=== PATIENT | female | born 1975 | race Caucasian/White ===

== ENCOUNTER → 2019-10-21 07:47 | Outpatient (BNVA) | payer BC, SELFPAY | PROVIDERS: Family Provider Family Medicine; PCP Nurse Practitioner; Visit Provider Nurse Practitioner Psychiatric/Mental Health | DX: F33.3 Major depressive disorder, recurrent, severe with psychotic symptoms (principal); F41.1 Generalized anxiety disorder | CPT/HCPCS: 99214 ==

== ENCOUNTER → 2019-11-01 07:41 | Outpatient (BNVA) | payer BC, SELFPAY | PROVIDERS: Family Provider Family Medicine; PCP Nurse Practitioner; Visit Provider Social Worker | DX: F33.2 Major depressive disorder, recurrent severe without psychotic features (principal); F43.12 Post-traumatic stress disorder, chronic; F43.8 Other reactions to severe stress | CPT/HCPCS: 90834 ==

== ENCOUNTER → 2019-11-05 15:35 | Outpatient (BNVA) | payer BC, SELFPAY | PROVIDERS: Family Provider Family Medicine; PCP Nurse Practitioner; Referring Provider Nurse Practitioner; Visit Provider Obstetrics & Gynecology | DX: N95.0 Postmenopausal bleeding (principal) | CPT/HCPCS: 83001; 84146; 84443; 84703; 85025 ==

== ENCOUNTER → 2019-11-11 14:04 | Outpatient (BNVA) | payer BC, SELFPAY | PROVIDERS: Family Provider Family Medicine; PCP Nurse Practitioner; Visit Provider Obstetrics & Gynecology | DX: N93.9 Abnormal uterine and vaginal bleeding, unspecified (principal); N83.202 Unspecified ovarian cyst, left side | CPT/HCPCS: 76830 ==

== ENCOUNTER 2019-11-15 06:00 | Outpatient (CLI) | payer BC, SELFPAY | END 2019-11-15 07:00 | disposition home or self-care (01) | LOC: RADSHAW 04-18 11:46 | PROVIDERS: Family Provider Nurse Practitioner Family; PCP Nurse Practitioner Family; Visit Provider Social Worker | DX: F33.2 Major depressive disorder, recurrent severe without psychotic features (principal); F43.12 Post-traumatic stress disorder, chronic; F43.8 Other reactions to severe stress | CPT/HCPCS: 90834 ==

== ENCOUNTER → 2019-11-29 10:21 | Outpatient (BNVA) | payer BC, SELFPAY | PROVIDERS: Family Provider Family Medicine; PCP Nurse Practitioner; Visit Provider Social Worker | DX: F33.2 Major depressive disorder, recurrent severe without psychotic features (principal); F43.12 Post-traumatic stress disorder, chronic | CPT/HCPCS: 90834 ==

== ENCOUNTER → 2019-12-06 09:24 | Outpatient (BNVA) | payer BC, SELFPAY | PROVIDERS: Family Provider Family Medicine; PCP Nurse Practitioner; Visit Provider Social Worker | DX: F41.1 Generalized anxiety disorder (principal); F33.3 Major depressive disorder, recurrent, severe with psychotic symptoms | CPT/HCPCS: 90834 ==

== ENCOUNTER → 2019-12-21 07:51 | Outpatient (BNVA) | payer BC, SELFPAY | PROVIDERS: Family Provider Family Medicine; PCP Nurse Practitioner; Visit Provider Nurse Practitioner Psychiatric/Mental Health | DX: F33.3 Major depressive disorder, recurrent, severe with psychotic symptoms (principal); F41.1 Generalized anxiety disorder; F43.12 Post-traumatic stress disorder, chronic | CPT/HCPCS: 99214 ==

== ENCOUNTER → 2019-12-22 08:57 | Outpatient (BNVA) | payer BC, SELFPAY | PROVIDERS: Family Provider Family Medicine; PCP Nurse Practitioner; Visit Provider Obstetrics & Gynecology | DX: N91.1 Secondary amenorrhea (principal); Z30.9 Encounter for contraceptive management, unspecified; E03.9 Hypothyroidism, unspecified | CPT/HCPCS: 84443 ==

== ENCOUNTER → 2019-12-23 07:58 | Outpatient (BNVA) | payer BC, SELFPAY | PROVIDERS: Family Provider Family Medicine; PCP Nurse Practitioner; Visit Provider Social Worker | DX: F41.1 Generalized anxiety disorder (principal); F31.89 Other bipolar disorder | CPT/HCPCS: 90834 ==

== ENCOUNTER → 2019-12-30 08:17 | Outpatient (BNVA) | payer BC, SELFPAY | PROVIDERS: Family Provider Family Medicine; PCP Nurse Practitioner; Visit Provider Nurse Practitioner Psychiatric/Mental Health | DX: F33.3 Major depressive disorder, recurrent, severe with psychotic symptoms (principal) | CPT/HCPCS: 99214 ==

== ENCOUNTER → 2020-01-05 09:11 | Outpatient (BNVA) | payer BC, SELFPAY | PROVIDERS: Family Provider Family Medicine; Visit Provider Social Worker | DX: F33.2 Major depressive disorder, recurrent severe without psychotic features (principal); F41.1 Generalized anxiety disorder; F31.89 Other bipolar disorder | CPT/HCPCS: 90834 ==

== ENCOUNTER → 2020-01-12 07:57 | Outpatient (BNVA) | payer BC, SELFPAY | PROVIDERS: Family Provider Family Medicine; Visit Provider Social Worker | DX: F33.3 Major depressive disorder, recurrent, severe with psychotic symptoms (principal); F43.12 Post-traumatic stress disorder, chronic; F43.29 Adjustment disorder with other symptoms | CPT/HCPCS: 90834 ==

== ENCOUNTER → 2020-01-17 07:38 | Outpatient (BNVA) | payer BC, SELFPAY | PROVIDERS: Family Provider Family Medicine; Visit Provider Nurse Practitioner Psychiatric/Mental Health | DX: F33.3 Major depressive disorder, recurrent, severe with psychotic symptoms (principal); F41.1 Generalized anxiety disorder | CPT/HCPCS: 99214 ==

== ENCOUNTER 2020-01-19 14:57 | Outpatient (CLI) | payer BC, SELFPAY ==
--- NOTE | 2020-01-19 | MR_ITS ---
WS: [id number] MRI LUMBAR SPINE NONCONTRAST TECHNIQUE: Sagittal T1, T2 and STIR imaging. Axial T1 and T2 imaging. CLINICAL INFORMATION: RADICULOPATHY LUMBAR REGION COMPARISON: None. FINDINGS: Mild lumbar curve. No acute compression. No high-grade central canal stenosis. Hypertrophic changes l ower thoracic spine. Small disc protrusions in the mid thoracic spine at T6-T8 with mild central shai l stenosis. L1-L2: Normal. L2-L3: Mild annular bulging. Narrowing of the right subarticular recess. Mild right and no significan t left foraminal narrowing. Moderate facet arthropathy. L3-L4: Small left foraminal protrusion slightly impinges the exiting left L3 nerve root with mild to moderate left foraminal narrowing. Right foramen is patent. Moderate facet arthropathy. L4-L5: Mild disc bulging with mild central canal stenosis and narrowing of the subarticular recess bi laterally. Moderate facet arthropathy. Small right foraminal protrusion with mild right greater than left foraminal narrowing. L5-S1:Mild annular bulging. Spinal canal and foramen are patent. Mild facet arthropathy. Visualized pelvic bony structures: Normal. Paravertebral soft tissues: Normal. MR/MR lumbar spine wo con* [id number] IMPRESSION: 1. Mild lumbar curve. No acute compression. No high-grade central canal stenos is. 2. Annular bulging L4-5 with narrowing of the subarticular recess bilaterally and slight impingement traversing L5 nerve roots. Mild central canal stenosis a t this level with moderate facet arthropathy. 3. Small right foraminal protrusion L4-5 with mild right foraminal narrowing. 4. Left foraminal protrusion L3-4 impinges the exiting left L3 nerve root with mild to moderate left foraminal narrowing. 5. Right subarticular protrusion L2-3 slightly impinges the traversing right L 3 nerve root with mild right foraminal narrowing. 6. Moderate facet arthropathy L3-L5.
== END 2020-01-19 14:58 | disposition home or self-care (01) ==
LOC: RADSHAW 15:01
PROVIDERS: PCP Nurse Practitioner Family; Visit Provider Anesthesiology Pain Medicine
DX: M54.16 Radiculopathy, lumbar region (principal); M51.26 Other intervertebral disc displacement, lumbar region; M47.816 Spondylosis without myelopathy or radiculopathy, lumbar region
CPT/HCPCS: 72148

== ENCOUNTER → 2020-01-20 07:59 | Outpatient (BNVA) | payer BC, SELFPAY | PROVIDERS: PCP Nurse Practitioner Family; Visit Provider Social Worker | DX: F33.3 Major depressive disorder, recurrent, severe with psychotic symptoms (principal); F43.12 Post-traumatic stress disorder, chronic | CPT/HCPCS: 90834 ==

== ENCOUNTER 2020-01-21 07:30 | Day surgery (SDC) | payer BC, SELFPAY ==
[2020-01-19 10:00] VITALS: BMI 39.3
[2020-01-21] MEDS: sodium chloride 0.9% 1,000 ML 30 ML IV (07:45)
[2020-01-21 07:49] VITALS: BP 129/68; PULSE 73; RESP 18; TEMP 36.3; O2SAT 96
[2020-01-21 07:58] LABS: Glucose Point of Care 106 mg/dL (70-110)
[2020-01-21 08:00] LABS: OR HCG Qualitative Urine Negative (Negative)
--- NOTE | 2020-01-21 08:05 | ANES.PREANE2 ---
Pre-Anesthetic Assessment Pre-Anesthetic Assessment: Height/Weight: Height 1.63 m Weight 103.873 kg Temp Pulse Resp BP Pulse Ox 97.3 F L 73 18 129/68 96 01/21/20 07:49 01/21/20 07:49 01/21/20 07:49 01/21/20 07:49 01/21/20 07:49 Preop Diagnosis: change in bowel habits Proposed Procedure: Operation Date: 01/21/20 09:05 Proposed Procedures p EGD [id number], 18665, R19.4, R19.7(Not Applicable) - Vitaliy Haji MD s Colonoscopy(Not Applicable) - Vitaliy Haji MD Familial anesthetic complications: None Was Beta Sandeep taken within 24 hours: Yes Last intake: Intake Last Liquid Date 01/20/20 Last Liquid Time 23:45 Last Solid Date 01/19/20 Social: Social History: No alcohol and No tobacco Exam: Pre-Anes Outpt Exam: alert, oriented x 3, clear to auscultation bilaterally and regular rate & rhythm Airway: Cervical ROM: WNL MP: 1 Dentition: Chipped Pulmonary: Pulmonary: Sleep apnea (CPAP) CV/HEM: CV/HEM: Murmur : : None reported Hepatic: Hepatic: None reported GI: GI: GERD Metabolic: Metabolic: DM, Morbid obesity and Thyroid Musc/skel: Musc/skel: Lower Back Pain Anesthetic Plan: ASA status: 2 Anesthesia: MAC Risk of > 500 ml blood loss (7ml/kg in children): No PFSH Anesthesia PFSH: Medical History (Updated 12/30/19 @ 13:52 by Kp George MD) Diabetes mellitus Generalized anxiety disorder GI bleed due to NSAIDs History of gallbladder disease Major depressive disorder, recurrent episode with mood-congruent psychotic features Obstructive sleep apnea Surgical History History of carpal tunnel surgery Family History Mother Heart disease Stroke Diabetes Brother Diabetes Grandmother Stroke maternal Social History Smoking and tobacco status: former smoker Quit status (tobacco): has quit using tobacco Year quit tobacco: 2011 Alcohol intake: never Marital status: History of recent travel: No Current gender identity: Female Data Anesthesia Other Labs: Laboratory Results - last 48 hr 01/21/20 01/21/20 07:54 07:58 POC Glucose 106 Urine HCG, Qual Negative Cardiac Studies: No Data to Display
--- NOTE | 2020-01-21 09:10 | P.HP_ITS ---
Same Day Surgery H&P Indication for Procedure/HPI DATE OF PROCEDURE: January 21, 2020 CHIEF COMPLAINT/INDICATIONFOR SURGICAL PROCEDURE: Chronic diarrhea PREOP DIAGNOSIS: change in bowel habits PLANNED PROCEDRUE: Operation Date: 01/21/20 09:05 Proposed Procedures p EGD 56480, 59853, R19.4, R19.7(Not Applicable) - Vitaliy Haji MD s Colonoscopy(Not Applicable) - Vitaliy Haji MD Medications/Allergies* Home Medications Medication Instructions Recorded Confirmed Type amitriptyline 100 mg tablet 100 mg PO .HS tab 09/06/19 01/21/20 History metformin 1,000 mg tablet,extended 1,000 mg PO BID 09/06/19 01/21/20 History release 24hr oxycodone 30 mg tablet 30 mg PO Q4H PRN 09/06/19 01/21/20 History pregabalin 75 mg capsule 75 mg PO BID 09/06/19 01/21/20 History dicyclomine 10 mg capsule 10 mg PO BID 10/21/19 01/21/20 History liraglutide 0.6 mg/0.1 mL (18 mg/3 0.6 mg SUBCUT Q24H ml 10/21/19 01/21/20 History mL) subcutaneous pen injector pantoprazole 40 mg tablet,delayed 40 mg PO BID tab 10/21/19 01/21/20 History release vitamins no.69-iron 27 1 cap PO DAILY 10/21/19 01/21/20 History mg-folate no.6 1 mg-dha 400 mg capsule ropinirole 4 mg tablet 4 mg PO .QHS tab 10/21/19 01/21/20 History vitamin B complex 1 tab PO DAILY 10/21/19 01/21/20 History metoprolol tartrate 25 mg tablet 25 mg PO DAILY 12/30/19 01/21/20 History methocarbamol 500 mg tablet 500 mg PO TID PRN tab 01/14/20 01/21/20 History fenofibrate micronized 200 mg PO DAILY 01/19/20 01/21/20 History Allergies/Adverse Reactions Allergy/AdvReac Type Severity Reaction Status Date / Time No Known Allergies Allergy Verified 12/30/19 11:04 Pertinent History/Comorbid Conditions* Medical History (Updated 12/30/19 @ 13:52 by Kp George MD) Diabetes mellitus Generalized anxiety disorder GI bleed due to NSAIDs History of gallbladder disease Major depressive disorder, recurrent episode with mood-congruent psychotic features Obstructive sleep apnea Surgical History (Updated 10/14/19 @ 11:45 by Vitaliy Haji MD) History of carpal tunnel surgery Family History (Updated 11/05/19 @ 14:56 by Lillie Andrew RN) Diabetes Mother Brother Heart disease Mother Stroke Mother Grandmother maternal Social History Smoking and tobacco status: former smoker Quit status (tobacco): has quit using tobacco Year quit tobacco: 2011 Alcohol intake: never Marital status: History of recent travel: No Current gender identity: Female Pertinent Exam Findings alert, oriented x 3, clear to auscultation bilaterally, regular rate & rhythm, operative site marked and procedure specific exam findings Recommendations Surgery/Procedure today Coding Level of Care Code Acute Mental Health Counselor for Wili Swartz
[2020-01-21 10:02] VITALS: BP 133/86; PULSE 82; RESP 20; TEMP 36.1; O2SAT 100
[2020-01-21 10:24] VITALS: BP 158/80; PULSE 70; RESP 18; O2SAT 98
== END 2020-01-21 11:09 | disposition home or self-care (01) ==
PROVIDERS: PCP Nurse Practitioner Family; Visit Provider Internal Medicine
PROC: 0DJ08ZZ Inspection of Upper Intestinal Tract, Via Natural or Artificial Opening Endoscopic (ICD-10-PCS; CPT 43235; principal; 2020-01-21 09:00)
PROC: 0DJD8ZZ Inspection of Lower Intestinal Tract, Via Natural or Artificial Opening Endoscopic (ICD-10-PCS; CPT 45378; 2020-01-21 09:00)
DX: R19.4 Change in bowel habit (principal); R19.7 Diarrhea, unspecified; E11.9 Type 2 diabetes mellitus without complications; Z79.84 Long term (current) use of oral hypoglycemic drugs; G47.33 Obstructive sleep apnea (adult) (pediatric); F33.3 Major depressive disorder, recurrent, severe with psychotic symptoms; Z87.891 Personal history of nicotine dependence; E66.01 Morbid (severe) obesity due to excess calories; Z68.39 Body mass index [BMI] 39.0-39.9, adult
CPT/HCPCS: 12345; 36416; 43239; 45380; 82274; 82962; 83630; 84703; 87493; 87506; 88305; J2704; J3010; J7030

== ENCOUNTER 2020-01-22 13:40 | Outpatient (CLI) | payer BC, SELFPAY ==
--- NOTE | 2020-01-22 14:10 | XRR_ITS ---
PROCEDURE INFORMATION: Exam: XR Lumbosacral Spine, 2 or 3 Views Exam date and time: 01/22/2020 2:23 PM Age: 44 years old Clinical indication: Low back pain; Patient HX: Please comment on presence or absence of spinal instability; Additional info: Radiculopathy, lumbar TECHNIQUE: Imaging protocol: XR of the lumbosacral spine, 2 or 3 views. COMPARISON: CR Lumbar Spine Flex/Extens [id number] 06/16/2019 10:45 AM FINDINGS: Vertebrae: Large anterior osteophytes in the lower thoracic spine. Mild lumbar spondylosis. No instability with flexion and extension. Soft tissues: Normal. XR/XR lumbar spine f/e only [id number] IMPRESSION: 1. Mild lumbar spondylosis. 2. No instability with flexion and extension.
== END 2020-01-22 13:41 | disposition home or self-care (01) ==
PROVIDERS: PCP Nurse Practitioner Family; Visit Provider Anesthesiology Pain Medicine
DX: M54.16 Radiculopathy, lumbar region (principal); M47.816 Spondylosis without myelopathy or radiculopathy, lumbar region
CPT/HCPCS: 72120

== ENCOUNTER → 2020-01-27 08:20 | Outpatient (BNVA) | payer BC, SELFPAY | PROVIDERS: PCP Nurse Practitioner Family; Visit Provider Nurse Practitioner Psychiatric/Mental Health | DX: F33.3 Major depressive disorder, recurrent, severe with psychotic symptoms (principal); F41.1 Generalized anxiety disorder; F43.12 Post-traumatic stress disorder, chronic; F48.1 Depersonalization-derealization syndrome | CPT/HCPCS: 99214 ==

== ENCOUNTER 2020-02-03 15:10 | Outpatient (CLI) | payer BC, SELFPAY ==
--- NOTE | 2020-02-03 15:17 | MR_ITS ---
WS: [id number] MRI BRAIN WITH HIGH-RESOLUTION IMAGING THROUGH THE INTERNAL AUDITORY CANALS WITHOUT AND WITH CONTRAST HISTORY: HEARING LOSS IN RIGHT EAR COMPARISON: None available. TECHNIQUE: Multiplanar, multisequence imaging is performed through the brain. Additional 3 mm imaging performed in multiple planes through the internal auditory canal. Postcontrast imaging with 17 ml's of Prohance. No acute intracranial hemorrhage, midline shift, edema or mass effect. Ventricles and extra-axial spaces are normal. No inferior displacement of cerebellar tonsils. Clivus and pituitary gland are normal. Internal and external auditory canals: Unremarkable. Cranial nerves VII and VIII complexes: Unremarkable. No enhancement or mass. Cerebellopontine angles: Normal. Paranasal sinuses: Normal. Mastoid air cells: Increased signal in the mastoid air cells bilaterally. Calvarium and scalp: Normal. Visualized t[place] of [place] and dural venous sinuses demonstrate no abnormality. MR/MR iac's wo/w con* [id number] IMPRESSION: 1. Negative MRI internal auditory canals. No mass or abnormal enhancement. 2. Moderate bilateral mastoid air cell disease.
== END 2020-02-03 15:11 | disposition home or self-care (01) ==
LOC: RADWPI 15:14
PROVIDERS: Family Provider Nurse Practitioner Family; PCP Nurse Practitioner Family; Visit Provider Specialist
DX: H91.91 Unspecified hearing loss, right ear (principal); H93.13 Tinnitus, bilateral; F41.1 Generalized anxiety disorder; F43.12 Post-traumatic stress disorder, chronic; F48.1 Depersonalization-derealization syndrome
CPT/HCPCS: 90834; 70553; A9579

== ENCOUNTER 2020-02-15 14:28 | Outpatient (RCR) | payer BC, SELFPAY | END 2020-02-29 23:59 | disposition home or self-care (01) | LOC: SPT 14:28 | PROVIDERS: PCP Nurse Practitioner Family; Visit Provider Licensed Practical Nurse | DX: G89.29 Other chronic pain (principal); M54.9 Dorsalgia, unspecified | CPT/HCPCS: 97110; 97161 ==

== ENCOUNTER → 2020-02-23 07:29 | Outpatient (BNVA) | payer BC, SELFPAY | PROVIDERS: Family Provider Nurse Practitioner Family; PCP Nurse Practitioner Family; Visit Provider Nurse Practitioner Psychiatric/Mental Health | DX: F33.3 Major depressive disorder, recurrent, severe with psychotic symptoms (principal); F41.1 Generalized anxiety disorder; F43.12 Post-traumatic stress disorder, chronic; F48.1 Depersonalization-derealization syndrome | CPT/HCPCS: 99214 ==

== ENCOUNTER 2020-03-01 06:00 | Outpatient (RCR) | payer BC, SELFPAY | END 2020-03-31 23:59 | disposition home or self-care (01) | LOC: SPT 06:00 | PROVIDERS: PCP Nurse Practitioner Family; Visit Provider Licensed Practical Nurse | DX: M51.17 Intervertebral disc disorders with radiculopathy, lumbosacral region (principal) | CPT/HCPCS: 97110 ==

== ENCOUNTER 2020-03-21 09:58 | Outpatient (CLI) | payer BC, SELFPAY ==
--- NOTE | 2020-03-21 10:15 | MR_ITS ---
WS: [id number] MRI THORACIC SPINE WITHOUT CONTRAST TECHNIQUE: Sagittal T1, T2 and STIR imaging. Axial T2 imaging. Noncontrast imaging obtained. CLINICAL INFORMATION: M51.17 Intervertebral disc disorders with radiculopathy, ... COMPARISON: None. FINDINGS: Mild thoracic curve. Mild thoracic kyphosis. Small disc protrusions in the mid thoracic spine at T6-T 8. Slight contact of the thoracic cord. Additional small protrusion at T4-5 with slight contact of th e thoracic cord. T4-5: Tiny left pericentral protrusion. Slight contact of the thoracic cord. Spinal canal and foramen are patent T5-6: Normal T6-7: Small central protrusion. Slight contact of the thoracic cord. Spinal canal and foramen are pat ent. T7-T8: Tiny central protrusion. Spinal canal and foramen are patent. Mild facet arthropathy. T8-9: Small central disc protrusion. Mild to moderate central canal stenosis. Moderate facet arthropa thy. Mild right greater than left foraminal narrowing. T9-T10: Normal Moderate facet arthropathy in the lower thoracic spine. Mild right T11-T12 foraminal narrowing. Normal prevertebral soft tissues. Small disc protrusion C5-C6 and C6-C7 with mild central canal steno sis. MR/MR thoracic spin wo con* [id number] IMPRESSION: 1. Mild thoracic kyphosis. No acute compression fractures. 2. Small disc protrusions at T4-T5, T6-T7, T7-8 and T8-9. 3. Mild to moderate central canal stenosis T8-T9 with slight contact of the th oracic cord. 4. Mild central canal stenosis with slight contact of the thoracic cord at T6 -7 and T7-8 5. Moderate facet arthropathy lower thoracic spine.
--- NOTE | 2020-03-21 11:00 | XRR_ITS ---
PROCEDURE INFORMATION: Exam: XR Thoracic Spine, 3 Views Exam date and time: 03/21/2020 3:00 PM Age: 44 years old Clinical indication: Pain in thoracic spine; Additional info: Thoracic back pain TECHNIQUE: Imaging protocol: XR of the thoracic spine, 3 views. COMPARISON: MR thoracic spin wo con* [id number] 03/21/2020 9:59 AM FINDINGS: Vertebrae: There is moderate osteoarthritis with intervertebral disc space narrowing and bone bridging at multiple levels. No acute fracture. Normal alignment. Soft tissues: Unremarkable. XR/XR thoracic spine 3V* [id number] IMPRESSION: 1. Osteoarthritis 2. Otherwise negative for acute bone abnormality
== END 2020-03-21 09:59 | disposition home or self-care (01) ==
LOC: RADWPI 10:03
PROVIDERS: Family Provider Nurse Practitioner Family; PCP Nurse Practitioner Family; Visit Provider Licensed Practical Nurse
DX: M47.814 Spondylosis without myelopathy or radiculopathy, thoracic region (principal); M51.17 Intervertebral disc disorders with radiculopathy, lumbosacral region; M40.294 Other kyphosis, thoracic region; M51.24 Other intervertebral disc displacement, thoracic region; M48.04 Spinal stenosis, thoracic region
CPT/HCPCS: 72072; 72146

== ENCOUNTER → 2020-03-23 07:18 | Outpatient (BNVA) | payer BC, SELFPAY | PROVIDERS: Family Provider Nurse Practitioner Family; PCP Nurse Practitioner Family; Visit Provider Nurse Practitioner Psychiatric/Mental Health | DX: F33.3 Major depressive disorder, recurrent, severe with psychotic symptoms (principal); F41.1 Generalized anxiety disorder; F43.12 Post-traumatic stress disorder, chronic; F48.1 Depersonalization-derealization syndrome | CPT/HCPCS: 99214 ==

== ENCOUNTER → 2020-03-29 07:37 | Outpatient (BNVA) | payer BC, SELFPAY | PROVIDERS: Family Provider Nurse Practitioner Family; PCP Nurse Practitioner Family; Visit Provider Psychiatry & Neurology Psychiatry | DX: F32.9 Major depressive disorder, single episode, unspecified (principal); F60.9 Personality disorder, unspecified | CPT/HCPCS: 99215 ==

== ENCOUNTER → 2020-04-07 07:29 | Outpatient (BNVA) | payer BC, SELFPAY | PROVIDERS: Family Provider Nurse Practitioner Family; PCP Nurse Practitioner Family; Visit Provider Psychiatry & Neurology Psychiatry | DX: F32.9 Major depressive disorder, single episode, unspecified (principal); M54.5 Low back pain; M51.17 Intervertebral disc disorders with radiculopathy, lumbosacral region | CPT/HCPCS: 99214 ==

== ENCOUNTER → 2020-04-14 09:35 | Outpatient (BNVA) | payer BC, SELFPAY | PROVIDERS: Family Provider Nurse Practitioner Family; PCP Nurse Practitioner Family; Referring Provider Obstetrics & Gynecology; Visit Provider Internal Medicine | DX: E03.9 Hypothyroidism, unspecified (principal); G47.33 Obstructive sleep apnea (adult) (pediatric) | CPT/HCPCS: 99203 ==

== ENCOUNTER 2020-05-17 12:30 | Outpatient (CLI) | payer BC, SELFPAY ==
--- NOTE | 2020-05-17 12:38 | USCV_ITS ---
David Tamara Age: 44 Gender: F : 1975 Exam Date: 05/17/2020 12:50 Ordering Phys: Dennise Ruiz APN Technologist: Penny Aguila [place] [facility] [place]: LT BRUIT Risk Factors: Previous Vascular Surgery: Right Brachial BP: / Left Brachial BP: / Right Left Velocity (cm/s) Spectral Plaque Velocity (cm/s) Spectral Plaque Syst/Diast Broadening Syst/Diast Broadening 94.80/ 17.60 Prox CCA 122.30/ 21.00 118.00/22.10 Mid CCA 117.00/ 31.60 93.70/ 25.40 Distal CCA 114.40/ 34.20 130.10/28.70 Prox ICA 124.90/ 35.50 103.60/24.30 Mid ICA 90.70 / 31.60 120.20/40.80 Distal ICA 107.80/ 30.20 89.30 ECA 109.10 1.10 ICA/CCA 1.07 Antegrade Vertebral Antegrade 48.50/ 9.90 cm/s 38.10/ 13.10 cm/s Tri Subclavian Tri FINDINGS Comparison: none available. No significant elevation of systolic or diastolic velocities. Waveforms are normal. No significant amount of calcified plaque or intimal thickening identified. Spongiform right thryroid nodule. CONCLUSIONS Normal carotid doppler ultrasound. Dr. Odalys Greene DO (Electronically Signed) Final Date: 17 May 2020 14:16 S
== END 2020-05-17 12:31 | disposition home or self-care (01) ==
LOC: RAD 12:35
PROVIDERS: PCP Nurse Practitioner Family; Visit Provider Nurse Practitioner
DX: R09.89 Other specified symptoms and signs involving the circulatory and respiratory systems (principal)
CPT/HCPCS: 93880

== ENCOUNTER → 2020-05-19 10:37 | Outpatient (BNVA) | payer BC, SELFPAY | PROVIDERS: PCP Nurse Practitioner Family; Visit Provider Psychiatry & Neurology Psychiatry | DX: F32.9 Major depressive disorder, single episode, unspecified (principal); F43.12 Post-traumatic stress disorder, chronic | CPT/HCPCS: 80061; 83036; 99214 ==

== ENCOUNTER → 2020-06-22 08:30 | Outpatient (BNVA) | payer BC, SELFPAY | PROVIDERS: PCP Nurse Practitioner Family; Visit Provider Psychiatry & Neurology Psychiatry | DX: F32.9 Major depressive disorder, single episode, unspecified (principal); Z72.820 Sleep deprivation; F43.12 Post-traumatic stress disorder, chronic | CPT/HCPCS: 99214 ==

== ENCOUNTER 2020-07-25 09:09 | Outpatient (CLI) | payer BC, SELFPAY ==
[2020-07-20 13:10] VITALS: BP 122/53; BMI 42.4
--- NOTE | 2020-07-25 09:18 | MM_ITS ---
WS: [id number] BILATERAL DIGITAL SCREENING MAMMOGRAPHY WITH CAD CLINICAL INFORMATION: SCREENING HISTORY: Screening mammogram. No current complaints. COMPARISON: TECHNIQUE: Bilateral CC and MLO views. FINDINGS: Scattered fibroglandular densities bilaterally. No suspicious focal mass, asymmetry, calcifications, or architectural distortion. No evidence of malignancy. MM/[place] [id number] IMPRESSION: BI-RADS: 1-Negative FOLLOW UP: 1 Year Follow-up Recommend return to annual screening mammography.
== END 2020-07-25 09:10 | disposition home or self-care (01) ==
LOC: RADSHAW 09:12
PROVIDERS: PCP Nurse Practitioner Family; Visit Provider Nurse Practitioner Family
DX: Z12.31 Encounter for screening mammogram for malignant neoplasm of breast (principal)
CPT/HCPCS: 77067

== ENCOUNTER → 2020-07-26 14:16 | Outpatient (BNVA) | payer BC, SELFPAY ==
[2020-07-20 13:10] VITALS: BP 122/53; BMI 42.4
== END ==
PROVIDERS: PCP Nurse Practitioner Family; Visit Provider Internal Medicine
DX: E03.9 Hypothyroidism, unspecified (principal); E66.01 Morbid (severe) obesity due to excess calories; Z68.41 Body mass index [BMI] 40.0-44.9, adult; G47.33 Obstructive sleep apnea (adult) (pediatric); R63.5 Abnormal weight gain
CPT/HCPCS: 99214

== ENCOUNTER 2020-08-10 08:41 | Outpatient (CLI) | payer BC, SELFPAY ==
[2020-07-20 13:10] VITALS: BP 122/53; BMI 42.4
[2020-08-10 09:32] LABS: Urine Creatinine 94 mg/dL (28-217)
[2020-08-10 09:46] LABS: Total Volume Urine 1600 ml
[2020-08-15 14:03] LABS: Free Cortisol Urine 19.8 mcg/24 h (4.0-50.0); Total Urine 1600 mL; Urine Creatinine 1.36 g/24 h (0.50-2.15)
== END 2020-08-10 08:42 | disposition home or self-care (01) ==
PROVIDERS: PCP Nurse Practitioner Family; Visit Provider Internal Medicine
DX: R63.5 Abnormal weight gain (principal)
CPT/HCPCS: 82530; 82570

== ENCOUNTER → 2020-08-15 09:09 | Outpatient (BNVA) | payer BC, SELFPAY ==
[2020-07-20 13:10] VITALS: BP 122/53; BMI 42.4
== END ==
PROVIDERS: PCP Nurse Practitioner Family; Visit Provider Psychiatry & Neurology Psychiatry
DX: F32.9 Major depressive disorder, single episode, unspecified (principal); Z72.820 Sleep deprivation; F43.12 Post-traumatic stress disorder, chronic
CPT/HCPCS: 99214

== ENCOUNTER → 2020-09-21 09:50 | Outpatient (BNVA) | payer SELFPAY ==
[2020-07-20 13:10] VITALS: BP 122/53; BMI 42.4
== END ==
PROVIDERS: PCP Nurse Practitioner Family; Visit Provider Internal Medicine
DX: E03.9 Hypothyroidism, unspecified (principal); E66.01 Morbid (severe) obesity due to excess calories; F32.9 Major depressive disorder, single episode, unspecified; G47.33 Obstructive sleep apnea (adult) (pediatric); R63.5 Abnormal weight gain
CPT/HCPCS: 99215

== ENCOUNTER → 2020-09-26 07:59 | Outpatient (BNVA) | payer OTHER, SELFPAY ==
[2020-07-20 13:10] VITALS: BP 122/53; BMI 42.4
== END ==
PROVIDERS: PCP Nurse Practitioner Family; Visit Provider Psychiatry & Neurology Psychiatry
DX: F32.9 Major depressive disorder, single episode, unspecified (principal); Z72.820 Sleep deprivation; F43.12 Post-traumatic stress disorder, chronic
CPT/HCPCS: 99214

== ENCOUNTER → 2020-11-07 10:54 | Outpatient (BNVA) | payer OTHER, SELFPAY ==
[2020-07-20 13:10] VITALS: BP 122/53; BMI 42.4
== END ==
PROVIDERS: PCP Nurse Practitioner Family; Visit Provider Psychiatry & Neurology Psychiatry
DX: F32.9 Major depressive disorder, single episode, unspecified (principal); F43.12 Post-traumatic stress disorder, chronic
CPT/HCPCS: 99214

== ENCOUNTER → 2020-11-27 10:25 | Outpatient (BNVA) | payer BC, SELFPAY ==
[2020-07-20 13:10] VITALS: BP 122/53; BMI 42.4
== END ==
PROVIDERS: PCP Nurse Practitioner Family; Visit Provider Internal Medicine
DX: E03.9 Hypothyroidism, unspecified (principal); E11.9 Type 2 diabetes mellitus without complications; E66.01 Morbid (severe) obesity due to excess calories; G47.33 Obstructive sleep apnea (adult) (pediatric); R63.5 Abnormal weight gain
CPT/HCPCS: 99214

== ENCOUNTER → 2020-12-21 11:19 | Outpatient (BNVA) | payer OTHER, SELFPAY ==
[2020-07-20 13:10] VITALS: BP 122/53; BMI 42.4
== END ==
PROVIDERS: PCP Nurse Practitioner Family; Visit Provider Psychiatry & Neurology Psychiatry
DX: F32.9 Major depressive disorder, single episode, unspecified (principal); F43.12 Post-traumatic stress disorder, chronic
CPT/HCPCS: 99214

== ENCOUNTER 2021-02-20 15:23 | Outpatient (CLI) | payer OTHER, SELFPAY ==
[2020-07-20 13:10] VITALS: BP 122/53; BMI 42.4
--- NOTE | 2021-02-20 | USCV_ITS ---
Tamara Hernandez Age: 45 Gender: F : 1975 Exam Date: 02/20/2021 16:12 Ordering Phys: Antonella ChairezP Technologist: Kathie Clifton [place]am [place] [facility] [place] Indication: EDEMA BP: 140 / 70 HR: 87 Rhythm: Sinus Technical Quality: Poor because of body habitus MEASUREMENTS (Male / Female) Normal Values 2D ECHO LV Diastolic Diameter PLAX 4.8 cm 4.2 - 5.9 / 3.9 - 5.3 cm LV Systolic Diameter PLAX 2.8 cm IVS Diastolic Thickness 1.5 cm 0.6 - 1.0 / 0.6 - 0.9 cm IVS Systolic Thickness 2.2 cm LVPW Diastolic Thickness 1.6 cm 0.6 - 1.0 / 0.6 - 0.9 cm LVPW Systolic Thickness 2.1 cm LVOT Diameter 2.0 cm LV Ejection Fraction 2D Teich 71.8 % LV Ejection Fraction MOD 2C 60.4 % LV Ejection Fraction 2C AL 60.6 % LA Diameter 3.4 cm LA Width 2.9 cm LA Height 3.6 cm RA Width 3.3 cm RA Height 4.5 cm Aorta at Sinotubular Diameter 2.9 cm M-MODE Aortic Annulus Diameter 2.4 cm LA Ao Ratio MM 1.3 MV E Point Septal Separation 0.6 cm DOPPLER MV Peak Velocity 120.0 cm/s MV Area PHT 2.8 cm squared Mitral E to A Ratio 1.1 MV E' Velocity 47.5 cm/s Mitral E to MV E' Ratio 6.3 Mitral E to LV E' Lateral Ratio 8.8 Mitral E to LV E' Septal Ratio 4.9 TV Peak E Velocity 47.0 cm/s Right Atrial Pressure 3.0 mmHg PV Peak Velocity 135.0 cm/s RV Acceleration Time 0.1 s RV Ejection Time 0.3 s RV AcT/ET 0.5 FINDINGS Left Ventricle Normal left ventricular size and systolic function, EF 57 %. No regional wall motion abnormalities. Right Ventricle The right ventricle is normal in size and function. Right Atrium The right atrium is normal in size. Left Atrium The left atrium is normal in size. Mitral Valve No gross abnormalities noted Aortic Valve No gross abnormalities noted Tricuspid Valve No gross abnormalities noted Pulmonic Valve .Pulmonic valve not well visualized. Pericardium Normal pericardium without effusion. Aorta Normal aortic annulus size. CONCLUSIONS Normal left ventricular size and systolic function, EF 57 %. No regional wall motion abnormalities. Normal cardiac chamber sizes. No significant valve abnormalities noted No significant stenotic or related lesions Technically difficult study because of the poor ultrasonic window. Dr Parvez Everett MD FACC (Electronically Signed) Final Date: 20 February 2021 19:07 S
== END 2021-02-20 15:24 | disposition home or self-care (01) ==
PROVIDERS: PCP Nurse Practitioner Family; Visit Provider Nurse Practitioner Family
DX: R60.9 Edema, unspecified (principal)
CPT/HCPCS: 93306

== ENCOUNTER → 2021-10-30 11:16 | Outpatient (BNVA) | payer MEDICAID, OTHER, SELFPAY ==
[2021-09-25 16:05] VITALS: BP 154/81; BMI 45.6
== END ==
PROVIDERS: PCP Nurse Practitioner Family; Visit Provider Social Worker
DX: F41.1 Generalized anxiety disorder (principal); F33.3 Major depressive disorder, recurrent, severe with psychotic symptoms
CPT/HCPCS: 90837; 90834

== ENCOUNTER 2021-12-06 07:25 | Outpatient (CLI) | payer MEDICAID, SELFPAY ==
[2021-09-25 16:05] VITALS: BP 154/81; BMI 45.6
--- NOTE | 2021-12-06 07:45 | US_ITS ---
WS: [id number] ULTRASOUND PELVIS TECHNIQUE: Transvaginal. CLINICAL INFORMATION: Amenorrhea LMP: ? : No. COMPARISON: November 11, 2019 FINDINGS: Uterus Orientation: Anteverted. Size: 7.0 x 3.6 x 5.1 cm Masses: None. Cervix: Complex prominent nabothian cyst in the cervix measuring 1.8 x 1.5 x 0.9 cm with internal sandor ris. No vascularity. Endometrium: Normal. Endometrium thickness: 0.89 cm. Adnexa: RIGHT ovarian cyst measuring 2.5 x 2.0 x 1.5 cm. Right ovary size: 3.0 x 2.2 x 2.5 cm. Left ovary size: 1.9 x 1.7 x 1.5 cm. Free fluid: None. Other findings: None. US/US transvaginal [id number] IMPRESSION: Technically difficult examination due to body habitus 1. Normal uterus and endometrium. Endometrium measures 8.9 mm. 2. Normal adnexa. 3. RIGHT ovarian cyst measuring 2.5 x 2.0 x 1.5 cm. Normal LEFT ovary. 4. Complex prominent nabothian cyst in the cervix measuring 1.8 x 1.5 x 0.9 cm with internal debris. No vascularity.
--- NOTE | 2021-12-06 07:48 | XR_ITS ---
WS: [id number] XR shoulder RT min 2V* [id number] REASON FOR EXAM: PAIN IN R SHOULDER FINDINGS: No acute fracture or focal bone lesion. Subchondral sclerosis and osteophytic spurring at the margins of the acromioclavicular joint. Joint s pace not significantly narrowed. Clinical humeral joint space is intact and well preserved. No soft tissue abnormality. XR/XR shoulder RT min 2V* [id number] IMPRESSION: Mild osteoarthritis in the acromioclavicular joint.
== END 2021-12-06 07:26 | disposition home or self-care (01) ==
PROVIDERS: PCP Nurse Practitioner Family; Visit Provider Internal Medicine
DX: N91.2 Amenorrhea, unspecified (principal); N83.201 Unspecified ovarian cyst, right side; N88.8 Other specified noninflammatory disorders of cervix uteri; M19.011 Primary osteoarthritis, right shoulder
CPT/HCPCS: 73030; 76830

== ENCOUNTER → 2022-02-05 11:05 | Outpatient (BNVA) | payer MEDICARE, MEDICAID, SELFPAY ==
[2021-09-25 16:05] VITALS: BP 154/81; BMI 45.6
== END ==
PROVIDERS: PCP Nurse Practitioner Family; Visit Provider Podiatrist Foot & Ankle Surgery
DX: M79.671 Pain in right foot (principal); M79.672 Pain in left foot; M21.41 Flat foot [pes planus] (acquired), right foot; M21.42 Flat foot [pes planus] (acquired), left foot; L60.3 Nail dystrophy; L84 Corns and callosities; M79.673 Pain in unspecified foot; E11.9 Type 2 diabetes mellitus without complications; M21.40 Flat foot [pes planus] (acquired), unspecified foot
CPT/HCPCS: 11055; 11721

== ENCOUNTER → 2022-02-06 14:43 | Outpatient (BNVA) | payer MEDICARE, MEDICAID, SELFPAY ==
[2021-09-25 16:05] VITALS: BP 154/81; BMI 45.6
== END ==
PROVIDERS: PCP Nurse Practitioner Family; Referring Provider Nurse Practitioner Family; Visit Provider Orthopaedic Surgery
DX: G56.01 Carpal tunnel syndrome, right upper limb (principal)
CPT/HCPCS: 99203

== ENCOUNTER → 2022-03-26 08:24 | Outpatient (BNVA) | payer MEDICARE, MEDICAID, SELFPAY ==
[2021-09-25 16:05] VITALS: BP 154/81; BMI 45.6
== END ==
PROVIDERS: PCP Nurse Practitioner Family; Visit Provider Nurse Practitioner Family
DX: G56.01 Carpal tunnel syndrome, right upper limb (principal)
CPT/HCPCS: 99214

== ENCOUNTER → 2022-03-27 14:10 | Outpatient (BNVA) | payer MEDICARE, MEDICAID, SELFPAY ==
[2021-09-25 16:05] VITALS: BP 154/81; BMI 45.6
== END ==
PROVIDERS: PCP Nurse Practitioner Family; Visit Provider Internal Medicine
DX: N83.201 Unspecified ovarian cyst, right side (principal); F17.200 Nicotine dependence, unspecified, uncomplicated; Z79.4 Long term (current) use of insulin; E11.42 Type 2 diabetes mellitus with diabetic polyneuropathy; E03.9 Hypothyroidism, unspecified; E78.2 Mixed hyperlipidemia; N91.2 Amenorrhea, unspecified
CPT/HCPCS: 99214

== ENCOUNTER 2022-04-11 07:19 | Day surgery (SDC) | payer MEDICARE, MEDICAID, SELFPAY ==
[2021-09-25 16:05] VITALS: BP 154/81; BMI 45.6
[2022-04-10 13:05] VITALS: BMI 45.1
[2022-04-11 07:33] VITALS: BP 138/65; PULSE 75; RESP 16; TEMP 36.2; O2SAT 96
[2022-04-11 07:59] LABS: Glucose Point of Care 114 mg/dL (70-110)
[2022-04-11] MEDS: sodium chloride 0.9% 1,000 ML 30 ML IV (08:07)
--- NOTE | 2022-04-11 08:32 | P.ANESASSM_ITS ---
Pre-Anesthetic Assessment Height/Weight: Height 1.63 m Weight 119.295 kg Temp Pulse Resp BP Pulse Ox O2 Del Method 97.2 F L 75 16 138/65 96 04/11/22 07:33 04/11/22 07:33 04/11/22 07:33 04/11/22 07:33 04/11/22 07:33 04/11/22 07:41 Preop Diagnosis: Carpal tunnel syndrome right Operation Date: 04/11/22 09:05 Proposed Procedures p right carpal tunnel release/ 27450,G56.01(Right) - Fletcher Becker MD Familial anesthetic complications: none Was Beta Sandeep taken within 24 hours: N/A Was Clonidine taken within 24 hours: N/A Last intake: Intake Last Liquid Date 04/10/22 Last Liquid Time 19:30 Last Solid Date 04/10/22 Last Solid Time 19:30 Social No alcohol and No tobacco Uses medical marijuana Exam alert, oriented x 3, clear to auscultation bilaterally and regular rate & rhythm Airway Submandibular: within normal limits Cervical ROM: within normal limits Mallampati: Class II Comments: Comments: Broken molar Pulmonary Sleep Apnea (Uses CPAP ) CV/HEM Hypertension METS = 4 AUB Hepatic None reported GI Gastroesophageal Reflux Disease (Well controlled ) Hx of GI bleeds d/t NSAIDs Metabolic Diabetes Mellitus, Morbid Obesity and Thyroid Disease Musc/skel Lower Back Pain and Osteoarthritis/DJD Neuropsych Anxiety, Depression and Neuropathy Personality disorder Anesthetic Plan ASA status: 3 Anesthesia: Anesthesia Evaluation and General Other: We discussed risk and benefits of general anesthesia including PONV, sore throat (sometimes severe), corneal abrasion, positioning and peripheral nerve injuries, life threatening allergic reaction, post operative ICU admission requiring prolonged intubation, aspiration, stroke, heart attack, , and rare incidences of recall. Patient consents to proceed with general anesthesia. Risk of > 500 ml blood loss (7ml/kg in children): No Medications/Allergies Home Medications Medication Instructions Recorded Confirmed Last Taken Type glimepiride 4 mg tablet (Amaryl) 4 mg PO BID #180 tabs 11/11/19 04/10/22 01/20/20 Rx fenofibrate micronized 200 mg 200 mg PO DAILY 01/19/20 04/10/22 01/20/20 History capsule mecobalamin (vitamin B12) 1,000 1,000 mcg PO DAILY 02/29/20 04/10/22 Unknown History mcg chewable tablet pregabalin 100 mg capsule (Lyrica) 100 mg PO BID 04/07/20 04/10/22 Unknown History prenat.vits,bud,dgc-udek-ahsui 1 tab PO DAILY 04/14/20 04/10/22 Unknown History liraglutide 0.6 mg/0.1 mL (18 mg/3 1.8 mg SUBCUT Q24H 06/22/20 04/10/22 Unknown History mL) subcutaneous pen injector (Victoza 2-Kolby) ropinirole 4 mg tablet 4 mg PO TID 06/22/20 04/11/22 04/11/22 06:00 History furosemide 20 mg tablet (Lasix) 20 mg PO QAM PRN Edema 08/14/20 04/10/22 Unknown History diabetic shoes with molded inserts #1 ea 08/15/20 03/27/22 Unknown Rx methocarbamol 500 mg tablet 2,000 mg PO QID PRN Spasms 09/21/20 04/10/22 Unknown History dapagliflozin 10 mg tablet 10 mg PO DAILY #90 tabs 09/27/20 04/10/22 Unknown Rx (Farxiga) levothyroxine 25 mcg capsule 25 mcg PO .COMPLEX 90 days #210 05/08/21 04/11/22 0 04/11/22 06:00 Rx caps icosapent ethyl 1 gram capsule 2 g PO BID #360 caps 09/13/21 04/10/22 Unknown Rx (Vascepa) lisinopril 2.5 mg tablet 2.5 mg PO DAILY 09/13/21 04/10/22 Unknown History amitriptyline 100 mg tablet 100 mg PO .HS 30 days #30 tabs 10/29/21 04/10/22 Unknown Rx duloxetine 30 mg capsule,delayed 30 mg PO QAM 30 days #30 caps 10/29/21 04/10/22 Unknown Rx release paroxetine HCl 30 mg tablet 60 mg PO DAILY 30 days #60 tabs 10/29/21 04/10/22 Unknown Rx trazodone 100 mg tablet 100 mg PO .qhs 30 days #30 tabs 10/29/21 04/10/22 Unknown Rx insulin glargine 100 unit/mL (3 75 - 80 unit (0.75 - 0.8 mL) 12/14/21 04/10/22 Unknown Rx mL) subcutaneous pen (Lantus SUBCUT DAILY #75 mL Solostar U-100 Insulin) dicyclomine 10 mg capsule 10 mg PO QID 01/04/22 04/10/22 Unknown History oxybutynin chloride 5 mg tablet 5 mg PO BID 01/04/22 04/10/22 Unknown History pantoprazole 40 mg tablet,delayed 40 mg PO BID #180 tabs 01/23/22 04/10/22 Unknown Rx release (Protonix) Diabetic Shoes with 3 pairs of #1 ea 02/20/22 03/27/22 Unknown Rx inserts Allergies Allergy/AdvReac Type Severity Reaction Status Date / Time No Known Allergies Allergy Verified 04/10/22 12:58 Current Medications Generic Name Dose Route Start Last Admin Trade Name Freq PRN Reason Stop Dose Admin Sodium Chloride 1,000 mls @ 30 mls/hr 04/11/22 07:30 04/11/22 08:07 Sodium Chloride 0.9% IV 04/12/22 07:29 30 mls/hr .Q24H MISSY Administration PFSH Anesthesia Medical History Chronic post-traumatic stress disorder (PTSD) 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 Diabetes mellitus Generalized anxiety disorder GI bleed due to NSAIDs History of gallbladder disease Intervertebral disc disorder with radiculopathy of lumbosacral region Major depressive disorder, recurrent episode with mood-congruent psychotic features MDD (major depressive disorder) Obstructive sleep apnea Post-menopausal bleeding secondary amenorrhea not post menopausal bleeding Problems related to lack of adequate sleep Problems related to lack of adequate sleep Psychiatric care Surgical History Carpal tunnel syndrome on right 2009 S/P cholecystectomy 2001 S/P insertion of spinal cord stimulator Family History Mother Heart disease Stroke Diabetes Brother Diabetes Grandmother Stroke maternal Social History Smoking and tobacco status: current some day smoker Alcohol intake: never Female Reproductive History Date of last menstrual period: 01/22/20 Data Anesthesia : 04/11/22 08:04 Cardiac Studies: Echocardiogram Ultrasound 02/20/21
[2022-04-11 09:06] LABS: Blood Urea Nitrogen 14 mg/dL (6-20); Carbon Dioxide 24 mmol/L (22-29); Chloride 102 mmol/L (98-107); Creatinine Clr Calc Pharmacy 178.7496; Glomerular Filtration Rate 132.8 mL/min (90-130); Glucose 117 mg/dL (65-115); Osmolality Calculated 284 mOsm/kg (285-295); Sodium 136 mmol/L (136-145)
[2022-04-11 09:24] LABS: Anion Gap 14.7 (5-19); Potassium 4.7 mmol/L (3.5-5.1)
--- NOTE | 2022-04-11 09:54 | W.PM.OPSUD ---
Surgery/Procedure H&P Update DATE OF PROCEDURE: April 11, 2022 DATE H&P PERFORMED: 03/26/22 H&P UPDATE INFORMATION: I have reviewed H&P completed within last 30 days PREOP DIAGNOSIS: Carpal tunnel syndrome right PLANNED PROCEDURE: Operation Date: 04/11/22 09:05 Proposed Procedures p right carpal tunnel release/ 56112,G56.01(Right) - Fletcher Becker MD
[2022-04-11] MEDS: ceFAZolin 2,000 MG in sodium chloride 0.9% (plus) 50 ML 100 MG IV (10:00)
--- NOTE | 2022-04-11 10:46 | PM.OP ---
Operative Report Date of procedure: April 11, 2022 Pre-op diagnosis: Preop Diagnosis Carpal tunnel syndrome right Post-op diagnosis: same Post-op diagnosis: Same Procedure done: Right carpal tunnel release Pathology: none sent Surgeon: Fletcher Becker Anesthesia: Nerve Block (Jone block) Estimated blood loss (mL): 2 Tourniquet time (min): 28 Findings: No masses or space-occupying lesion seen in the right carpal tunnel Condition: stable Disposition: PACU Procedure: Patient was taken to the operating room and anesthesia provided by the anesthesia service. She was prepped and draped with the arm exposed. A timeout was performed. A 3 cm long incision was made in line with the fourth ray from the distal edge of the carpal tunnel extending proximally. The subcutaneous fat and palmar fascia was divided with a scalpel blade. Under loupe magnification the ulnar neurovascular bundle was identified distally. A hemostat could be passed under the transverse carpal ligament allowing the distal 25% to be divided. A slotted guide was then passed beneath the transverse carpal ligament and the middle 50% divided. Blunt scissors were then passed over the guide freeing the proximal ligament. The tourniquet was deflated. Hemostasis provided with electrocautery. Wound edges were infiltrated with 10 cc of a half percent Marcaine solution. Skin edges were reapproximated with 3-0 Prolene. Sterile dressings were applied. The patient was taken to the recovery room in stable condition
[2022-04-11 10:51] VITALS: BP 156/75; PULSE 81; RESP 22; O2SAT 94
[2022-04-11 10:55] VITALS: BP 156/73; PULSE 77; RESP 22; O2SAT 93
[2022-04-11 11:00] VITALS: BP 154/72; PULSE 74; RESP 18; TEMP 36.5; O2SAT 97
[2022-04-11 11:13] VITALS: BP 109/52; PULSE 71; RESP 16; TEMP 36.1; O2SAT 95
[2022-04-11 11:19] LABS: Glucose Point of Care 92 mg/dL (70-110)
[2022-04-11 11:26] VITALS: BP 132/66; PULSE 72; RESP 16; O2SAT 97
--- NOTE | 2022-04-11 11:29 | SUR.PHASEI ---
1050 PT TO PACU 5 PT AWAKE ALERT TALKATIVE MONITOR SR NO ECTOPY RT HAND WITH SOFT DRESSING , DISTAL FINGERS PINK WARM WITH CAP REFILL LESS THAN 3 SECONDS, ELEVATED HAND ON 3 BLANKETS HOB AT 45 DEGREES, IV PATENT OF NS AT KVO RATE PER GRAVITY, VSS PT VERBALLY DENIES PAIN AND NAUSEA AND COLD. GOOD RESP NOTED PT COUGHS TO COMMAND, REQUESTS ICE CHIPS.
--- NOTE | 2022-04-11 11:31 | SUR.PHASEI ---
1103 PT AWAKE ALERT TO OPS PER CART PT UP AT BEDSIDE , HANDOFF TO ROBERT SUAREZ. DRESSING D/I DISTAL FINGERS UNCHANGED.
--- NOTE | 2022-04-11 11:33 | SUR.PHASEI ---
1107 PT GLUCOSE LEVEL CHECKED AT 92 PT UP AND DRINKING APPLE JUICE, RN ROBERT SAHU.
--- NOTE | 2022-04-11 11:41 | ANE.PACU2 ---
Inpatient post-anesthesia follow up: Airway intact: Yes Vital signs: Temperature 97.0 F Pulse Rate 72 Respiratory Rate 16 Blood Pressure 132/66 Pulse Oximetry 97 Oxygen Delivery Me thod Room Air Oxygen Flow Rate Fraction of Inspir ed Oxygen Hydration adequate: Yes Nausea and vomiting: No Pain level: 1 Mental status: Baseline
== END 2022-04-11 11:41 | disposition home or self-care (01) ==
PROVIDERS: Anesthesiology; PCP Nurse Practitioner Family; Visit Provider Orthopaedic Surgery
PROC: (CPT 64721; principal; 2022-04-11 09:05)
DX: G56.01 Carpal tunnel syndrome, right upper limb (principal); I10 Essential (primary) hypertension; K21.9 Gastro-esophageal reflux disease without esophagitis; E66.01 Morbid (severe) obesity due to excess calories; Z68.42 Body mass index [BMI] 45.0-49.9, adult; E11.40 Type 2 diabetes mellitus with diabetic neuropathy, unspecified; F41.9 Anxiety disorder, unspecified; F32.A Depression, unspecified; Z79.4 Long term (current) use of insulin; G47.33 Obstructive sleep apnea (adult) (pediatric); F17.210 Nicotine dependence, cigarettes, uncomplicated
CPT/HCPCS: 64721; 36416; 80048; 82962; J2250; J2704; J3010; J3490; J7030

== ENCOUNTER → 2022-04-16 10:28 | Outpatient (BNVA) | payer MEDICARE, MEDICAID, SELFPAY ==
[2021-09-25 16:05] VITALS: BP 154/81; BMI 45.6
== END ==
PROVIDERS: PCP Nurse Practitioner Family; Visit Provider Nurse Practitioner Family
DX: Z98.890 Other specified postprocedural states (principal)
CPT/HCPCS: 99024

== ENCOUNTER → 2022-04-17 11:06 | Outpatient (BNVA) | payer MEDICARE, MEDICAID, SELFPAY ==
[2021-09-25 16:05] VITALS: BP 154/81; BMI 45.6
== END ==
PROVIDERS: PCP Nurse Practitioner Family; Visit Provider Surgery
DX: D17.9 Benign lipomatous neoplasm, unspecified (principal); R22.32 Localized swelling, mass and lump, left upper limb
CPT/HCPCS: 99203

== ENCOUNTER → 2022-04-23 10:51 | Outpatient (BNVA) | payer MEDICARE, MEDICAID, SELFPAY ==
[2021-09-25 16:05] VITALS: BP 154/81; BMI 45.6
== END ==
PROVIDERS: PCP Nurse Practitioner Family; Visit Provider Nurse Practitioner Family
DX: Z98.890 Other specified postprocedural states (principal)
CPT/HCPCS: 99024

== ENCOUNTER 2022-04-30 05:44 | Day surgery (SDC) | payer MEDICARE, MEDICAID, SELFPAY ==
[2021-09-25 16:05] VITALS: BP 154/81; BMI 45.6
[2022-04-29 12:15] VITALS: BMI 46.5
[2022-04-30] VITALS (10 sets, daily range): BP systolic 119–162; BP diastolic 54–81; PULSE 79–100; RESP 16–26; TEMP 36.3–37.1; O2SAT 90–98
--- NOTE | 2022-04-30 06:04 | W.PM.OPSUD ---
Surgery/Procedure H&P Update DATE OF PROCEDURE: April 30, 2022 DATE H&P PERFORMED: 04/17/22 H&P UPDATE INFORMATION: I have reviewed H&P completed within last 30 days, I have examined patient prior to procedure and No changes to prior documentation PREOP DIAGNOSIS: Left arm mass PRIMARY INDICATION FOR PROCEDURE: The same PLANNED PROCEDURE: Operation Date: 04/30/22 07:00 Proposed Procedures p excision of left arm mass 74061 D17.9(Left) - Franko Zendejas MD
--- NOTE | 2022-04-30 06:33 | ANES.PREANE2 ---
Pre-Anesthetic Assessment Height/Weight: Height 1.63 m Weight 117.934 kg Preop Diagnosis: Left arm mass Operation Date: 04/30/22 07:00 Proposed Procedures p excision of left arm mass 32335 D17.9(Left) - Franko Zendejas MD Familial anesthetic complications: None Was Beta Sandeep taken within 24 hours: N/A Was Clonidine taken within 24 hours: N/A Last intake: 04/29/22 Social No alcohol and No tobacco Exam alert, oriented x 3, clear to auscultation bilaterally and regular rate & rhythm Airway Submandibular: within normal limits Cervical ROM: within normal limits Mallampati: Class II Dentition: chipped Pulmonary Sleep Apnea CV/HEM Hypertension Unable to go up stairs d/t pain AUB Hepatic None reported GI Gastroesophageal Reflux Disease (Reports bile on laying flat otherwise well controlled ) Metabolic Diabetes Mellitus, Morbid Obesity and Thyroid Disease Musc/skel Lower Back Pain and Osteoarthritis/DJD Neuropsych Anxiety, Depression and Neuropathy Anesthetic Plan ASA status: 3 Anesthesia: Anesthesia Evaluation and General Other: We discussed risk and benefits of general anesthesia including PONV, sore throat (sometimes severe), corneal abrasion, positioning and peripheral nerve injuries, life threatening allergic reaction, post operative ICU admission requiring prolonged intubation, aspiration, stroke, heart attack, , and rare incidences of recall. Patient consents to proceed with general anesthesia. Risk of > 500 ml blood loss (7ml/kg in children): No Medications/Allergies Home Medications Medication Instructions Recorded Confirmed Last Taken Type glimepiride 4 mg tablet (Amaryl) 4 mg PO BID #180 tabs 11/11/19 04/30/22 04/29/22 Rx fenofibrate micronized 200 mg 200 mg PO DAILY 01/19/20 04/30/22 04/29/22 History capsule mecobalamin (vitamin B12) 1,000 1,000 mcg PO DAILY 02/29/20 04/30/22 04/29/22 History mcg chewable tablet prenat.vits,bud,yzv-piez-kmtgk 1 tab PO DAILY 04/14/20 04/30/22 04/29/22 History liraglutide 0.6 mg/0.1 mL (18 mg/3 1.8 mg SUBCUT Q24H 06/22/20 04/30/22 04/28/22 History mL) subcutaneous pen injector (Victoza 2-Kolby) ropinirole 4 mg tablet 4 mg PO TID 06/22/20 04/30/22 04/30/22 History furosemide 20 mg tablet (Lasix) 20 mg PO QAM PRN Edema 08/14/20 04/30/22 04/28/22 History diabetic shoes with molded inserts #1 ea 08/15/20 04/23/22 Unknown Rx methocarbamol 500 mg tablet 2,000 mg PO QID PRN Spasms 09/21/20 04/30/22 04/29/22 History dapagliflozin 10 mg tablet 10 mg PO DAILY #90 tabs 09/27/20 04/30/22 04/29/22 Rx (Farxiga) lisinopril 2.5 mg tablet 2.5 mg PO DAILY 09/13/21 04/30/22 04/29/22 History amitriptyline 100 mg tablet 100 mg PO .HS 30 days #30 tabs 10/29/21 04/30/22 04/29/22 Rx insulin glargine 100 unit/mL (3 75 - 80 unit (0.75 - 0.8 mL) 12/14/21 04/30/22 04/29/22 Rx mL) subcutaneous pen (Lantus SUBCUT DAILY #75 mL Solostar U-100 Insulin) dicyclomine 10 mg capsule 10 mg PO QID 01/04/22 04/30/22 04/29/22 History oxybutynin chloride 5 mg tablet 5 mg PO BID 01/04/22 04/30/22 04/29/22 History pantoprazole 40 mg tablet,delayed 40 mg PO BID #180 tabs 01/23/22 04/30/22 04/30/22 Rx release (Protonix) Diabetic Shoes with 3 pairs of #1 ea 02/20/22 04/23/22 Unknown Rx inserts medical marijuana 1 applicator as directed DAILY 04/17/22 04/30/22 04/29/22 History pregabalin 100 mg capsule (Lyrica) 100 mg PO TID 04/17/22 04/30/22 04/29/22 History duloxetine 30 mg capsule,delayed 30 mg PO QAM 30 days #30 caps 04/23/22 04/30/22 04/29/22 Rx release trazodone 100 mg tablet 100 mg PO .qhs 30 days #30 tabs 04/23/22 04/30/22 04/29/22 Rx levothyroxine 25 mcg tablet 25 mcg PO DIRECTED 04/29/22 04/30/22 04/29/22 History paroxetine HCl 30 mg tablet (Paxil) 60 mg PO DAILY 04/29/22 04/30/22 04/29/22 History Allergies Allergy/AdvReac Type Severity Reaction Status Date / Time No Known Allergies Allergy Verified 04/19/22 13:31 [facility] Anesthesia Medical History Chronic post-traumatic stress disorder (PTSD) 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 Diabetes mellitus Generalized anxiety disorder GI bleed due to NSAIDs History of gallbladder disease Intervertebral disc disorder with radiculopathy of lumbosacral region Major depressive disorder, recurrent episode with mood-congruent psychotic features MDD (major depressive disorder) Obstructive sleep apnea Post-menopausal bleeding secondary amenorrhea not post menopausal bleeding Problems related to lack of adequate sleep Problems related to lack of adequate sleep Psychiatric care Surgical History Carpal tunnel syndrome on right 2009 S/P cholecystectomy 2001 S/P insertion of spinal cord stimulator Family History Mother Heart disease Stroke Diabetes Brother Diabetes Grandmother Stroke maternal Social History Smoking and tobacco status: former smoker Alcohol intake: never Female Reproductive History Date of last menstrual period: 01/22/20 Data Anesthesia Cardiac Studies: Echocardiogram Ultrasound 02/20/21
[2022-04-30] MEDS: sodium chloride 0.9% 1,000 ML 30 ML IV (06:38)
[2022-04-30 06:39] LABS: Glucose Point of Care 86 mg/dL (70-110)
[2022-04-30] MEDS: ceFAZolin 2,000 MG in sodium chloride 0.9% (plus) 50 ML 100 MG IV (06:56)
[2022-04-30] MEDS: lidocaine 2% INJ 20 mL INJECTION (07:15)
--- NOTE | 2022-04-30 08:01 | PM.OP ---
Operative Report Date of procedure: April 30, 2022 Pre-op diagnosis: Preop Diagnosis Left arm mass Post-op diagnosis: other (Left arm subcutaneous and intramuscular lipomas) Procedure done: Excision of left arm lipomas Specimens removed/disposition: Subcutaneous lipoma 3 x 2 cm Intramuscular lipoma 5 x 3 cm Surgeon: Franko Zendejas MD Set Up / Operator: Palmira Vick Circulating nurse Princess Anesthesia: General (service unit operator Jeri) Estimated blood loss (mL): 5 IV fluids (mL): 700 Procedure: After identifying the patient holding area, the left arm was marked before the procedure by myself, patient was then taken to the operative suite, was placed in supine position, endotracheal tube was placed by the anesthesia provider, prophylactic IV antibiotics were given per protocol, left arm was placed in 90? to her body, prep and drape of the left upper extremity region was done under the usual sterile technique. Time-out was done verifying the patient's name/date of /planned procedure and destination after the procedure, all were in agreement. After palpation of the left arm mass and, I did an longitudinal incision on top of the mass corresponding to the skin crease increase with appropriate , dissection was carried after the skin incision all the way to the subcutaneous tissues, subcutaneous lipoma 3 x 2 cm where it was dissected and sent for permanent pathology, following that there was evidence of intramuscular lipoma measures about 5 x 3 cm that was also dissected and the traversing vein was divided and ligated using 2-0 silk sutures. Thorough irrigation of the cavity was done and hemostasis, followed by placement of 10 Tajik Omer-Stephens drain that was secured to the skin via a caudad separate stab using 2-0 nylon. Followed by deep sub dermal closure by 3-0 Vicryl, then 4-0 Monocryl for skin closure Lidocaine 2% was injected at the site of the incision that prior to the injection aspiration was done to make sure no injection is going into any vessel, followed by Dermabond dry dressing and Andres wrap. Patient tolerated the procedure well, count of instruments, needles and sponges were completed at the end of the procedure. And then patient was taken to the recovery area in stable condition. I Was present for the whole entire procedure
--- NOTE | 2022-04-30 08:31 | SUR.PHASEI ---
0812 PT TO PACU SLEEPY BUT AWAKES TO VOICE, GOOD RESP EFFORT, PT SNORING, PILLOW REMOVED , MONITOR SR NO ECTOPY, IV TO RT HAND #20 PATENT WITH 250ML NS AT KVO RATE PER GRAVITY, ID BRACELET TO LT WRIST PT ID'D WITH 2 IDENTIFERS, ,BILAT SCDS ON. LT UPPER ARM DRESSING D/I WITH DRAIN COMPRESSED AND SMALL AMT RED DRAINAGE NOTED TO BULB.
[2022-04-30 08:41] LABS: Glucose Point of Care 118 mg/dL (70-110)
[2022-04-30 08:42] LABS: OR HCG Qualitative Urine Negative (Negative)
--- NOTE | 2022-04-30 14:51 | ANE.PACU2 ---
Inpatient post-anesthesia follow up: Airway intact: Yes Vital signs: Temperature 98.6 F Pulse Rate 83 Respiratory Rate 18 Blood Pressure 134/55 Pulse Oximetry 91 Oxygen Delivery Me thod RA Oxygen Flow Rate Fraction of Inspir ed Oxygen Hydration adequate: Yes Nausea and vomiting: No Pain level: 1 Mental status: Baseline
== END 2022-04-30 09:30 | disposition home or self-care (01) ==
PROVIDERS: Anesthesiology; PCP Nurse Practitioner Family; Visit Provider Surgery
PROC: (CPT 24076; principal; 2022-04-30 07:00)
DX: D17.22 Benign lipomatous neoplasm of skin and subcutaneous tissue of left arm (principal); E11.9 Type 2 diabetes mellitus without complications; G47.33 Obstructive sleep apnea (adult) (pediatric); E66.01 Morbid (severe) obesity due to excess calories; Z68.42 Body mass index [BMI] 45.0-49.9, adult; Z79.84 Long term (current) use of oral hypoglycemic drugs
CPT/HCPCS: 24076; 36416; 81025; 82962; 84703; 88304; J0330; J2250; J2370; J2405; J2704; J3010; J7030

== ENCOUNTER → 2022-05-01 15:01 | Outpatient (BNVA) | payer MEDICARE, MEDICAID, SELFPAY ==
[2021-09-25 16:05] VITALS: BP 154/81; BMI 45.6
== END ==
PROVIDERS: PCP Nurse Practitioner Family; Visit Provider Surgery
DX: Z98.890 Other specified postprocedural states (principal); R22.32 Localized swelling, mass and lump, left upper limb; M79.89 Other specified soft tissue disorders
CPT/HCPCS: 99024

== ENCOUNTER → 2022-05-08 15:27 | Outpatient (BNVA) | payer MEDICARE, MEDICAID, OTHER, SELFPAY ==
[2021-09-25 16:05] VITALS: BP 154/81; BMI 45.6
== END ==
PROVIDERS: PCP Nurse Practitioner Family; Visit Provider Surgery
DX: Z98.890 Other specified postprocedural states (principal)
CPT/HCPCS: 99024

== ENCOUNTER → 2022-05-22 09:37 | Outpatient (BNVA) | payer MEDICARE, MEDICAID, SELFPAY ==
[2021-09-25 16:05] VITALS: BP 154/81; BMI 45.6
== END ==
PROVIDERS: PCP Nurse Practitioner Family; Visit Provider Nurse Practitioner Family
DX: G56.01 Carpal tunnel syndrome, right upper limb (principal)
CPT/HCPCS: 99213

== ENCOUNTER → 2022-05-29 13:26 | Outpatient (BNVA) | payer MEDICARE, MEDICAID, OTHER, SELFPAY ==
[2021-09-25 16:05] VITALS: BP 154/81; BMI 45.6
== END ==
PROVIDERS: PCP Nurse Practitioner Family; Visit Provider Surgery
DX: Z98.890 Other specified postprocedural states (principal)
CPT/HCPCS: 99024

== ENCOUNTER → 2022-06-13 15:16 | Outpatient (BNVA) | payer MEDICAID, MEDICARE, OTHER, SELFPAY ==
[2021-09-25 16:05] VITALS: BP 154/81; BMI 45.6
== END ==
PROVIDERS: PCP Nurse Practitioner Family; Visit Provider Surgery
DX: Z09 Encounter for follow-up examination after completed treatment for conditions other than malignant neoplasm (principal)
CPT/HCPCS: 99024

== ENCOUNTER 2022-07-02 13:33 | Outpatient (CLI) | payer MEDICARE, MEDICAID, SELFPAY ==
[2021-09-25 16:05] VITALS: BP 154/81; BMI 45.6
--- NOTE | 2022-07-02 13:46 | MM_ITS ---
WS: [id number] BILATERAL 3D TOMOSYNTHESIS DIGITAL SCREENING MAMMOGRAPHY WITH CAD CLINICAL INFORMATION: SCREENING HISTORY: Screening mammogram. No current complaints. COMPARISON: July 25, 2020 TECHNIQUE: Bilateral CC and MLO views. FINDINGS: Scattered fibroglandular densities bilaterally. No suspicious focal mass, asymmetry, calcifications, or architectural distortion. No evidence of malignancy. MM/[place] [id number] IMPRESSION: BI-RADS: 1-Negative FOLLOW UP: 1 Year Follow-up Recommend return to annual screening mammography.
== END 2022-07-02 13:34 | disposition home or self-care (01) ==
PROVIDERS: PCP Nurse Practitioner Family; Visit Provider Nurse Practitioner Family
DX: Z12.31 Encounter for screening mammogram for malignant neoplasm of breast (principal)
CPT/HCPCS: 77063; 77067

== ENCOUNTER 2022-07-29 11:16 | Outpatient (CLI) | payer MEDICARE, MEDICAID, SELFPAY ==
[2021-09-25 16:05] VITALS: BP 154/81; BMI 45.6
--- NOTE | 2022-07-29 11:27 | MR_ITS ---
WS: [id number] MRI RIGHT SHOULDER HISTORY: SHOULDER PAIN COMPARISON: None available. TECHNIQUE: Multiplanar sequences of the shoulder joint are submitted. Mild AC joint narrowing. Small hypertrophic osteophytes with a small amount of increased T2 signal al patrick the AC ligament. Small amount of fluid in the subacromial and subdeltoid bursa. There is encroach ment by osteophytes upon the supraspinatus. No significant subacromial impingement. No os acromion. B iceps tendon is not in the bicipital groove. Biceps tendon is torn and retracted along the medial hum eral head. Tendinopathy in the distal supraspinatus tendon. No tear is identified. Significant atrophy of the blank bscapularis muscle. Complete tear of the subscapularis tendon with retraction. Tendon is retracted te ndon to the glenohumeral joint. Middle glenohumeral ligament is also not identified. Mild narrowing of the glenohumeral joint. There is a small joint effusion surrounding the humeral hea d extending into the axillary pouch. Small amount of marrow edema along the posterior superior jesi l head. No definite labral tear. MR/MR shoulder RT wo con* [id number] IMPRESSION: 1. Complete subscapularis tendon tear with retraction. 2. Biceps tendon complete tear with retraction. 3. Moderate AC joint arthritis with mild sprain. 4. AC joint encroachment upon the supraspinatus. 5. Moderate atrophy supraspinatus tendon. 6. Small joint effusion.
== END 2022-07-29 11:17 | disposition home or self-care (01) ==
LOC: RAD 11:17
PROVIDERS: PCP Nurse Practitioner Family; Visit Provider Nurse Practitioner Family
DX: S46.811A Strain of other muscles, fascia and tendons at shoulder and upper arm level, right arm, initial encounter (principal); S46.211A Strain of muscle, fascia and tendon of other parts of biceps, right arm, initial encounter; X58.XXXA Exposure to other specified factors, initial encounter; M25.411 Effusion, right shoulder; M13.811 Other specified arthritis, right shoulder
CPT/HCPCS: 73221

== ENCOUNTER → 2022-07-30 08:23 | Outpatient (BNVA) | payer MEDICARE, MEDICAID, SELFPAY ==
[2021-09-25 16:05] VITALS: BP 154/81; BMI 45.6
== END ==
PROVIDERS: PCP Nurse Practitioner Family; Visit Provider Podiatrist Foot & Ankle Surgery
DX: E11.9 Type 2 diabetes mellitus without complications (principal); L60.3 Nail dystrophy; L84 Corns and callosities; M21.41 Flat foot [pes planus] (acquired), right foot; Z79.4 Long term (current) use of insulin; M21.42 Flat foot [pes planus] (acquired), left foot
CPT/HCPCS: 11055; 11721

== ENCOUNTER 2022-07-31 15:08 | Outpatient (CLI) | payer MEDICARE, MEDICAID, SELFPAY ==
[2021-09-25 16:05] VITALS: BP 154/81; BMI 45.6
--- NOTE | 2022-07-31 15:18 | USCV_ITS ---
Tamara Hernandez Age: 46 Gender: F : 1975 Exam Date: 07/31/2022 15:44 Ordering Phys: Antonella Chairez LADLE WATCHER Technologist: CT Exam Location: [facility] [place] Indication: stenosis Risk Factors: Previous Vascular Surgery: Right Brachial BP: / Left Brachial BP: / Right Left Velocity (cm/s) Spectral Plaque Velocity (cm/s) Spectral Plaque Syst/Diast Broadening Syst/Diast Broadening 136.90/24.75 Prox CCA 135.40/ 21.50 127.35/23.90 Mid CCA 133.80/ 24.80 127.25/27.60 Distal CCA 123.90/ 30.60 97.30/ 22.65 Prox ICA 98.20 / 23.50 95.55/ 23.10 Mid ICA 87.70 / 13.70 97.20/ 25.80 Distal ICA 67.00 / 22.70 157.50 ECA 134.10 0.62 ICA/CCA 0.73 Antegrade Vertebral Antegrade 68.55/ 11.50 cm/s 89.90/ 17.10 cm/s Tri Subclavian Tri 150.5 152.6 5 0 FINDINGS no stenosis identified CONCLUSIONS Right ICA stenosis <50%. Left ICA stenosis <50%. Normal antegrade Doppler flow noted in the right vertebral artery. Normal antegrade Doppler flow noted in the left vertebral artery. Sigifredo Paredes MD (Electronically Signed) Final Date: 31 July 2022 17:17 S
== END 2022-07-31 15:09 | disposition home or self-care (01) ==
LOC: RAD 15:12
PROVIDERS: PCP Nurse Practitioner Family; Visit Provider Nurse Practitioner Family
DX: R09.89 Other specified symptoms and signs involving the circulatory and respiratory systems (principal); I65.23 Occlusion and stenosis of bilateral carotid arteries
CPT/HCPCS: 93880

== ENCOUNTER → 2022-08-06 14:05 | Outpatient (BNVA) | payer MEDICARE, MEDICAID, SELFPAY ==
[2021-09-25 16:05] VITALS: BP 154/81; BMI 45.6
== END ==
PROVIDERS: PCP Nurse Practitioner Family; Visit Provider Orthopaedic Surgery
DX: M75.101 Unspecified rotator cuff tear or rupture of right shoulder, not specified as traumatic
CPT/HCPCS: 99213

== ENCOUNTER 2022-08-29 05:44 | Day surgery (SDC) | payer MEDICARE, MEDICAID, SELFPAY ==
[2021-09-25 16:05] VITALS: BP 154/81; BMI 45.6
[2022-08-29] VITALS (11 sets, daily range): BP systolic 147–176; BP diastolic 42–83; PULSE 72–101; RESP 16–19; TEMP 36.2–37.6; O2SAT 92–98
[2022-08-29] MEDS: acetaminophen 500 mg Tablet 1000 MG PO (06:28)
[2022-08-29] MEDS: sodium chloride 0.9% 1,000 ML 30 ML IV (06:29)
--- NOTE | 2022-08-29 06:34 | P.ANESASSM_ITS ---
Pre-Anesthetic Assessment Height/Weight: Height 1.63 m Weight 117.934 kg Temp Pulse Resp BP Pulse Ox O2 Del Method 97.2 F L 75 18 147/67 96 08/29/22 06:13 08/29/22 06:13 08/29/22 06:13 08/29/22 06:13 08/29/22 06:13 08/29/22 06:18 Preop Diagnosis: Left arm mass Operation Date: 08/29/22 07:00 Proposed Procedures p Shoulder Arthroscopy(Right) - Fletcher Becker MD s Bicep Tenodesis(Right) - Fletcher Becker MD Familial anesthetic complications: None Was Beta Sandeep taken within 24 hours: N/A Was Clonidine taken within 24 hours: N/A Last intake: Intake Last Liquid Date 08/28/22 Last Liquid Time 20:30 Last Solid Date 08/28/22 Last Solid Time 20:30 Social No alcohol and No tobacco Exam alert, oriented x 3, clear to auscultation bilaterally and regular rate & rhythm Airway Mallampati: Class II Dentition: chipped Pulmonary Sleep Apnea CV/HEM Hypertension GI Gastroesophageal Reflux Disease Metabolic Diabetes Mellitus, Hyperlipidemia, Morbid Obesity and Thyroid Disease Anesthetic Plan ASA status: 3 Anesthesia: General Risk of > 500 ml blood loss (7ml/kg in children): No Medications/Allergies Home Medications Medication Instructions Recorded Confirmed Last Taken Type glimepiride 4 mg tablet (Amaryl) 4 mg PO BID #180 tabs 11/11/19 08/28/22 08/28/22 Rx fenofibrate micronized 200 mg 200 mg PO DAILY 01/19/20 08/28/22 08/28/22 History capsule mecobalamin (vitamin B12) 1,000 1,000 mcg PO DAILY 02/29/20 08/28/22 08/28/22 History mcg chewable tablet prenat.vits,bud,doj-rdwl-ayacm 1 tab PO DAILY 04/14/20 08/28/22 08/27/22 History liraglutide 0.6 mg/0.1 mL (18 mg/3 1.8 mg SUBCUT Q24H 06/22/20 08/28/22 08/27/22 History mL) subcutaneous pen injector (Victoza 2-Kolby) ropinirole 4 mg tablet 4 mg PO TID 06/22/20 08/28/22 08/29/22 History furosemide 20 mg tablet (Lasix) 20 mg PO QAM PRN Edema 08/14/20 08/28/22 08/27/22 History methocarbamol 500 mg tablet 2,000 mg PO QID PRN Spasms 09/21/20 08/28/22 08/28/22 History dapagliflozin 10 mg tablet 10 mg PO DAILY #90 tabs 09/27/20 08/28/22 08/28/22 Rx (Farxiga) lisinopril 2.5 mg tablet 2.5 mg PO DAILY 09/13/21 08/28/22 08/28/22 History insulin glargine 100 unit/mL (3 75 - 80 unit (0.75 - 0.8 mL) 12/14/21 08/28/22 08/28/22 Rx mL) subcutaneous pen (Lantus SUBCUT DAILY #75 mL Solostar U-100 Insulin) dicyclomine 10 mg capsule 10 mg PO QID 01/04/22 08/28/22 08/29/22 History oxybutynin chloride 5 mg tablet 5 mg PO BID 01/04/22 08/28/22 08/29/22 History pantoprazole 40 mg tablet,delayed 40 mg PO BID #180 tabs 01/23/22 08/28/22 08/29/22 Rx release (Protonix) Diabetic Shoes with 3 pairs of #1 ea 02/20/22 08/06/22 Unknown Rx inserts medical marijuana 1 applicator as directed DAILY 04/17/22 08/06/22 08/28/22 History pregabalin 100 mg capsule (Lyrica) 100 mg PO TID 04/17/22 08/28/22 08/28/22 His tory levothyroxine 25 mcg tablet 25 mcg PO DIRECTED 04/29/22 08/28/22 08/29/22 History paroxetine HCl 30 mg tablet (Paxil) 60 mg PO DAILY 04/29/22 08/28/22 08/27/22 History amitriptyline 100 mg tablet 100 mg PO .HS 30 days #30 tabs 08/22/22 08/28/22 08/28/22 Rx duloxetine 60 mg capsule,delayed 60 mg PO QAM 30 days #30 caps 08/22/22 08/28/22 08/28/22 Rx release trazodone 100 mg tablet 100 mg PO .qhs 30 days #30 tabs 08/22/22 08/28/22 08/27/22 Rx fenofibrate micronized 200 mg 200 mg PO DAILY 08/29/22 08/29/22 08/27/22 History capsule Allergies Allergy/AdvReac Type Severity Reaction Status Date / Time No Known Allergies Allergy Verified 08/28/22 13:41 [facility] Anesthesia Medical History Chronic post-traumatic stress disorder (PTSD) 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 Diabetes mellitus Generalized anxiety disorder GI bleed due to NSAIDs History of gallbladder disease Intervertebral disc disorder with radiculopathy of lumbosacral region Left upper extremity swelling Major depressive disorder, recurrent episode with mood-congruent psychotic features Mass of left upper extremity MDD (major depressive disorder) Obstructive sleep apnea Post-menopausal bleeding secondary amenorrhea not post menopausal bleeding Problems related to lack of adequate sleep Problems related to lack of adequate sleep Psychiatric care Surgical History Carpal tunnel syndrome on right 2010 S/P cholecystectomy 2001 S/P insertion of spinal cord stimulator Family History Mother Heart disease Stroke Diabetes Brother Diabetes Grandmother Stroke maternal Social History Smoking and tobacco status: former smoker Alcohol intake: never Female Reproductive History Date of last menstrual period: 01/22/20 Data Anesthesia Cardiac Studies: Echocardiogram Ultrasound 02/20/21
[2022-08-29 06:38] LABS: Glucose Point of Care 147 mg/dL (70-110)
[2022-08-29] MEDS: ondansetron 2 mg/ML SDV 2 mL 4 MG IVP (07:00)
--- NOTE | 2022-08-29 07:17 | W.PM.OPSUD ---
Surgery/Procedure H&P Update DATE OF PROCEDURE: August 29, 2022 DATE H&P PERFORMED: 08/06/22 H&P UPDATE INFORMATION: I have reviewed H&P completed within last 30 days PREOP DIAGNOSIS: Right shoulder open subscapularis repair, biceps tenodesis PLANNED PROCEDURE: Operation Date: 08/29/22 07:00 Proposed Procedures Open right subscapularis repair- Fletcher Becker MD s Bicep Tenodesis(Right) - Fletcher Becker MD
[2022-08-29 07:20] LABS: OR HCG Qualitative Urine Negative (Negative)
[2022-08-29] MEDS: ceFAZolin 2,000 MG in sodium chloride 0.9% (plus) 50 ML 100 MG IV (07:20)
--- NOTE | 2022-08-29 09:04 | P.OP_ITS ---
Operative Report Date of procedure: August 29, 2022 Pre-op diagnosis: Preop Diagnosis Right shoulder open subscapularis repair, biceps tenodesis Post-op diagnosis: same Procedure done: Open repair right subscapularis tendon, open right biceps tenodesis Implants: Boyd [employer] Nephew Helicoil 5.5 mm anchor x1, 4.5 mm anchor x3, Boyd [employer]hew Multifix 5.5 mm anchor x2 Pathology: none sent Anesthesia: General Estimated blood loss (mL): 50 Complications: None Findings: The patient had a large retracted tear of the subscapularis tendon involving the superior 80% with retraction to the level of the glenoid. The biceps tendon was dislocated medially. The tendon quality was good and the tendon graft had good mobility Condition: stable Disposition: PACU Brief History: The patient is a 47-year-old female who sustained a tear of her subscapularis w ith dislocation of her biceps in June with a fall. The tear was confirmed with MRI. She was taken to the OR for repair to improve pain and function Procedure: The patient was taken to the operating room and given 2 g of Ancef. She is prepped and draped in a beachchair position with her right shoulder exposed free. A timeout was performed. A 6 cm long incision was made over the deltopectoral interval beginning at the level of the coracoid extending distally. Dissection was carried down bluntly to the deltopectoral interval. The cephalic vein was identified and retracted medially. Conjoined tendon was identified and released laterally. The link shoulder retractor was passed beneath the coracoid and lateral deltoid bringing us exposure down to the shoulder. Bursal tissue was removed over the lesser tuberosity revealing the dislocated biceps. The inferior margins of the intact subscapularis were identified. Working distally to proximal the subscapularis was mobilized laterally and the free ends fixed with a braided suture. Manual dissection was accomplished on both the bursal and the articular aspect of the subscapularis removing any adhesions. At the conclusion of the release the subscapularis could be brought back to the lesser tuberosity. The biceps tendon was released from its insertion on the superior glenoid was found to be relatively scarred beneath the pectoralis major. The free and was controlled with a braided suture. Next a additional Boyd [employer] Nephew Helicoil 5.5 mm anchor was placed just medial to the lesser tuberosity superiorly. A suture was passed from the inferior surface through the superior subscapularis at a point approximately 8 mm from the distal edge and area of healthy tendon. And locked in place with a single Krak?w stitch. The free end of the suture was passed approximately 8 mm distally. A Boyd and Nephew Helicoil 4.4 mm anchor was placed inferiorly and locked in identical fashion. Sutures were secured drawing the subscapularis over to the medial edge of the lesser tuberosity. Next a single 4.5 mill motor helical anchor was placed just superior to the pectoralis major tendon in the bicipital groove. This was locked around the biceps and a luggage tag fashion. The free biceps tendon was then excised with the cautery. 2 multi fix anchors were placed in the medial bicipital groove. 1 suture from each of the medial row anchors was passed into the MultiFix anchor and secured drawing the lateral subscapularis down to bone. Shoulder was brought through gentle motion in the repair found to be stable. The wound was irrigated with saline. The deltopectoral interval was closed with interrupted 0 Vicryl. Subcutaneous tissues were closed with 2-0 Stratafix suture and the skin with a running 4-0 Stratafix. Sterile dressings were applied. The patient was placed in a sling. She was extubated and taken to the recovery room in stable condition.
[2022-08-29] MEDS: labetalol 5 mg/mL SDV 20mL 100 MG (09:39)
[2022-08-29] MEDS: HYDROmorphone 1 mg/mL INJ 1 mL 0.5 MG IVP (09:40)
--- NOTE | 2022-08-29 09:57 | ANES.PROC ---
Anesthesia Procedures Procedure/Date: 08/29/22 Nerve Block ^: Nerve Block 1: Main Anesthesia: general anesthesia Time Out Performed: Yes Consent: requested by attending/covering physician, from patient and patient agrees to proceed Nerve block location: interscalene (L) Anesthesia monitors applied: pulse oximetry, EKG, BP cuff and oxygen Nerve block position: semi sitting Anesthetic Used: ropivicaine 0.5% (20 ml) and with decadron (4 mg) Ultrasound used to: recognize landmarks, in supraclavicular region and visualize and ID interscalene groove Nerve Stimulator Used?: No Interscalene/Femoral BLK: 2 stimuplex 22 g needle used for position and inplane approach, visualize local anesthetic spread and no vascular puncture identified Patient Tolerated Procedure: well Complications: none
[2022-08-29 11:33] LABS: Glucose Point of Care 175 mg/dL (70-110)
[2022-08-29 11:53] LABS: Anion Gap 16.4 (5-19); Blood Urea Nitrogen 16 mg/dL (6-20); Calcium 9.5 mg/dL (8.5-10.5); Carbon Dioxide 28 mmol/L (22-29); Chloride 98 mmol/L (98-107); Glomerular Filtration Rate 107.2 mL/min (90-130); Glucose 117 mg/dL (65-115); Osmolality Calculated 288 mOsm/kg (285-295); Potassium 4.4 mmol/L (3.5-5.1); Sodium 138 mmol/L (136-145)
--- NOTE | 2022-08-29 16:49 | ANE.PACU2 ---
Inpatient post-anesthesia follow up: Airway intact: Yes Vital signs: Temperature 99.6 F Pulse Rate 77 Respiratory Rate 16 Blood Pressure 160/69 Pulse Oximetry 92 Oxygen Delivery Me thod Room Air Oxygen Flow Rate 6 Fraction of Inspir ed Oxygen Hydration adequate: Yes Nausea and vomiting: No Pain level: 1 Mental status: Baseline
== END 2022-08-29 11:40 | disposition home or self-care (01) ==
PROVIDERS: Anesthesiology; PCP Nurse Practitioner Family; Visit Provider Orthopaedic Surgery
PROC: (CPT 23430; 2022-08-29 07:00)
DX: S46.811A Strain of other muscles, fascia and tendons at shoulder and upper arm level, right arm, initial encounter (principal); X58.XXXA Exposure to other specified factors, initial encounter; M75.21 Bicipital tendinitis, right shoulder; G47.30 Sleep apnea, unspecified; I10 Essential (primary) hypertension; K21.9 Gastro-esophageal reflux disease without esophagitis; E11.9 Type 2 diabetes mellitus without complications; E78.5 Hyperlipidemia, unspecified; E66.01 Morbid (severe) obesity due to excess calories; Z68.41 Body mass index [BMI] 40.0-44.9, adult; Z79.4 Long term (current) use of insulin; Z87.891 Personal history of nicotine dependence
CPT/HCPCS: 29827; 29828; 36416; 80048; 81025; 82962; 84703; C1713; J0690; J1100; J1170; J1580; J2405; J2704; J2710; J2795; J3010; J3490; J7030

== ENCOUNTER → 2022-09-03 15:35 | Outpatient (BNVA) | payer MEDICAID, MEDICARE, SELFPAY ==
[2021-09-25 16:05] VITALS: BP 154/81; BMI 45.6
== END ==
PROVIDERS: PCP Nurse Practitioner Family; Visit Provider Orthopaedic Surgery
DX: M75.101 Unspecified rotator cuff tear or rupture of right shoulder, not specified as traumatic (principal)
CPT/HCPCS: 99024

== ENCOUNTER 2022-10-08 12:23 | Outpatient (CLI) | payer MEDICARE, MEDICAID, SELFPAY ==
[2021-09-25 16:05] VITALS: BP 154/81; BMI 45.6
--- NOTE | 2022-10-08 12:54 | XRR_ITS ---
PROCEDURE INFORMATION: Exam: XR Left Knee Exam date and time: 10/08/2022 1:14 PM Age: 47 years old Clinical indication: Pain; Knee; Bilateral; Additional info: Bilateral knee pain TECHNIQUE: Imaging protocol: Radiologic exam of the Left knee. Views: 1 or 2 views. COMPARISON: No relevant prior studies available. FINDINGS: Bones/joints: Mild loss of joint space height at lateral compartment. Small osteophytes at the patella femoral compartment in tibial spines. Moderate osteophytes at the lateral compartment. No acute fracture. No dislocation. Normal bone mineralization. Small left knee joint effusion. There is a fabella in the soft tissues posterior to the knee. Soft tissues: No soft tissue swelling. No radiopaque foreign body. XR/XR knee LT 1-2V [id number] IMPRESSION: 1. No acute fracture of the left knee. Followup imaging recommended in 7-14 days if clinical concern for fracture persists. 2. Small left knee joint effusion. 3. [id number] degenerative changes at the left knee.
--- NOTE | 2022-10-08 12:54 | XR_ITS ---
WS: [id number] XR knee RT 1-2V [id number] REASON FOR EXAM: BILATERAL KNEE PAIN FINDINGS: The joint spaces are intact and relatively well-preserved. Mild subchondral sclerosis in the subarticular lateral and medial tibial plateau. Mild marginal osteophytosis in the medial, lateral and patellofemoral joint spaces. XR/XR knee RT 1-2V 48417 IMPRESSION: Mild osteoarthritis as above.
== END 2022-10-08 12:24 | disposition home or self-care (01) ==
LOC: RAD 12:33
PROVIDERS: PCP Nurse Practitioner Family; Visit Provider Nurse Practitioner Family
DX: M25.462 Effusion, left knee (principal); M17.11 Unilateral primary osteoarthritis, right knee; M75.101 Unspecified rotator cuff tear or rupture of right shoulder, not specified as traumatic
CPT/HCPCS: 73560; 99024

== ENCOUNTER → 2022-10-15 09:42 | Outpatient (BNVA) | payer MEDICARE, MEDICAID, SELFPAY ==
[2021-09-25 16:05] VITALS: BP 154/81; BMI 45.6
== END ==
PROVIDERS: PCP Nurse Practitioner Family; Visit Provider Podiatrist Foot & Ankle Surgery
DX: E11.9 Type 2 diabetes mellitus without complications (principal); L60.3 Nail dystrophy; L84 Corns and callosities; M21.42 Flat foot [pes planus] (acquired), left foot; M21.41 Flat foot [pes planus] (acquired), right foot; Z79.4 Long term (current) use of insulin
CPT/HCPCS: 11056; 11721

== ENCOUNTER → 2022-11-12 08:46 | Outpatient (BNVA) | payer MEDICARE, MEDICAID, OTHER, SELFPAY ==
[2021-09-25 16:05] VITALS: BP 154/81; BMI 45.6
== END ==
PROVIDERS: PCP Nurse Practitioner Family; Visit Provider Orthopaedic Surgery
DX: M67.912 Unspecified disorder of synovium and tendon, left shoulder (principal); M25.531 Pain in right wrist
CPT/HCPCS: 99213

== ENCOUNTER → 2022-12-03 13:16 | Outpatient (BNVA) | payer MEDICARE, MEDICAID, SELFPAY ==
[2021-09-25 16:05] VITALS: BP 154/81; BMI 45.6
== END ==
PROVIDERS: PCP Nurse Practitioner Family; Visit Provider Orthopaedic Surgery
DX: Z98.890 Other specified postprocedural states (principal); M19.031 Primary osteoarthritis, right wrist
CPT/HCPCS: 73110; 99213

== ENCOUNTER → 2022-12-10 13:50 | Outpatient (BNVA) | payer MEDICARE, MEDICAID, SELFPAY ==
[2021-09-25 16:05] VITALS: BP 154/81; BMI 45.6
== END ==
PROVIDERS: PCP Nurse Practitioner Family; Visit Provider Physician Assistant
DX: M43.16 Spondylolisthesis, lumbar region (principal)
CPT/HCPCS: 72110; 99203

== ENCOUNTER 2022-12-21 15:54 | Emergency (ER) | payer MEDICARE, MEDICAID, SELFPAY ==
[2021-09-25 16:05] VITALS: BP 154/81; BMI 45.6
[2022-12-21 16:06] VITALS: BP 134/59; PULSE 95; RESP 18; TEMP 36.8; O2SAT 97
--- NOTE | 2022-12-21 16:11 | ED_ITS ---
HPI - Allergic Reaction General: Chief complaint: Allergic Reaction Stated complaint: lips and toung swelling Time Seen by Provider: 12/21/22 16:11 History of Present Illness: HPI narrative: Ms. Hernandez is a 47-year-old lady with complex past medical history including diabetes, psychiatric issues presenting to the emergency department for evaluation of concern over lip and mouth abnormality. She reports history of frequent dry mouth however over the past couple weeks has noticed increased difficulty swallowing as well as tongue feeling swollen and intermittent painful sensation on the lips. Overall course of symptoms is worsened. She denies specific known new environmental contacts that does have a number of medications including mouthwash for dry mouth, Orajel, and has history of recent dental work. No other specific changes in health, exacerbating, or alleviating factors identified. Known history of allergy to: Unknown Review of Systems General: Reports: 10 or more systems reviewed and unremarkable except in HPI and below PFSH ED PFSH: Medical History Chronic post-traumatic stress disorder (PTSD) 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 Diabetes mellitus Generalized anxiety disorder GI bleed due to NSAIDs History of gallbladder disease Intervertebral disc disorder with radiculopathy of lumbosacral region Left upper extremity swelling Major depressive disorder, recurrent episode with mood-congruent psychotic features Mass of left upper extremity MDD (major depressive disorder) Obstructive sleep apnea Post-menopausal bleeding secondary amenorrhea not post menopausal bleeding Problems related to lack of adequate sleep Problems related to lack of adequate sleep Psychiatric care Surgical History Carpal tunnel syndrome on right 2009 S/P cholecystectomy 2002 S/P insertion of spinal cord stimulator Family History Mother Heart disease Stroke Diabetes Brother Diabetes Grandmother Stroke maternal Social History Smoking and tobacco status: former smoker Alcohol intake: never Substance/Drug Use: never Physical Exam Const: COMMON NORMALS: alert GENERAL APPEARANCE: cooperative and well developed HENMT: COMMON NORMALS: normocephalic and atraumatic HEAD & SCALP: normocephalic and atraumatic THROAT: posterior oropharynx normal OTHER: No clear evidence of angioedema, posterior pharynx and tongue are unremarkable, no evidence of distortion of anatomy or deep tissue infection. There is mild irritation of lips with dryness. Eye: COMMON NORMALS: conjunctivae normal CONJUNCTIVA: Yes conjunctivae normal SCLERA: sclerae normal Neck/C-Spine: COMMON NORMALS: supple GENERAL: Yes trachea midline Resp: COMMON NORMALS: normal respiratory effort EFFORT & INSPECTION: Yes able to speak in complete sentences Cardio: COMMON NORMALS: regular rate and regular rhythm RATE: regular rate RHYTHM: regular rhythm GI: COMMON NORMALS: Soft to palpation PALPATION: Yes Soft to palpation and No Tenderness to palpation present (GI) PERCUSSION: normal to percussion Extremity: GENERAL: Yes normal exam except as noted and No edema Neuro: COMMON NORMALS: moves all extremities SENSORIUM/ORIENTATION: Yes alert and No Orientation impaired Psych: COMMON NORMALS: mental status grossly normal and Normal thought process present THOUGHT PROCESS: Normal thought process present Course Vital Signs: Vital signs: Vital Signs Temperature 98.2 F 12/21/22 16:06 Pulse Rate 82 12/21/22 19:26 Respiratory Rate 16 12/21/22 19:26 Blood Pressure 137/63 12/21/22 19:26 Pulse Oximetry 98 12/21/22 19:26 Oxygen Delivery Me thod Room Air 12/21/22 19:26 MDM - Allergic Reaction Medical Decision Making 47-year-old lady presenting with concern over facial and tongue swelling. Somewhat hard to delineate on exam, certainly no evidence of impending airway compromise. No evidence of anaphylaxis. Labs with no significant hematologic or metabolic abnormality. Minimal elevation in inflammatory markers. Given somewhat unclear etiology of symptoms in the context of some dental work recently CT imaging is warranted. There is no evidence of acute pathology. Thyroid nodule discussed with patient. Patient treated with IV fluids and feels improved. She has had near complete resolution of subjective symptoms. Most likely etiology of patient's symptoms is unclear however may be related to recent procedures. Overall low clinical suspicion for allergic reaction. Certainly no indication for hospitalization for airway observation or other surgical/medical intervention. The results of ED evaluation were discussed with the patient including prescriptions and/or symptomatic cares (if applicable) including appropriate and responsible use, followup plan, and return precautions. The patient verbalized understanding and felt safe for discharge. Medical Records I reviewed the patient's medical records. Lab Data I reviewed the patient's lab results. 12/21/22 17:38 04/22/23 17:[address] 12/21/22 18:11 IMPRESSION: 1. No acute findings. COMMENTS: Consistent with the [employer]'s Incidental Findings Committee white paper ([employer]iol 2015): In patients aged 35 years and older with an incidental thyroid nodule equal to or greater than 1.[address], MRI or extrathyroidal US, further evaluation with dedicated thyroid US is recommended for patients with normal life expectancy and without comorbidities. For smaller nodules without suspicious features, no further evaluation or follow up is recommended. Laboratory Results WBC 9.6 10^3/uL (4.0-10.0) 12/21/22 17:38 RBC 4.98 10^6/uL (4.1-5.3) 12/21/22 17:38 Hgb 12.5 g/dL (11.5-15.3) 12/21/22 17:38 Hct 40.9 % (37.0-47.0) 12/21/22 17:38 MCV 82.1 fl (81-99) 12/21/22 17:38 MCH 25.1 pg (28.0-34.0) L 12/21/22 17:38 MCHC 30.6 g/dL (30.0-36.0) 12/21/22 17:38 RDW 15.4 % (12.1-15.1) H 12/21/22 17:38 Plt Count 286 10^3/cmm (130-400) 12/21/22 17:38 MPV 10.0 fL (7.4-10.4) 12/21/22 17:38 Neut % (Auto) 80.5 % 12/21/22 17:38 Lymph % (Auto) 12.9 % 12/21/22 17:38 [place] % (Auto) 4.4 % 12/21/22 17:38 Eos % (Auto) 1.6 % 12/21/22 17:38 Baso % (Auto) 0.4 % 12/21/22 17:38 Neut # (Auto) 7.74 10^3/uL (1.8-7.7) H 12/21/22 17:38 Lymph # (Auto) 1.2 10^3/uL (0.8-4.8) 12/21/22 17:38 [place] # (Auto) 0.4 10^3/uL (0.2-0.9) 12/21/22 17:38 Eos # (Auto) 0.2 10^3/uL (0.0-0.8) 12/21/22 17:38 Baso # (Auto) 0.0 10^3/uL (0.0-0.1) 12/21/22 17:38 Nucleated RBC % (auto) 0 % 12/21/22 17:38 Nucleated RBCs # 0.0 /100WBC 12/21/22 17:38 ESR 36 mm/hr (0-15) H 12/21/22 17:38 Sodium 137 mmol/L (136-145) 12/21/22 17:38 Potassium 3.9 mmol/L (3.5-5.1) 12/21/22 17:38 Chloride 98 mmol/L (98-107) 12/21/22 17:38 Carbon Dioxide 25 mmol/L (22-29) 12/21/22 17:38 Anion Gap 17.9 (5-19) 12/21/22 17:38 BUN 17 mg/dL (6-20) 12/21/22 17:38 Creatinine 0.6 mg/dL (0.5-0.9) 12/21/22 17:38 GFR Calculation 107.2 mL/min (90-130) 12/21/22 17:38 Glucose 105 mg/dL (65-115) 12/21/22 17:38 Calculated Osmolality 286 mOsm/kg (285-295) 12/21/22 17:38 Calcium 9.3 mg/dL (8.5-10.5) 12/21/22 17:38 C-Reactive Protein 21.4 mg/L (0.0-4.9) H 12/21/22 17:38 TSH 3.73 uIU/mL (0.27-4.20) 12/21/22 17:38 Discharge Plan Discharge Patient Disposition: Home Clinical Impression: Acute pain of mouth Condition: Stable Prescriptions: New Diflucan 150 mg tablet 150 mg PO Q3D Qty: 2 0RF No Action dicyclomine 10 mg capsule 10 mg PO QID methocarbamol 500 mg tablet 2,000 mg PO QID PRN (Reason: Spasms) pregabalin [Lyrica] 100 mg capsule 100 mg PO TID furosemide [Lasix] 20 mg tablet 20 mg PO QAM PRN (Reason: Edema) lisinopril 2.5 mg tablet 2.5 mg PO DAILY oxybutynin chloride 5 mg tablet 5 mg PO BID mecobalamin (vitamin B12) 1,000 mcg tablet,chewable 1,000 mcg PO DAILY ropinirole 4 mg tablet 4 mg PO TID Victoza 2-[place] 0.6 mg/0.1 mL (18 mg/3 mL) pen injector 1.8 mg SUBCUT Q24H medical marijuana 1 applicator as directed DAILY glimepiride [Amaryl] 4 mg tablet 4 mg PO DAILY DEKAs Plus (folic acid) 200 mcg-1,000 mcg-10 mg capsule PO (DME) Diabetic Shoes with 3 pairs of inserts See Rx Instructions .Route .MEDSUPPLY Qty: 1 0RF Rx Instructions: As directed By HOME Farxiga 10 mg tablet 10 mg PO DAILY Qty: 90 3RF Rx Instructions: take 1 tablet daily pantoprazole [Protonix] 40 mg tablet,delayed release (DR/EC) 40 mg PO BID Qty: 180 3RF Rx Instructions: 340B Lantus Solostar U-100 Insulin 100 unit/mL (3 mL) insulin pen See Rx Instructions .ROUTE .COMPLEX Qty: 75 2RF Dose Instruction: INJECT 75 TO 80 UNITS UNDER THE SKIN (SUBCUTANOUSLY) DAILY, IF BLOOD SUGAR IS ABOVE 130 FOR 3 DAYS INCREASE BY 2 UNITS. MAXIMUM DOSE 80 UNITS. Rx Instructions: INJECT 75 TO 80 UNITS UNDER THE SKIN (SUBCUTANOUSLY) DAILY, IF BLOOD SUGAR IS ABOVE 130 FOR 3 DAYS INCREASE BY 2 UNITS. MAXIMUM DOSE 80 UNITS. levothyroxine 25 mcg tablet See Rx Instructions .ROUTE .COMPLEX Qty: 143 1RF Dose Instruction: TAKE 1 TABLET BY MOUTH ON FRIDAY THROUGH FRIDAY AND TWO TABLETS BY MOUTH ON FRIDAY THROUGH FRIDAY Rx Instructions: TAKE 1 TABLET BY MOUTH ON FRIDAY THROUGH FRIDAY AND TWO TABLETS BY MOUTH ON FRIDAY THROUGH FRIDAY amitriptyline 100 mg tablet 100 mg PO .HS 30 Days Qty: 30 3RF duloxetine 60 mg capsule,delayed release(DR/EC) 60 mg PO QAM 30 Days Qty: 30 3RF trazodone 100 mg tablet 100 mg PO .qhs 30 Days Qty: 30 3RF paroxetine HCl [Paxil] 30 mg tablet 45 mg PO DAILY Qty: 45 3RF fenofibrate micronized 200 mg capsule 200 mg PO DAILY Discharge Orders: Discharge ED (Routine); Ordered 12/21/22 Ordered By: Colton Pal Referrals: Antonella Chairez FNP [Primary Care Provider] - Discharge Diet: Usual diet Discharge Activity: Increase activity as tolerated Patient Instructions: Oral Candidiasis (ED), Opioid Safety (ED), General A llergic Reaction (ED) Activity Restrictions/Additional Instructions: Thank you for visiting the emergency department. You were seen and evaluated for mouth pain and swelling. The exact cause of your symptoms is unclear. There may be early oral yeast infection or mild allergic reaction. Please follow-up with your primary care provider and ENT as scheduled. Return to the emergency department for worsening symptoms or anything else that you are concerned about and feel needs emergency department evaluation. Coding Level of Care Code ED Salary Manager for Wili Swartz
[2022-12-21] MEDS: sodium chloride 0.9% 500 ML IV (17:42)
[2022-12-21 17:48] LABS: Basophils % 0.4 %; Eosinophils # 0.2 10^3/uL (0.0-0.8); Eosinophils % 1.6 %; Hematocrit 40.9 % (37.0-47.0); Hemoglobin 12.5 g/dL (11.5-15.3); Lymphocytes # 1.2 10^3/uL (0.8-4.8); Lymphocytes % 12.9 %; Mean Corpuscular HGB Conc 30.6 g/dL (30.0-36.0); Mean Corpuscular Hemoglobin 25.1 pg (28.0-34.0); Mean Corpuscular Volume 82.1 fl (81-99); Monocytes # 0.4 10^3/uL (0.2-0.9); Monocytes % 4.4 %; Neutrophils # 7.74 10^3/uL (1.8-7.7); Neutrophils % 80.5 %; Nucleated Red Blood Cells % 0 %; Platelet Count 286 10^3/cmm (130-400); Red Blood Count 4.98 10^6/uL (4.1-5.3); Red Cell Distribution Width 15.4 % (12.1-15.1); White Blood Count 9.6 10^3/uL (4.0-10.0)
[2022-12-21 17:56] LABS: Erythrocyte Sedimentation Rate 36 mm/hr (0-15)
--- NOTE | 2022-12-21 18:11 | CTR_ITS ---
PROCEDURE INFORMATION: Exam: CT Neck With Contrast Exam date and time: 12/21/2022 6:20 PM Age: 47 years old Clinical indication: Neck pain and painful swallowing; Additional info: Throat tightness, mouth pain, dysphagia TECHNIQUE: Imaging protocol: Computed tomography of the neck with contrast. Radiation optimization: All CT scans at this facility use at least one of these dose optimization techniques: automated exposure control; mA and/or kV adjustment per patient size (includes targeted exams where dose is matched to clinical indication); or iterative reconstruction. Contrast material: OMNI 350; Contrast volume: 100 ml; Contrast route: INTRAVENOUS (IV); REPORTING DATA: Count of CT and Cardiac NM exams in prior 12 months: This patient has received 0 known CTs and 0 known cardiac nuclear medicine studies in the 12 months prior to the current study. COMPARISON: MR shoulder RT wo con* [id number] 07/29/2022 11:48 AM RADIATION DOSE METRICS: Total DLP (mGy-cm): 330.9 FINDINGS: Pharynx: Unremarkable. No significant tonsillar enlargement. Larynx: Unremarkable. Epiglottis is normal. Prevertebral and retropharyngeal spaces: Unremarkable. Salivary glands: Normal. Glands are normal in size. Thyroid: 1.3 cm right thyroid nodule. No ultrasound follow-up is recommended. Lymph nodes: Unremarkable. No lymphadenopathy. Trachea: Visualized trachea is unremarkable. Lungs: Mosaic attenuation in both lungs, consistent with air trapping. Bones/joints: Unremarkable. No acute fracture. Soft tissues: Unremarkable. No significant soft tissue swelling. CT/CT neck w con* [id number] IMPRESSION: 1. No acute findings. COMMENTS: Consistent with the [employer]'s Incidental Findings Committee white paper (J [employer]iol 2015): In patients aged 35 years and older with an incidental thyroid nodule equal to or greater than 1.[address], MRI or extrathyroidal US, further evaluation with dedicated thyroid US is recommended for patients with normal life expectancy and without comorbidities. For smaller nodules without suspicious features, no further evaluation or follow up is recommended.
[2022-12-21 18:17] LABS: Anion Gap 17.9 (5-19); Blood Urea Nitrogen 17 mg/dL (6-20); C Reactive Protein 21.4 mg/L (0.0-4.9); Calcium 9.3 mg/dL (8.5-10.5); Carbon Dioxide 25 mmol/L (22-29); Chloride 98 mmol/L (98-107); Glomerular Filtration Rate 107.2 mL/min (90-130); Glucose 105 mg/dL (65-115); Osmolality Calculated 286 mOsm/kg (285-295); Potassium 3.9 mmol/L (3.5-5.1); Sodium 137 mmol/L (136-145); Thyroid Stimulating Hormone 3.73 uIU/mL (0.27-4.20)
[2022-12-21] MEDS: iohexol 350 mg/mL 500 mL Btl (per mL) IV (18:20)
--- NOTE | 2022-12-21 19:25 | PC.NURSE ---
IV REMOVED FROM RIGHT ARM DRESSING APPLIED.
[2022-12-21 19:26] VITALS: BP 137/63; PULSE 82; RESP 16; O2SAT 98
== END 2022-12-21 19:28 | disposition home or self-care (01) ==
PROVIDERS: Emergency Provider Emergency Medicine; PCP Nurse Practitioner Family
DX: K13.79 Other lesions of oral mucosa (principal); Z79.4 Long term (current) use of insulin; Z79.84 Long term (current) use of oral hypoglycemic drugs; Z87.891 Personal history of nicotine dependence; E11.9 Type 2 diabetes mellitus without complications
CPT/HCPCS: 70491; 80048; 84443; 85025; 85651; 86140; 99285; J7040; Q9967

== ENCOUNTER → 2022-12-24 10:06 | Outpatient (BNVA) | payer MEDICARE, MEDICAID, SELFPAY ==
[2021-09-25 16:05] VITALS: BP 154/81; BMI 45.6
== END ==
PROVIDERS: PCP Nurse Practitioner Family; Visit Provider Internal Medicine
DX: E11.649 Type 2 diabetes mellitus with hypoglycemia without coma (principal); E03.9 Hypothyroidism, unspecified; E78.2 Mixed hyperlipidemia; N91.2 Amenorrhea, unspecified; Z79.4 Long term (current) use of insulin; Z79.890 Hormone replacement therapy
CPT/HCPCS: 99214

== ENCOUNTER 2022-12-31 12:38 | Outpatient (CLI) | payer MEDICARE, MEDICAID, OTHER, SELFPAY ==
[2021-09-25 16:05] VITALS: BP 154/81; BMI 45.6
--- NOTE | 2022-12-31 12:58 | XRR_ITS ---
PROCEDURE INFORMATION: Exam: XR Left Shoulder Exam date and time: 12/31/2022 1:03 PM Age: 47 years old Clinical indication: Pain; Shoulder; Left; Additional info: Pain in left shoulder TECHNIQUE: Imaging protocol: Radiologic exam of the left shoulder. Views: 2 or more views. COMPARISON: CT neck w con* [id number] 12/21/2022 6:20 PM FINDINGS: Bones/joints: No fracture or dislocation is seen about the left shoulder. AC joint appears maintained. Moderate degenerative change about the AC joint. Adjacent osseous structures show no significant abnormality. Soft tissues: No abnormal soft tissue calcification is seen in the shoulder joint. XR/XR shoulder LT min 2V* [id number] IMPRESSION: Moderate degenerative change left AC joint. No acute findings.
== END 2022-12-31 12:39 | disposition home or self-care (01) ==
PROVIDERS: PCP Nurse Practitioner Family; Visit Provider Nurse Practitioner Family
DX: M25.512 Pain in left shoulder (principal)
CPT/HCPCS: 73030

== ENCOUNTER 2023-01-02 20:00 | Outpatient (CLI) | payer MEDICARE, MEDICAID, SELFPAY ==
[2021-09-25 16:05] VITALS: BP 154/81; BMI 45.6
== END 2023-01-02 20:01 | disposition home or self-care (01) ==
PROVIDERS: PCP Nurse Practitioner Family; Visit Provider Anesthesiology Pain Medicine
DX: G47.33 Obstructive sleep apnea (adult) (pediatric) (principal)
CPT/HCPCS: 95811

== ENCOUNTER → 2023-01-07 10:18 | Outpatient (BNVA) | payer MEDICARE, MEDICAID, SELFPAY ==
[2021-09-25 16:05] VITALS: BP 154/81; BMI 45.6
== END ==
PROVIDERS: PCP Nurse Practitioner Family; Visit Provider Nurse Practitioner Family
DX: M67.912 Unspecified disorder of synovium and tendon, left shoulder (principal); Z47.89 Encounter for other orthopedic aftercare
CPT/HCPCS: 99214

== ENCOUNTER → 2023-01-16 08:35 | Outpatient (BNVA) | payer MEDICARE, MEDICAID, SELFPAY ==
[2021-09-25 16:05] VITALS: BP 154/81; BMI 45.6
== END ==
PROVIDERS: PCP Nurse Practitioner Family; Visit Provider Podiatrist Foot & Ankle Surgery
DX: E11.8 Type 2 diabetes mellitus with unspecified complications (principal); L60.3 Nail dystrophy; L84 Corns and callosities; M21.40 Flat foot [pes planus] (acquired), unspecified foot; M19.079 Primary osteoarthritis, unspecified ankle and foot
CPT/HCPCS: 11056; 11721; 73630; 99214

== ENCOUNTER → 2023-01-21 08:13 | Outpatient (BNVA) | payer MEDICARE, MEDICAID, SELFPAY ==
[2021-09-25 16:05] VITALS: BP 154/81; BMI 45.6
== END ==
PROVIDERS: PCP Nurse Practitioner Family; Visit Provider Physician Assistant
DX: M47.816 Spondylosis without myelopathy or radiculopathy, lumbar region (principal); M43.16 Spondylolisthesis, lumbar region
CPT/HCPCS: 99213

== ENCOUNTER → 2023-01-22 09:54 | Outpatient (BNVA) | payer MEDICARE, MEDICAID, SELFPAY ==
[2021-09-25 16:05] VITALS: BP 154/81; BMI 45.6
== END ==
PROVIDERS: PCP Nurse Practitioner Family; Visit Provider Nurse Practitioner Family
DX: M67.912 Unspecified disorder of synovium and tendon, left shoulder (principal)
CPT/HCPCS: 20610; 99213; J1100; J2795; J3301

== ENCOUNTER 2023-01-29 08:07 | Outpatient (CLI) | payer MEDICARE, MEDICAID, SELFPAY ==
[2021-09-25 16:05] VITALS: BP 154/81; BMI 45.6
--- NOTE | 2023-01-29 08:25 | FL_ITS ---
WS: [id number] Exam: FL barium swallow [id number] Date/Time of Exam: 01/29/2023 8:29 AM Reason For Exam: GLOSSODYNIA/DYSPHAGIA,OROPHARYNGEAL PHASE Fluoroscopy time: 2min [id number] minutes # of spot films: Swallowing function at the level of oropharynx was normal. No indication of aspiration or penetration . The esophagus is smooth in contour with normal motility. No sign of esophageal stricture or mass. T he esophagus is not displaced. No hiatal hernia or GE reflux. FL/FL barium swallow [id number] IMPRESSION: 1. Unremarkable esophagram.
== END 2023-01-29 08:08 | disposition home or self-care (01) ==
LOC: RAD 08:15
PROVIDERS: PCP Nurse Practitioner Family; Visit Provider Otolaryngology
DX: K14.6 Glossodynia (principal); R13.12 Dysphagia, oropharyngeal phase
CPT/HCPCS: 74220

== ENCOUNTER → 2023-02-11 14:41 | Outpatient (BNVA) | payer MEDICARE, MEDICAID, SELFPAY ==
[2021-09-25 16:05] VITALS: BP 154/81; BMI 45.6
== END ==
PROVIDERS: PCP Nurse Practitioner Family; Visit Provider Orthopaedic Surgery
DX: M75.82 Other shoulder lesions, left shoulder (principal)
CPT/HCPCS: 99213

== ENCOUNTER 2023-02-13 08:34 | Outpatient (CLI) | payer MEDICARE, MEDICAID, SELFPAY ==
[2021-09-25 16:05] VITALS: BP 154/81; BMI 45.6
--- NOTE | 2023-02-13 08:45 | MR_ITS ---
WS: [id number] MRI LUMBAR SPINE NONCONTRAST TECHNIQUE: Sagittal T1, T2 and STIR imaging. Axial T1 and T2 imaging. CLINICAL INFORMATION: lumbar/leg pain COMPARISON: MRI 2020 FINDINGS: Susceptibility artifact from spinal stimulator. Mild lumbar curve. No acute compression. Slight anterolisthesis L4 on L5. L1-L2: Spinal canal and foramen are patent. Mild facet arthropathy. L2-L3: Slight anterolisthesis. Mild disc bulging with impingement subarticular recess. Mild facet art hropathy. Mild central canal stenosis. Mild RIGHT foraminal narrowing L3-L4: Mild annular bulging with slight impingement LEFT subarticular recess. Mild central canal sten osis. Mild LEFT foraminal narrowing. RIGHT foramen is patent. Mild facet arthropathy. L4-L5: Slight anterolisthesis. Disc bulging with moderate central canal stenosis. Impingement on the traversing L5 nerve roots. Moderate to advanced facet arthropathy with ligamentum flavum hypertrophy. Mild RIGHT foraminal narrowing. L5-S1: Mild annular bulging. Mild facet arthropathy. Spinal canal and foramen are patent. Tiny disc protrusions in the lower thoracic spine at T6-T8 on the security door installer imaging Partially visualized LEFT ovarian cyst measuring 3.1 CM. MR/MR lumbar spine wo con* [id number] IMPRESSION: 1. Mild lumbar curve. No acute compression. 2. Moderate central canal stenosis L4-L5 progressed compared to previous with impingement on traversing L5 nerve roots bilaterally. Moderate to advanced face t arthropathy. 3. Mild central canal stenosis L2-L3 and L3-L4 with mild disc bulging. Slight impingement on the LEFT L3-L4 subarticular recess. 4. Mild RIGHT L2-L3 foraminal narrowing. Mild LEFT L3-L4 and RIGHT L4-L5 manasa inal narrowing.
--- NOTE | 2023-02-13 08:49 | FL_ITS ---
WS: [id number] FL barium swallow modifd [id number] REASON FOR EXAM: Oropharyngeal dysphagia FLUOROSCOPY TIME: 2min [id number] # OF SPOT FILMS: None FINDINGS: Patient was examined in the upright sitting lateral position. The examination was supervised by the speech therapy department. The swallowing of varying consistencies of barium was monitored fluoroscopically and video recorded. Detailed analysis and report will be rendered by the speech therapy department. FL/FL barium swallow modifd [id number] IMPRESSION: Modified barium swallow as above.
== END 2023-02-13 08:35 | disposition home or self-care (01) ==
LOC: RAD 08:35
PROVIDERS: PCP Nurse Practitioner Family; Visit Provider Physician Assistant
DX: R13.12 Dysphagia, oropharyngeal phase (principal); K21.9 Gastro-esophageal reflux disease without esophagitis; M47.816 Spondylosis without myelopathy or radiculopathy, lumbar region; M43.16 Spondylolisthesis, lumbar region; M48.061 Spinal stenosis, lumbar region without neurogenic claudication
CPT/HCPCS: 72148; 74230; 92611; 99213

== ENCOUNTER 2023-02-18 14:18 | Outpatient (CLI) | payer MEDICARE, MEDICAID, SELFPAY ==
[2021-09-25 16:05] VITALS: BP 154/81; BMI 45.6
== END 2023-02-18 14:19 | disposition home or self-care (01) ==
PROVIDERS: PCP Nurse Practitioner Family; Visit Provider Orthopaedic Surgery
DX: E11.9 Type 2 diabetes mellitus without complications (principal); E03.9 Hypothyroidism, unspecified; E78.2 Mixed hyperlipidemia; N83.209 Unspecified ovarian cyst, unspecified side; N91.2 Amenorrhea, unspecified; N95.0 Postmenopausal bleeding; Z79.4 Long term (current) use of insulin; Z79.890 Hormone replacement therapy; Z79.84 Long term (current) use of oral hypoglycemic drugs
CPT/HCPCS: 99214

== ENCOUNTER 2023-02-19 11:42 | Outpatient (CLI) | payer MEDICARE, MEDICAID, SELFPAY ==
[2021-09-25 16:05] VITALS: BP 154/81; BMI 45.6
--- NOTE | 2023-02-19 11:57 | MR_ITS ---
WS: [id number] MRI LEFT SHOULDER HISTORY: Limited range of motion and shoulder pain. COMPARISON: LEFT shoulder radiograph 2022 TECHNIQUE: Multiplanar sequences of the shoulder joint are submitted. Motion artifact on numerous sequences. Marked AC joint arthritis. Variable signal intensity through the AC joint and involving the distal cl avicle and acromion. Osteophyte from the AC joint encroaches upon the supraspinatus muscle and tendon with deformity. There is fluid in subacromial and subdeltoid bursa. No subacromial impingement. Hue ps tendon remains in the bicipital groove. Otherwise detail is limited by breathing motion artifact. No os acromion. No muscle atrophy. There is edema in the subscapularis muscle. Fluid distention of the subscapular r ecess. No muscle atrophy. There is loss of continuity of the subscapularis tendon. Due to the amount of motion findings are suspicious for complete tear of the distal subscapularis tendon. Supraspinatus and infraspinatus tendon are normal. Labrum is difficult to evaluate secondary to the motion artifac t. MR/MR shoulder LT wo con* [id number] IMPRESSION: 1. Marked AC joint arthritis with osteophyte encroachment upon the supraspinat us muscle causing deformity. 2. Small amount of fluid in the subacromial and subdeltoid bursa. 3. Loss of continuity involving the subscapularis tendon. There is motion rodrigo fact but favor complete tendon tear. Additional edema within the subscapularis muscle.
== END 2023-02-19 11:43 | disposition home or self-care (01) ==
LOC: RAD 11:44
PROVIDERS: PCP Nurse Practitioner Family; Visit Provider Orthopaedic Surgery
DX: M75.82 Other shoulder lesions, left shoulder (principal); M25.712 Osteophyte, left shoulder; M21.922 Unspecified acquired deformity of left upper arm; M19.012 Primary osteoarthritis, left shoulder; M25.512 Pain in left shoulder
CPT/HCPCS: 73221

== ENCOUNTER → 2023-02-21 08:41 | Outpatient (BNVA) | payer MEDICARE, MEDICAID, SELFPAY ==
[2021-09-25 16:05] VITALS: BP 154/81; BMI 45.6
== END ==
PROVIDERS: PCP Nurse Practitioner Family; Visit Provider Orthopaedic Surgery
DX: M75.102 Unspecified rotator cuff tear or rupture of left shoulder, not specified as traumatic (principal)
CPT/HCPCS: 99213

== ENCOUNTER → 2023-02-25 08:05 | Outpatient (BNVA) | payer MEDICARE, MEDICAID, SELFPAY ==
[2021-09-25 16:05] VITALS: BP 154/81; BMI 45.6
== END ==
PROVIDERS: PCP Nurse Practitioner Family; Visit Provider Physician Assistant
DX: M47.816 Spondylosis without myelopathy or radiculopathy, lumbar region (principal); E11.9 Type 2 diabetes mellitus without complications; M43.16 Spondylolisthesis, lumbar region; M48.062 Spinal stenosis, lumbar region with neurogenic claudication
CPT/HCPCS: 36415; 80053; 83036; 85025; 99213

== ENCOUNTER → 2023-03-06 11:00 | Outpatient (BNVA) | payer MEDICARE, MEDICAID, SELFPAY ==
[2021-09-25 16:05] VITALS: BP 154/81; BMI 45.6
== END ==
PROVIDERS: PCP Nurse Practitioner Family; Visit Provider Internal Medicine
DX: Z01.818 Encounter for other preprocedural examination (principal); R07.9 Chest pain, unspecified; I49.8 Other specified cardiac arrhythmias
CPT/HCPCS: 93005

== ENCOUNTER → 2023-03-07 05:45 | Day surgery (SDC) | payer MEDICARE, MEDICAID, SELFPAY ==
[2021-09-25 16:05] VITALS: BP 154/81; BMI 45.6
[2023-03-06 13:03] VITALS: BMI 46.5
[2023-03-07] VITALS (9 sets, daily range): BP systolic 113–157; BP diastolic 63–78; PULSE 78–95; RESP 16–18; TEMP 35.9–36.7; O2SAT 90–95
--- NOTE | 2023-03-07 | XR_ITS ---
WS: [id number] Lumbar spine, C-arm fluoroscopy views, 03/07/2023 Clinical Data: RIGHT SIDED L4-5 decompression Comparison: Lumbar spine, 12/10/2022 Findings: Dr. Nowak performed a lumbar decompression. XR/XR lumbar spine 1V [id number] Impression: Lumbar decompression.
[2023-03-07] MEDS: sodium chloride 0.9% 1,000 ML 30 ML IV (06:02)
[2023-03-07 06:11] LABS: OR HCG Qualitative Urine Negative (Negative)
[2023-03-07 06:26] LABS: Glucose Point of Care 187 mg/dL (70-110)
--- NOTE | 2023-03-07 06:33 | W.PM.OPSUD ---
Surgery/Procedure H&P Update DATE OF PROCEDURE: March 07, 2023 DATE H&P PERFORMED: 02/25/23 H&P UPDATE INFORMATION: I have reviewed H&P completed within last 30 days, I have examined patient prior to procedure and No changes to prior documentation PREOP DIAGNOSIS: Lumbar stenosis PLANNED PROCEDURE: Operation Date: 03/07/23 07:00 Proposed Procedures p right sided Lumbar Spine Decompression:[id number],m48.062(Right) - Leo Nowak DO
[2023-03-07] MEDS: ceFAZolin 2,000 MG in sodium chloride 0.9% (plus) 50 ML 100 MG IV (07:00)
[2023-03-07] MEDS: vancomycin 1,000 MG SDV 1000 MG (07:45)
[2023-03-07] MEDS: lidocaine-epi 1% 20 mL INJ INJECTION (07:45)
--- NOTE | 2023-03-07 08:06 | P.OP_ITS ---
Operative Report Date of procedure: March 07, 2023 Pre-op diagnosis: Preop Diagnosis Lumbar stenosis with neurogenic claudication Post-op diagnosis: same Procedure done: 1. L4/5 laminectomy with partial facetectomy Surgeon: Leo Nowak Director Of Pupil Personnel Program: Yasmani Williamson Director Of Pupil Personnel Program: The surgical corsetier, EMELI Quiroz was needed for his expertise under the microscope. He was important and necessary throughout the procedure to complete in a safe and timely manner. He assisted with patient positioning prepping and draping tissue retraction suctioning of the operative field protection of the dural sac and tissue closure Estimated blood loss (mL): 5 Complications: bleb Procedure: 1. L4/5 laminectomy with partial facetectomy patient is brought to the operative suite. After undergoing anesthesia they are placed in the prone position. All areas of impingement are well padded. Patient is then prepped and draped in the normal sterile fashion. A skin incision is made over the L4/5 level. This is confirmed under c-arm guidance. A series of dilators are passed and the tubular retractor is docked on the L4 lamina. A bovie is used to clear the soft tissue off the lamina and the L 4/5 facet joint. A high speed dimas is then used to perform the laminectomy and take down the medial aspect of the L 4/5 facet joint. A kerrison rongeure was then used to take down the remaining lamina and smooth the edge of the laminectomy up to the point where the ligamentum flavum attaches. Attention was then brought to the medial aspect of the facet joint. The remaining medial aspect of the superior and inferior aspect of the facet joint were taken down with the kerrison from the pedicle of L4 to L 5. The facet joint had significant hypertrophy. Attention was then brought to the Ligamentum Flavum. The ligament was taken down from the lamina of L4 to L5 and out medially to the remaining facet joint. The ligament was thick and calcified. The dura was then exposed. The dura was in good repair. The L4 nerve was then traced with a curette out the L4/5 foramen and found to be adequately decompressed. The L5 nerve was traced with a curette around the L5 pedicle. The lateral recess was opened with a kerrison helping to further decompress the L5 nerve. There was a small bleb that occurred when cleaning out the foramen. I put a piece of ligament over as well as DuraGen. There was no evidence of any dural leak. Wound is then irrigated copiously with saline and surgiflo is used to stop any bleeding. The tubular retractor is removed and the wound is closed with vicryl and monocryl suture. Glue is then used to protect the wound. A sterile dressing is then placed. Patient was then placed in the supine position and transferred to the PACU in stable condition.
--- NOTE | 2023-03-07 08:22 | ANES.PREANE2 ---
Pre-Anesthetic Assessment Height/Weight: Height 1.6 m Weight 119.295 kg Temp Pulse Resp BP Pulse Ox O2 Del Method 96.6 F L 90 18 157/73 94 Room Air 03/07/23 06:09 03/07/23 06:09 03/07/23 06:09 03/07/23 06:09 03/07/23 06:09 03/07/23 06:16 Preop Diagnosis: Lumbar stenosis Operation Date: 03/07/23 07:00 Proposed Procedures p right sided Lumbar Spine Decompression:[id number],[id number](Right) - Loe Nowak DO Familial anesthetic complications: none Was Beta Sandeep taken within 24 hours: N/A Was Clonidine taken within 24 hours: N/A Last intake: Intake Last Liquid Date 03/06/23 Last Liquid Time 20:00 Last Solid Date 03/06/23 Last Solid Time 20:00 Social No alcohol and No tobacco Exam alert, oriented x 3, clear to auscultation bilaterally and regular rate & rhythm Airway Submandibular: within normal limits Cervical ROM: within normal limits Mallampati: Class II Dentition: full Pulmonary Sleep Apnea CV/HEM Hypertension GI Gastroesophageal Reflux Disease Metabolic Diabetes Mellitus, Hyperlipidemia, Morbid Obesity and Thyroid Disease Musc/skel Lower Back Pain and Osteoarthritis/DJD Neuropsych Anxiety and Depression Anesthetic Plan ASA status: 3 Anesthesia: General Medications/Allergies Home Medications Medication Instructions Recorded Confirmed Last Taken Type mecobalamin (vitamin B12) 1,000 1,000 mcg PO DAILY 02/29/20 03/06/23 03/06/23 History mcg chewable tablet ropinirole 4 mg tablet 4 mg PO TID 06/22/20 03/06/23 03/07/23 History furosemide 20 mg tablet (Lasix) 20 mg PO QAM PRN Edema 08/14/20 03/06/23 03/06/23 History methocarbamol 500 mg tablet 2,000 mg PO QID PRN Spasms 09/21/20 03/06/23 03/06/23 History dapagliflozin 10 mg tablet 10 mg PO DAILY #90 tabs 09/27/20 03/06/23 03/06/23 Rx (Farxiga) lisinopril 2.5 mg tablet 2.5 mg PO DAILY 09/13/21 03/06/23 03/06/23 History dicyclomine 10 mg capsule 10 mg PO QID 01/04/22 03/06/23 03/06/23 History oxybutynin chloride 5 mg tablet 5 mg PO BID 01/04/22 03/06/23 03/06/23 History pantoprazole 40 mg tablet,delayed 40 mg PO BID #180 tabs 01/23/22 03/06/23 03/06/23 Rx release (Protonix) medical marijuana 1 applicator as directed DAILY 04/17/22 03/06/23 03/06/23 History pregabalin 100 mg capsule (Lyrica) 100 mg PO TID 04/17/22 03/06/23 03/06/23 History fenofibrate micronized 200 mg 200 mg PO DAILY 08/29/22 03/06/23 03/06/23 History capsule Diabetic Shoes with 3 pairs of #1 ea 10/15/22 02/25/23 Unknown Rx inserts levothyroxine 25 mcg tablet See Rx Instructions .Route 12/18/22 03/07/23 03/06/23 Rx .COMPLEX #143 tabs multivit with min #53-FA 200 cap PO 12/31/22 03/05/23 03/06/23 History mcg-vit K 1,000 mcg-coQ10 10 mg capsule (DEKAs Plus (folic acid)) amitriptyline 100 mg tablet 100 mg PO .HS 30 days #30 tabs 01/06/23 03/06/23 03/06/23 Rx duloxetine 60 mg capsule,delayed 60 mg PO QAM 30 days #30 caps 01/06/23 03/06/23 03/06/23 Rx release paroxetine HCl 30 mg tablet (Paxil) 45 mg PO DAILY #45 tabs 01/06/23 03/06/23 03/06/23 Rx trazodone 100 mg tablet 100 mg PO .qhs 30 days #30 tabs 01/06/23 03/06/23 03/06/23 Rx diclofenac sodium 1 % topical gel 4 g topical QID #100 grams 01/23/23 03/07/23 03/06/23 Rx (Arthritis Pain (diclofenac)) glucagon 1 mg solution for 1 mg SUBCUT Q20M PRN hypoglycemia 02/18/23 03/07/23 Unknown Rx injection (Glucagon Emergency Kit) #1 ea insulin glargine 100 unit/mL (3 80 unit (0.8 mL) SUBCUT DAILY #75 02/20/23 03/06/23 03/06/23 Rx mL) subcutaneous pen (Lantus mL Solostar U-100 Insulin) FreeStyle Zain 2 Sensor (flash #6 ea 02/24/23 02/25/23 Unknown Rx glucose sensor) hydrocodone 5 mg-acetaminophen 325 1 - 2 tab PO .Q4-6H #40 tabs 03/07/23 Unknown Rx mg tablet Allergies Allergy/AdvReac Type Severity Reaction Status Date / Time No Known Allergies Allergy Verified 03/07/23 06:45 Current Medications Generic Name Dose Route Start Last Admin Trade Name Freq PRN Reason Stop Dose Admin Sodium Chloride 1,000 mls @ 30 mls/hr 03/07/23 06:00 03/07/23 06:02 Sodium Chloride 0.9% IV 03/08/23 05:59 30 mls/hr .Q24H MISSY Administration PFSH Anesthesia Medical History Chronic post-traumatic stress disorder (PTSD) 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 Diabetes mellitus Encounter for pre-operative examination Essential hypertension Generalized anxiety disorder GI bleed due to NSAIDs History of gallbladder disease Intervertebral disc disorder with radiculopathy of lumbosacral region Left upper extremity swelling Major depressive disorder, recurrent episode with mood-congruent psychotic features Mass of left upper extremity MDD (major depressive disorder) Obstructive sleep apnea Post-menopausal bleeding secondary amenorrhea not post menopausal bleeding Problems related to lack of adequate sleep Problems related to lack of adequate sleep Psychiatric care Surgical History Carpal tunnel syndrome on right 2009 S/P cholecystectomy 2001 S/P insertion of spinal cord stimulator Family History Mother Heart disease Stroke Diabetes Brother Diabetes Grandmother Stroke maternal Social History Smoking and tobacco status: former smoker Alcohol intake: never Substance/Drug Use: never Data Anesthesia Cardiac Studies: Echocardiogram Ultrasound 02/20/21
[2023-03-07 08:45] LABS: Glucose Point of Care 172 mg/dL (70-110)
[2023-03-07] MEDS: HYDROcodone-acetaminophen 5-325 mg Tablet 1 TAB PO (09:07)
[2023-03-07 09:31] LABS: Glucose Point of Care 192 mg/dL (70-110)
--- NOTE | 2023-03-07 14:53 | ANE.PACU2 ---
Inpatient post-anesthesia follow up: Airway intact: Yes Vital signs: Temperature 98.0 F Pulse Rate 78 Respiratory Rate 18 Blood Pressure 127/64 Pulse Oximetry 94 Oxygen Delivery Me thod Room Air Oxygen Flow Rate 6 Fraction of Inspir ed Oxygen Hydration adequate: Yes Nausea and vomiting: No Pain level: 3 Mental status: Baseline
== END | disposition home or self-care (01) ==
PROVIDERS: Physician Assistant; PCP Nurse Practitioner Family; Visit Provider Orthopaedic Surgery
PROC: (CPT 63005; principal; 2023-03-07 07:00)
DX: M48.062 Spinal stenosis, lumbar region with neurogenic claudication (principal); G47.30 Sleep apnea, unspecified; K21.9 Gastro-esophageal reflux disease without esophagitis; E11.9 Type 2 diabetes mellitus without complications; E78.5 Hyperlipidemia, unspecified; E66.01 Morbid (severe) obesity due to excess calories; Z68.42 Body mass index [BMI] 45.0-49.9, adult; E03.9 Hypothyroidism, unspecified; F32.A Depression, unspecified; F41.9 Anxiety disorder, unspecified; Z79.4 Long term (current) use of insulin; Z79.891 Long term (current) use of opiate analgesic; Z87.891 Personal history of nicotine dependence
CPT/HCPCS: 63047; 36416; 72020; 76000; 82962; 84703; J0131; J0690; J1100; J2250; J2405; J2704; J2710; J3010; J3370; J3490; J7030

== ENCOUNTER → 2023-03-25 07:57 | Outpatient (BNVA) | payer MEDICARE, MEDICAID, OTHER, SELFPAY ==
[2021-09-25 16:05] VITALS: BP 154/81; BMI 45.6
== END ==
PROVIDERS: PCP Nurse Practitioner Family; Visit Provider Physician Assistant
DX: Z98.890 Other specified postprocedural states (principal)
CPT/HCPCS: 99024

== ENCOUNTER → 2023-03-27 14:49 | Outpatient (BNVA) | payer MEDICARE, MEDICAID, SELFPAY ==
[2021-09-25 16:05] VITALS: BP 154/81; BMI 45.6
== END ==
PROVIDERS: PCP Nurse Practitioner Family; Visit Provider Student in an Organized Health Care Education/Training Program
DX: M75.42 Impingement syndrome of left shoulder (principal); M19.012 Primary osteoarthritis, left shoulder
CPT/HCPCS: 99204

== ENCOUNTER → 2023-04-10 12:57 | Outpatient (BNVA) | payer MEDICARE, MEDICAID, SELFPAY ==
[2021-09-25 16:05] VITALS: BP 154/81; BMI 45.6
== END ==
PROVIDERS: PCP Nurse Practitioner Family; Visit Provider Podiatrist Foot & Ankle Surgery
DX: E11.9 Type 2 diabetes mellitus without complications (principal); L60.3 Nail dystrophy; M21.40 Flat foot [pes planus] (acquired), unspecified foot; L84 Corns and callosities; M19.079 Primary osteoarthritis, unspecified ankle and foot; M19.072 Primary osteoarthritis, left ankle and foot; Z79.84 Long term (current) use of oral hypoglycemic drugs; Z79.4 Long term (current) use of insulin
CPT/HCPCS: 11055; 11721

== ENCOUNTER 2023-04-22 09:44 | Outpatient (CLI) | payer MEDICARE, MEDICAID, SELFPAY ==
[2021-09-25 16:05] VITALS: BP 154/81; BMI 45.6
--- NOTE | 2023-04-22 09:53 | CT_ITS ---
WS: [id number] CT NECK TECHNIQUE: Contrast-enhanced CT of the neck with coronal and sagittal reformatted images. CLINICAL INFORMATION: GLOSSODYNIA/PAIN IN THROAT/DYSPHAGIA,OROPHARYNGEAL PHASE COMPARISON: CT 12/21/2022 DLP: 234.[address] scans at [facility] use at least one of these dose optimization techniques: automated e xposure control; mA and/or kV adjustment per patient size (includes targeted exams where dose is matc hed to clinical indication); or iterative reconstruction. FINDINGS: Mucosal thickening and partial opacification of the mastoid air cells. Opacification of the RIGHT epitympanum. Normal posterior nasopharynx. Normal parapharyngeal fat. Paranasal sinuses are we ll aerated. Tongue base is normal in appearance. Normal [place] tonsils. Normal parapharyngeal fat. Normal posterior nasopharynx. No evidence of supraglottic or glottic mass. Normal subglottic airway. Normal parotid glands. Normal submandibular glands. No cervical lymphadeno gio. Lung apices are well aerated. Stable 1.3 cm RIGHT thyroid nodule. IMPRESSION: 1. No suspicious or acute neck findings. 2. Stable 1.3 cm RIGHT thyroid nodule. 3. Normal salivary glands. 4. No evidence of supraglottic or glottic mass. 5. Partial opacification of the mastoid air cells bilaterally. Partial opacification RIGHT epitympan um.
[2023-04-22] MEDS: iohexol 350 mg/mL 500 mL Btl (per mL) IV (10:19)
== END 2023-04-22 09:45 | disposition home or self-care (01) ==
LOC: RAD 09:45
PROVIDERS: PCP Nurse Practitioner Family; Visit Provider Otolaryngology
DX: K14.6 Glossodynia (principal); R13.12 Dysphagia, oropharyngeal phase; R07.0 Pain in throat; E04.1 Nontoxic single thyroid nodule; Z47.89 Encounter for other orthopedic aftercare; Z87.891 Personal history of nicotine dependence
CPT/HCPCS: 70491; 99024; Q9967

== ENCOUNTER → 2023-04-29 14:39 | Outpatient (BNVA) | payer MEDICARE, MEDICAID, OTHER, SELFPAY ==
[2021-09-25 16:05] VITALS: BP 154/81; BMI 45.6
== END ==
PROVIDERS: PCP Nurse Practitioner Family; Visit Provider Physician Assistant
DX: Z47.89 Encounter for other orthopedic aftercare (principal)
CPT/HCPCS: 72100; 99024

== ENCOUNTER 2023-05-08 11:21 | Outpatient (RCR) | payer MEDICARE, SELFPAY ==
[2021-09-25 16:05] VITALS: BP 154/81; BMI 45.6
== END 2023-05-31 23:59 | disposition home or self-care (01) ==
LOC: SPT 11:21
PROVIDERS: PCP Nurse Practitioner Family; Visit Provider Student in an Organized Health Care Education/Training Program
DX: M75.42 Impingement syndrome of left shoulder (principal)
CPT/HCPCS: 97110; 97161

== ENCOUNTER → 2023-05-20 07:43 | Outpatient (BNVA) | payer MEDICARE, MEDICAID, SELFPAY ==
[2021-09-25 16:05] VITALS: BP 154/81; BMI 45.6
== END ==
PROVIDERS: PCP Nurse Practitioner Family; Visit Provider Student in an Organized Health Care Education/Training Program
DX: M25.511 Pain in right shoulder (principal); Z98.890 Other specified postprocedural states; M75.42 Impingement syndrome of left shoulder; M77.8 Other enthesopathies, not elsewhere classified; M19.011 Primary osteoarthritis, right shoulder; M19.012 Primary osteoarthritis, left shoulder
CPT/HCPCS: 99213

== ENCOUNTER → 2023-05-29 11:15 | Outpatient (BNVA) | payer MEDICARE, MEDICAID, SELFPAY ==
[2021-09-25 16:05] VITALS: BP 154/81; BMI 45.6
== END ==
PROVIDERS: PCP Nurse Practitioner Family; Visit Provider Physician Assistant
DX: E66.01 Morbid (severe) obesity due to excess calories (principal); Z47.89 Encounter for other orthopedic aftercare; Z68.42 Body mass index [BMI] 45.0-49.9, adult
CPT/HCPCS: 99024

== ENCOUNTER 2023-06-01 06:00 | Outpatient (RCR) | payer MEDICARE, SELFPAY ==
[2021-09-25 16:05] VITALS: BP 154/81; BMI 45.6
== END 2023-07-01 23:59 | disposition home or self-care (01) ==
LOC: SPT 06:00
PROVIDERS: PCP Nurse Practitioner Family; Visit Provider Student in an Organized Health Care Education/Training Program
DX: M54.50 Low back pain, unspecified (principal); G89.29 Other chronic pain
CPT/HCPCS: 97110

== ENCOUNTER 2023-06-13 07:56 | Outpatient (CLI) | payer MEDICARE, MEDICAID, SELFPAY ==
[2021-09-25 16:05] VITALS: BP 154/81; BMI 45.6
--- NOTE | 2023-06-13 08:00 | MR_ITS ---
WS: [id number] MRI RIGHT SHOULDER NONCONTRAST TECHNIQUE: Sagittal T2, coronal T1, T2 and proton density imaging. Axial gradient PDE imaging. CLINICAL INFORMATION: right shoulder pain, previous right shoulder surgery COMPARISON: MRI 07/29/2022 FINDINGS: Interval biceps tendon rotator cuff repair with anchors in the humeral head. Moderate degenerative ri ghtist at the AC joint with mild fluid and edema. Subacromial space is preserved. Normal distal supra spinatus and infraspinatus. Normal teres minor. Surgical repair of the subscapularis tendon. Suscepti bility artifact from anchors degrade images in this area. Evidence of prior postoperative changes biceps tendon repair. No evidence of recurrent rotator cuff tear. No significant joint effusion. Somewhat diminutive joint capsule can be seen with adhesive caps ulitis in the appropriate clinical setting. Normal bone marrow signal in the glenoid. Glenoid labrum appears grossly normal. No other suspicious findings. IMPRESSION: 1. No evidence of recurrent rotator cuff tear. 2. Moderate joint arthritis of the AC joint with mild edema. Subacromial space is preserved. 3. Distal supraspinatus and infraspinatus appear intact. 4. Postoperative changes subscapularis and biceps tendon repair. Susceptibility artifact from hardwa re degrades images in these areas. 5. Somewhat diminutive joint capsule visually can be seen with adhesive capsulitis in the appropriat e clinical setting 6. No other suspicious findings.
== END 2023-06-13 07:57 | disposition home or self-care (01) ==
LOC: RAD 07:59
PROVIDERS: PCP Nurse Practitioner Family; Visit Provider Student in an Organized Health Care Education/Training Program
DX: M19.011 Primary osteoarthritis, right shoulder (principal); Z98.890 Other specified postprocedural states; M75.01 Adhesive capsulitis of right shoulder
CPT/HCPCS: 73221

== ENCOUNTER → 2023-06-17 11:00 | Outpatient (BNVA) | payer MEDICARE, MEDICAID, SELFPAY ==
[2021-09-25 16:05] VITALS: BP 154/81; BMI 45.6
== END ==
PROVIDERS: PCP Nurse Practitioner Family; Visit Provider Orthopaedic Surgery
DX: M47.816 Spondylosis without myelopathy or radiculopathy, lumbar region (principal); Z98.890 Other specified postprocedural states; M48.062 Spinal stenosis, lumbar region with neurogenic claudication
CPT/HCPCS: 72100; 99214

== ENCOUNTER 2023-06-26 10:02 | Outpatient (CLI) | payer MEDICARE, MEDICAID, SELFPAY ==
[2021-09-25 16:05] VITALS: BP 154/81; BMI 45.6
[2023-06-26 10:58] LABS: Estmated Average Glucose 166; Hemoglobin A1C 7.4 % (4.0-6.0)
[2023-06-26 11:02] LABS: Creatinine Urine, Random 54 mg/dL (28-217); Microalbum Creatinine Ratio Ur 19 mg/dL (0-20); Microalbumin Random Urine 1 ug/dL (0-20)
[2023-06-26 11:11] LABS: Alanine Aminotransferase 14 U/L (0-33); Albumin Level 4.1 g/dL (3.5-5.2); Alkaline Phosphatase 70 U/L (35-105); Aspartate Amino Transferase 13 U/L (0-32); Blood Urea Nitrogen 17 mg/dL (6-20); Calcium 9.3 mg/dL (8.5-10.5); Carbon Dioxide 25 mmol/L (22-29); Chloride 103 mmol/L (98-107); Chol HDL Ratio 3.07 mg/dL (0.0-4.40); Cholesterol 132 mg/dL (0-200); Free T4 Free Thyroxine 1.22 ng/dL (0.82-1.77); Globulin 3.1 g/dL (1.3-4.6); Glomerular Filtration Rate 107.2 mL/min (90-130); Glucose 139 mg/dL (65-115); HDL Cholesterol 43 mg/dL (60-100); LDL Cholesterol Calculated 46 mg/dL (50-129); LDL HDL Ratio 1.07 RATIO (0.00-3.22); Osmolality Calculated 290 mOsm/kg (285-295); Sodium 138 mmol/L (136-145); Thyroid Stimulating Hormone 1.89 uIU/mL (0.27-4.20); Total Bilirubin 0.2 mg/dL (0.15-1.2); Total Protein 7.2 g/dL (6.6-8.7); Triglycerides 216 mg/dL (0-150)
== END 2023-06-26 10:03 | disposition home or self-care (01) ==
PROVIDERS: PCP Nurse Practitioner Family; Visit Provider Internal Medicine
DX: E11.9 Type 2 diabetes mellitus without complications (principal); E03.9 Hypothyroidism, unspecified; E78.2 Mixed hyperlipidemia; N91.2 Amenorrhea, unspecified
CPT/HCPCS: 36415; 80053; 80061; 82044; 83036; 84439; 84443

== ENCOUNTER → 2023-07-01 09:44 | Outpatient (BNVA) | payer MEDICARE, MEDICAID, SELFPAY ==
[2021-09-25 16:05] VITALS: BP 154/81; BMI 45.6
== END ==
PROVIDERS: PCP Nurse Practitioner Family; Visit Provider Internal Medicine
DX: E11.9 Type 2 diabetes mellitus without complications (principal); E03.9 Hypothyroidism, unspecified; E78.2 Mixed hyperlipidemia; Z79.890 Hormone replacement therapy; Z79.4 Long term (current) use of insulin
CPT/HCPCS: 99214

== ENCOUNTER → 2023-07-08 10:19 | Outpatient (BNVA) | payer MEDICARE, MEDICAID, SELFPAY ==
[2021-09-25 16:05] VITALS: BP 154/81; BMI 45.6
== END ==
PROVIDERS: PCP Nurse Practitioner Family; Visit Provider Orthopaedic Surgery
DX: M48.062 Spinal stenosis, lumbar region with neurogenic claudication; M25.511 Pain in right shoulder; M75.42 Impingement syndrome of left shoulder; M77.8 Other enthesopathies, not elsewhere classified
CPT/HCPCS: 99213; 99214

== ENCOUNTER 2023-07-17 08:28 | Outpatient (CLI) | payer MEDICARE, MEDICAID, SELFPAY ==
[2021-09-25 16:05] VITALS: BP 154/81; BMI 45.6
--- NOTE | 2023-07-17 09:30 | MR_ITS ---
WS: [id number] MRI LUMBAR SPINE NONCONTRAST HISTORY: lumbar pain COMPARISON: 02/13/2023 TECHNIQUE: Sagittal and axial multisequence imaging is submitted. Artifact from patient's known spinal stimulator. Normal posterior lumbar alignment. Disc spaces are mildly narrowed. Conus terminates normally at L1-2 disc level. L1-L2: Mild facet arthritis, RIGHT greater than LEFT. L2-L3: Mild annular disc bulging asymmetric to the RIGHT. There does appear to be a shallow RIGHT for aminal disc protrusion. Mild central, bilateral subarticular recess and foraminal stenosis. There is slightly greater contact on the RIGHT L2 and L3 nerve roots. Similar to the prior study. L3-L4: Mild diffuse annular disc bulging with small annular fissures. Mild impingement upon the LEFT subarticular recess. Mild central stenosis. Mild LEFT foraminal stenosis. There is slightly greater d isc contact on the LEFT L4 exiting nerve root. L4-L5: Mild disc bulging with moderate central canal stenosis. Disc impinges upon the traversing L5 n erve roots. Moderate to severe facet joint arthritis with ligamentum flavum hypertrophy. Mild RIGHT f oraminal stenosis. Disc contacts the exiting RIGHT L4 nerve root. Although small there does appear to be a laminectomy defect posteriorly with debridement of the ligamentum flavum. The stenosis describe d on the recent MRI has improved. L5-S1: Bilateral facet arthritis. No stenosis. IMPRESSION: 1. L3-4: Mild central stenosis with mild LEFT foraminal stenosis. Slightly greater disc contact on th e LEFT L4 nerve root as compared to the prior study. 2. L4-5: Moderate central stenosis with disc impinging upon the traversing L5 nerve roots. Moderate t o severe facet arthritis with mild RIGHT foraminal narrowing. 3. L2-3: Mild central, bilateral subarticular recess and foraminal stenosis. Slightly greater disc co ntact on the RIGHT L2 and L3 nerve roots. 4. Recently described stenosis at L4-5 has improved with the laminectomy defect. Ligamentum flavum al so appears to been debrided.
== END 2023-07-17 08:29 | disposition home or self-care (01) ==
LOC: RAD 08:29
PROVIDERS: PCP Nurse Practitioner Family; Visit Provider Orthopaedic Surgery
DX: E11.42 Type 2 diabetes mellitus with diabetic polyneuropathy (principal); L60.3 Nail dystrophy; L84 Corns and callosities; M19.072 Primary osteoarthritis, left ankle and foot; M77.42 Metatarsalgia, left foot; Z79.4 Long term (current) use of insulin; M43.16 Spondylolisthesis, lumbar region; Z01.818 Encounter for other preprocedural examination; Z98.890 Other specified postprocedural states; M48.062 Spinal stenosis, lumbar region with neurogenic claudication
CPT/HCPCS: 11055; 11721; 36415; 72148; 80053; 81003; 83036; 85025; 99213; 99214

== ENCOUNTER 2023-07-29 13:23 | Outpatient (CLI) | payer MEDICARE, MEDICAID, SELFPAY ==
[2021-09-25 16:05] VITALS: BP 154/81; BMI 45.6
--- NOTE | 2023-07-29 13:45 | US_ITS ---
WS: [id number] ULTRASOUND SOFT TISSUES LEFT foot. HISTORY: evaluate for mortons neuroma COMPARISON: None available. TECHNIQUE: 2-D and color Doppler imaging is submitted. Ultrasound is directed at the third and fourth intermetatarsal spaces. No masses or neuroma identifie d. There is no fluid or evidence for bursitis. IMPRESSION: Negative ultrasound third and fourth intertarsal spaces LEFT foot.
== END 2023-07-29 13:24 | disposition home or self-care (01) ==
LOC: RAD 13:23
PROVIDERS: PCP Nurse Practitioner Family; Visit Provider Podiatrist Foot & Ankle Surgery
DX: M79.672 Pain in left foot (principal)
CPT/HCPCS: 76882

== ENCOUNTER 2023-08-22 15:05 | Inpatient (IN) | payer MEDICARE, MEDICAID, SELFPAY ==
[2021-09-25 16:05] VITALS: BP 154/81; BMI 45.6
[2023-08-22] VITALS (36 sets, daily range): BP systolic 121–166; BP diastolic 52–86; PULSE 81–105; RESP 12–20; TEMP 36.2–37.1; O2SAT 90–97; BMI 43.0
--- NOTE | 2023-08-22 | XR_ITS ---
WS: [id number] INTRAOPERATIVE TECHNIQUE: 3 Spot fluoroscopic images for intraoperative purposes. FLUOROSCOPY TIME: 14 seconds CLINICAL INFORMATION: L4-L5 fusion, or pic COMPARISON: None. FINDINGS: Intraoperative changes L4-5 pedicle screw fixation with interbody fusion graft. Hardware appears in g ood position. IMPRESSION: Images obtained for intraoperative purposes.
--- NOTE | 2023-08-22 08:32 | W.PM.OPSUD ---
Surgery/Procedure H&P Update DATE OF PROCEDURE: August 22, 2023 DATE H&P PERFORMED: 08/07/23 H&P UPDATE INFORMATION: I have reviewed H&P completed within last 30 days, I have examined patient prior to procedure and No changes to prior documentation PLANNED PROCEDURE: Operation Date: 08/22/23 10:05 Proposed Procedures p Posterior Lumbar Interbody Fusion PLIF L4-5(Not Applicable) - Leo Nowak, DO
[2023-08-22] MEDS: sodium chloride 0.9% 1,000 ML 30 ML IV (09:00)
[2023-08-22 09:05] LABS: Glucose Point of Care 158 mg/dL (70-110)
[2023-08-22] MEDS: HYDROmorphone 1 mg/mL INJ 1 mL 0.5 MG IVP ×2 (09:05→14:39)
--- NOTE | 2023-08-22 09:07 | ANES.PREANE2 ---
Pre-Anesthetic Assessment Height/Weight: Height 1.6 m Weight 110.223 kg Temp Pulse Resp BP Pulse Ox O2 Del Method 97.2 F L 88 18 133/59 95 Room Air 08/22/23 08:48 08/22/23 08:48 08/22/23 09:05 08/22/23 08:48 08/22/23 08:48 08/22/23 08:48 Preop Diagnosis: Spondylolisthesis L4-5 Operation Date: 08/22/23 10:05 Proposed Procedures p Posterior Lumbar Interbody Fusion PLIF L4-5(Not Applicable) - Leo Nowak DO Familial anesthetic complications: none Was Beta Sandeep taken within 24 hours: N/A Was Clonidine taken within 24 hours: N/A Last intake: Intake Last Liquid Date 08/21/23 Last Liquid Time 23:00 Last Solid Date 08/21/23 Last Solid Time 23:00 Social No alcohol and No tobacco Exam alert, oriented x 3, clear to auscultation bilaterally and regular rate & rhythm Airway Submandibular: within normal limits Cervical ROM: within normal limits Mallampati: Class II Dentition: full Pulmonary Sleep Apnea CV/HEM Hypertension GI Gastroesophageal Reflux Disease Metabolic Diabetes Mellitus, Hyperlipidemia, Morbid Obesity and Thyroid Disease Musc/skel Lower Back Pain and Osteoarthritis/DJD Neuropsych Anxiety, Depression and Neuropathy Anesthetic Plan ASA status: 3 Anesthesia: General Medications/Allergies Home Medications Medication Instructions Recorded Confirmed Last Taken Type mecobalamin (vitamin B12) 1,000 1,000 mcg PO DAILY 02/29/20 08/22/23 08/21/23 History mcg chewable tablet furosemide 20 mg tablet (Lasix) 20 mg PO QAM PRN Edema 08/14/20 08/22/23 03/06/23 History methocarbamol 500 mg tablet 2,000 mg PO QID PRN Spasms 09/21/20 08/22/23 08/20/23 History dapagliflozin propanediol 10 mg 10 mg PO DAILY #90 tabs 09/27/20 08/22/23 08/21/23 Rx tablet (Farxiga) lisinopril 2.5 mg tablet 2.5 mg PO DAILY 09/13/21 08/22/23 08/21/23 History dicyclomine 10 mg capsule 10 mg PO QID 01/04/22 08/22/23 08/21/23 History oxybutynin chloride 5 mg tablet 5 mg PO BID 01/04/22 08/22/23 08/21/23 History pantoprazole 40 mg tablet,delayed 40 mg PO BID #180 tabs 01/23/22 08/22/23 08/20/23 Rx release (Protonix) medical marijuana 1 applicator as directed DAILY 04/17/22 08/22/23 08/21/23 History pregabalin 100 mg capsule (Lyrica) 100 mg PO TID 04/17/22 08/22/23 08/21/23 History fenofibrate micronized 200 mg 200 mg PO DAILY 08/29/22 08/22/23 08/21/23 History capsule Diabetic Shoes with 3 pairs of #1 ea 10/15/22 07/17/23 Unknown Rx inserts multivit with min #53-FA 200 1 cap PO DAILY 12/31/22 08/22/23 08/20/23 History mcg-vit K 1,000 mcg-coQ10 10 mg capsule (DEKAs Plus (folic acid)) diclofenac sodium 1 % topical gel 4 g topical QID #100 grams 01/23/23 08/22/23 03/06/23 Rx (Arthritis Pain (diclofenac)) insulin glargine 100 unit/mL (3 80 unit (0.8 mL) SUBCUT DAILY #75 02/20/23 08/22/23 08/20/23 Rx mL) subcutaneous pen (Lantus mL Solostar U-100 Insulin) FreeStyle Zain 2 Sensor (flash #6 ea 02/24/23 07/17/23 Unknown Rx glucose sensor) glucagon 1 mg solution for See Rx Instructions .Route 03/20/23 08/22/23 Unknown Rx injection (Glucagon Emergency Kit) .COMPLEX #1 ea Novolog FlexPen U-100 Insulin 100 10 unit (0.1 mL) SUBCUT TID 30 07/01/23 08/22/23 Unknown Rx unit/mL (3 mL) subcutaneous days #9 mL (insulin aspart U-100) amitriptyline 100 mg tablet 100 mg PO .HS 30 days #30 tabs 07/01/23 08/22/23 08/20/23 Rx duloxetine 60 mg capsule,delayed 60 mg PO QAM 30 days #30 caps 07/01/23 08/22/23 08/21/23 Rx release liraglutide 0.6 mg/0.1 mL (18 mg/3 1.8 mg SUBCUT DAILY 07/01/23 08/22/23 08/20/23 History mL) subcutaneous pen injector (Victoza 3-Kolby) paroxetine HCl 30 mg tablet (Paxil) 45 mg (1.5 x 30 mg) PO DAILY #45 07/01/23 08/22/23 08/20/23 Rx tabs topiramate 50 mg tablet 50 mg PO DAILY 30 days #30 tabs 07/01/23 08/22/23 08/21/23 Rx trazodone 100 mg tablet 100 mg PO .qhs 30 days #30 tabs 07/01/23 08/22/23 08/20/23 Rx levothyroxine 25 mcg tablet See Rx Instructions .Route 07/04/23 08/22/23 08/21/23 Rx .COMPLEX #270 tabs front wheeled walker #1 ea 07/23/23 Unknown Rx ropinirole 4 mg tablet 4 mg PO BID 08/07/23 08/22/23 08/22/23 History oxycodone 5 mg capsule 5 mg PO Q4H PRN pain 7 days #20 08/08/23 08/22/23 Unknown Rx caps Allergies Allergy/AdvReac Type Severity Reaction Status Date / Time No Known Allergies Allergy Verified 08/22/23 08:42 Current Medications Generic Name Dose Route Start Last Admin Trade Name Freq PRN Reason Stop Dose Admin Hydromorphone HCl 0.5 mg 08/22/23 08:33 08/22/23 09:05 Hydromorphone 1 Mg/Ml Inj 1 Ml IVP 0.5 mg ONCE PRN Administration For preop pain/anxiety Sodium Chloride 1,000 mls @ 30 mls/hr 08/22/23 08:45 08/22/23 09:00 Sodium Chloride 0.9% IV 08/23/23 08:44 30 mls/hr .Q24H MISSY Administration PFSH Anesthesia Medical History Metatarsalgia, left foot Essential hypertension Encounter for pre-operative examination Left upper extremity swelling Mass of left upper extremity Post-menopausal bleeding secondary amenorrhea not post menopausal bleeding Psychiatric care Problems related to lack of adequate sleep Problems related to lack of adequate sleep Cluster B personality disorder in adult MDD (major depressive disorder) 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 Chronic post-traumatic stress disorder (PTSD) Obstructive sleep apnea Generalized anxiety disorder Major depressive disorder, recurrent episode with mood-congruent psychotic features GI bleed due to NSAIDs History of gallbladder disease Diabetes mellitus Surgical History S/P insertion of spinal cord stimulator Carpal tunnel syndrome on right 2009 S/P cholecystectomy 2002 Family History Mother Heart disease Stroke Diabetes Brother Diabetes Grandmother Stroke maternal Social History Smoking and tobacco/nicotine status: former use of tobacco/nicotine Alcohol intake: never Substance/Drug Use: never Data Anesthesia Cardiac Studies: Echocardiogram Ultrasound 02/20/21
[2023-08-22] MEDS: ceFAZolin 2,000 MG in sodium chloride 0.9% (plus) 50 ML 100 MG IV ×2 (10:01→17:19)
[2023-08-22] MEDS: lidocaine-epi 2% 20 mL INJ INJECTION (10:38)
[2023-08-22] MEDS: heparin, porcine 1,000 unit/mL INJ 10 mL 10000 UNIT XX (10:49)
[2023-08-22] MEDS: vancomycin 1,000 MG SDV 1000 MG XX (10:52)
--- NOTE | 2023-08-22 12:58 | SUR.PHASEI ---
12:40 RECEIVED PT FROM OR STAFF. LETHARGIC BUT RESPONDS TO VERBAL.AIRWAY PATENT. PT VENTILATING WELL. ST ON MONITOR . VAZQUEZ AND HEMOVAC PATENT. 12:45 ORAL AIRWAY DC'ED. AIRWAY PATENT. ROM AND SENSATION ALL 4 EXTREMITIES.
[2023-08-22] MEDS: fentaNYL 50 mcg/mL INJ 2mL IVP ×2 (13:04→13:22)
--- NOTE | 2023-08-22 13:07 | SUR.PHASEI ---
13:04 MEDICATED FOR BACK PAIN.
--- NOTE | 2023-08-22 13:11 | P.OP_ITS ---
Operative Report Date of procedure: August 22, 2023 Pre-op diagnosis: Lumbar stenosis with neurogenic claudication L4-5 spondylolisthesis Post-op diagnosis: same Procedure done: 1. L4/5 Interbody fusion with posterolateral fusion 2. Instrumentation L4/5 3. Cage at L4/5 4. L4-5 laminectomy with partial facetectomies 5. use of autograft from same incision 6. allograft 7. Bone marrow aspirate from right iliac crest 8. Use of computer navigation stereotactic for the spine Surgeon: Leo Nowak DO Credit Advisor: Yasmani Williamson Credit Advisor: The surgical rn, Yasmani Williamson, EMELI was needed for his expertise under the microscope. He was important and necessary throughout the procedure to complete in a safe and timely manner. He assisted with patient positioning prepping and draping tissue retraction suctioning of the operative field protection of the dural sac and tissue closure Estimated blood loss (mL): 400 Procedure: 1. L4/5 Interbody fusion with posterolateral fusion 2. Instrumentation L4/5 3. Cage at L4/5 4. L4-5 laminectomy with partial facetectomies 5. use of autograft from same incision 6. allograft 7. Bone marrow aspirate from right iliac crest 8. Use of computer navigation stereotactic for the spine Patient is brought to the operative suite. After undergoing anesthesia, the patient had neuro monitoring attached. Patient was then placed in the prone position on the [place]mer table. All areas of impingement were well-padded. Patient was then prepped and draped in the normal sterile fashion. Skin incision was then made over the L 4/5 disc space. Subperiosteal dissection was made out to the transverse processes of L4 and L5. The [employer] bone marrow aspirate kit was used to aspirate bone marrow aspirate. This was done by using the sharp probe to open up the bone. As piration was performed and then the blunt probe was then used to dissect down to through the bone tunnel. An aspirating well drawn back a millimeter approximately 20 cc of bone marrow aspirate was used. Admixed with the allograft and autograft bone that will be used. Next tension was brought to placing the fiducial for the computer navigation. This was done by putting 2 pins into the right iliac crest which were later removed. Then the fiducial was attached and then the C-arm was brought in and spun around the patient. Information from the C-arm was then loaded the computer and later used for the computer navigation and placement of pedicle screws. The technique for placing the pedicle screws was to use a drill followed by the gearshift probe linked to computer navigation. Followed by the ball probe to feel the superior inferior medial lateral bowers of the pedicles. Then placement of the screws with computer navigation. Was done at each pedicle. Screws were placed at L4 bilaterally and L5. Next attention was brought to performing the laminectomy ofL4. This was done using the high-speed bur Kerrisons and curettes. Once the lamina was removed and then attention was brought to performing a partial facetectomy on the contralateral side. This was done again using the high-speed bur curettes and Kerrisons. The ligamentum flavum was taken down bilaterally from L4 to L5. Attention was then brought to the facet on the ipsilateral side. The facet was taken down. The L5 nerve was decompressed as it passed around the L5 pedicle. The laminectomy was done for purposes of decompressing the nerve as well as placement of the cage. The L4 nerve was identified as it traversed through the L4 foramen. The thecal sac was identified and retracted. The L4/5 disc base w as identified. Using a knife the disc base was opened. And then sequential otilio were placed. The first shaver was a 6 and the last shaver was a 8. Using a pituitary and down going curette the endplates were scraped and disc material was removed from the space. Once adequate decompression of the disc base was felt to be had. Osteoamp sponge was packed into the anterior aspect of the disc base. Then a size 9 cage from [employer] was placed after packing osteoamp into the cage. While placing the cage the thecal sac and L5 nerve was protected. C arm was used to ensure that the cages placed in the appropriate position. Attention was then brought to attaching the rods to the screws placed in the L4 bilaterally and L5 bilaterally. Caps were torqued into position. Locking the construct in place. Wound was copiously irrigated and then attention was brought to decorticating the facets and transverse processes laterally. Bone that was taken down from the lamina was used along with osteoamp fibers and sponges were packed into the lateral gutters along the facet joints. This was done bilaterally. Wound was then closed in a layered fashion starting with the thoracolumbar fascia. 0-vicryl was used the sub cutaneous tissue was closed with 2-0 vicryl and skin with 4-0 monocryl. Glue was then used to seal the skin and a steril dressing was applied. Patient was then placed in the supine position. The endotracheal tube was removed and patient was transferred to the PACU in stable condition.
[2023-08-22 13:21] LABS: Glucose Point of Care 212 mg/dL (70-110)
--- NOTE | 2023-08-22 13:43 | SUR.PHASEI ---
13:20 RE MEDICATED FRO PAIN. A+O X3. CHANGED FROM MASK TO NASAL CANULAR.
--- NOTE | 2023-08-22 14:03 | ANE.PACU2 ---
Inpatient post-anesthesia follow up: Airway intact: Yes Vital signs: Temperature 98.8 F Pulse Rate 86 Respiratory Rate 18 Blood Pressure 143/75 Pulse Oximetry 91 Oxygen Delivery Me thod Nasal Cannula Oxygen Flow Rate 4 Fraction of Inspir ed Oxygen Hydration adequate: Yes Nausea and vomiting: No Pain level: 3 Mental status: Baseline
[2023-08-22] MEDS: pregabalin 100 mg Capsule PO ×2 (17:17→20:07)
[2023-08-22] MEDS: pantoprazole DR 40 mg Tablet PO (17:17)
[2023-08-22] MEDS: docusate sodium 100 mg Capsule PO (17:17)
[2023-08-22] MEDS: oxyCODONE-APAP 10-325 mg Tablet PO ×2 (17:17→23:36)
[2023-08-22] MEDS: oxybutynin 5 mg Tablet PO (17:18)
[2023-08-22] MEDS: lactated ringers 1,000 ML 90 ML IV (17:19)
[2023-08-22] MEDS: ropinirole 2 mg Tablet 4 MG PO (17:34)
[2023-08-22] MEDS: dicyclomine 10 mg Capsule PO ×2 (17:34→20:10)
[2023-08-22] MEDS: insulin lispro 100 unit/1 mL 10 UNIT SUBCUT (17:40)
[2023-08-22] MEDS: trazodone 100 mg Tablet PO (20:07)
[2023-08-22] MEDS: amitriptyline 25 mg Tablet 100 MG PO (20:07)
[2023-08-22] MEDS: ketorolac 30 mg/mL INJ IVP (20:56)
[2023-08-22] MEDS: methocarbamol 500 mg Tablet 2000 MG PO (23:37)
[2023-08-23] VITALS: BP 139/67; PULSE 83; RESP 18; TEMP 36.6; O2SAT 93
[2023-08-23] MEDS: ceFAZolin 2,000 MG in sodium chloride 0.9% (plus) 50 ML 100 MG IV ×2 (02:57→09:21)
[2023-08-23 04:00] VITALS: BP 128/68; PULSE 75; RESP 18; TEMP 36.6; O2SAT 92
[2023-08-23] MEDS: ketorolac 30 mg/mL INJ IVP (05:13)
--- NOTE | 2023-08-23 05:38 | PC.NURSE ---
Attempted to call Dr. Nowak and Dr. Williamson to get orders adujsted for pts requip due to her being in pain. Called both twice with no answer.
[2023-08-23 06:06] VITALS: RESP 16; O2SAT 94
[2023-08-23] MEDS: oxyCODONE-APAP 10-325 mg Tablet PO (06:06)
[2023-08-23] MEDS: duloxetine 60 mg Capsule PO (06:07)
[2023-08-23] MEDS: levothyroxine 50 mcg Tablet 25 MCG PO (06:07)
[2023-08-23] MEDS: lactated ringers 1,000 ML 90 ML IV (06:08)
[2023-08-23] MEDS: ropinirole 2 mg Tablet 4 MG PO (07:02)
[2023-08-23 07:31] VITALS: BP 118/54; PULSE 79; RESP 16; TEMP 36.8; O2SAT 93
--- NOTE | 2023-08-23 08:02 | P.DS_ITS ---
Discharge Providers Date of Admission: 08/22/23 15:05 Date of Discharge: August 23, 2023 Attending Provider at Admission: Leo Nowak DO Attending Provider at Discharge: Leo Nowak DO Primary Care Provider: BIJAN Beckett Reason for Visit Reason for Visit: 33322 Physical Exam Narrative: Pain control doing well 5 5 strength leg pain is gone Urinary Catheter Management: Ramsay Latex: Cath Placed During This Visit: yes Reason for Continuing Indwelling Catheter: Perioperative Use in Selected Surgeries Urinary Catheter Date of Insertion: 08/22/23 Urinary Catheter Time of Insertion: 10:15 Discharge Data Studies Completed and Pending Completed Studies During Hospitalization Category Date Time Status XR lumbar spine 1V 59703 Routine Exams 08/22/23 Completed Pending at discharge Category Date Time Status C-arm Fluoroscopy 77145 Routine Exams 08/22/23 08:34 Taken Laboratory Results POC Glucose 212 mg/dL (70-110) H 08/22/23 13:17 Vitals Last Vital Signs Temp 98.2 F 08/23/23 07:31 Pulse 79 08/23/23 07:31 Resp 16 08/23/23 07:31 BP 118/54 08/23/23 07:31 Pulse Ox 93 08/23/23 07:31 O2 Del Method Nasal Cannula 08/22/23 16:45 O2 Flow Rate 2 08/22/23 16:45 Discharge Plan Discharge Patient Disposition: Home Condition: Stable Prescriptions: Continued dicyclomine 10 mg capsule 10 mg PO QID methocarbamol 500 mg tablet 2,000 mg PO QID PRN (Reason: Spasms) pregabalin [Lyrica] 100 mg capsule 100 mg PO TID furosemide [Lasix] 20 mg tablet 20 mg PO QAM PRN (Reason: Edema) lisinopril 2.5 mg tablet 2.5 mg PO DAILY oxybutynin chloride 5 mg tablet 5 mg PO BID mecobalamin (vitamin B12) 1,000 mcg tablet,chewable 1,000 mcg PO DAILY ropinirole 4 mg tablet 4 mg PO BID medical marijuana 1 applicator as directed DAILY DEKAs Plus (folic acid) 200 mcg-1,000 mcg-10 mg capsule 1 cap PO DAILY Victoza 3-Kolby 0.6 mg/0.1 mL (18 mg/3 mL) pen injector 1.8 mg SUBCUT DAILY insulin aspart U-100 [Novolog FlexPen U-100 Insulin] 100 unit/mL (3 mL) insulin pen 10 unit SUBCUT TID 30 Days Qty: 9 0RF (DME) Diabetic Shoes with 3 pairs of inserts See Rx Instructions .Route .MEDSUPPLY Qty: 1 0RF Rx Instructions: As directed By HOME trazodone 100 mg tablet 100 mg PO .qhs 30 Days Qty: 30 3RF topiramate 50 mg tablet 50 mg PO DAILY 30 Days Qty: 30 3RF paroxetine HCl [Paxil] 30 mg tablet 45 mg PO DAILY Qty: 45 3RF duloxetine 60 mg capsule,delayed release(DR/EC) 60 mg PO QAM 30 Days Qty: 30 3RF amitriptyline 100 mg tablet 100 mg PO .HS 30 Days Qty: 30 3RF Farxiga 10 mg tablet 10 mg PO DAILY Qty: 90 3RF Rx Instructions: take 1 tablet daily pantoprazole [Protonix] 40 mg tablet,delayed release (DR/EC) 40 mg PO BID Qty: 180 3RF Rx Instructions: 340B diclofenac sodium [Arthritis Pain (diclofenac)] 1 % gel 4 g topical QID Qty: 100 2RF Rx Instructions: apply to single knee, ankle, foot; for foot includes sole/toes/top of foot Lantus Solostar U-100 Insulin 100 unit/mL (3 mL) insulin pen 80 unit SUBCUT DAILY Qty: 75 2RF Rx Instructions: INJECT 75 TO 80 UNITS DAILY, IF BLOOD SUGAR IS ABOVE 130 FOR 3 DAYS INCREASE BY 2 UNITS. MAXIMUM DOSE 80 UNITS. (DME) FreeStyle Zain 2 Sensor Kit See Rx Instructions .ROUTE .MEDSUPPLY Qty: 6 0RF Rx Instructions: change every 14 days Glucagon Emergency Kit (human) 1 mg recon soln See Rx Instructions .ROUTE .COMPLEX Qty: 1 1RF Dose Instruction: INJECT 1 MG UNDER THE SKIN (SUBCUTANEOUSLY) EVERY 20 MINUTES NEEDED FOR HYPOGLYCEMIA; UNTIL TARGET BLOOD SUGAR ATTAINED Rx Instructions: INJECT 1 MG UNDER THE SKIN (SUBCUTANEOUSLY) EVERY 20 MINUTES NEEDED FOR HYPOGLYCEMIA; UNTIL TARGET BLOOD SUGAR ATTAINED levothyroxine 25 mcg tablet See Rx Instructions .ROUTE .COMPLEX Qty: 270 0RF Dose Instruction: TAKE 1 TABLET BY MOUTH ON FRIDAY THROUGH FRIDAY AND TWO TABLETS BY MOUTH ON FRIDAY THROUGH FRIDAY Rx Instructions: TAKE 1 TABLET BY MOUTH ON FRIDAY THROUGH FRIDAY AND TWO TABLETS BY MOUTH ON FRIDAY THROUGH FRIDAY (DME) front wheeled walker See Rx Instructions .Route .MEDSUPPLY Qty: 1 0RF Rx Instructions: As directed oxycodone 5 mg tablet 5 mg PO Q4H PRN (Reason: pain) 5 Days Qty: 20 0RF fenofibrate micronized 200 mg capsule 200 mg PO DAILY Discharge Orders: Discharge Order (Routine); Ordered 08/23/23 Ordered By: Leo Nowak Discharge Diet: Advance as tolerated Discharge Activity: Limit activity as instructed Patient Instructions: Opioid Safety Activity Restrictions/Additional Instructions: Thank you for [facility] for your care! The following is a list of instructions, from your provider, to follow upon your discharge to ensure you have the optimal recovery from your recent injury orsurgery. Follow-up care is a ellis part of your treatment and safety. Be sure to make and go to all appointments, and call your doctor if you are having problems. If you do not already have a follow-up appointment made, call Dr. Nowak office in the next 1-3 days to make follow up appointment for 1 weeks at [phone]. It is also a good idea to know your test results and keep a list of the medicines you take. Medications will be prescribed for you at your provider's discretion. These medications are to be used as instructed; if they are taken more often that prescribed they will not be refilled early and in most cases will not be refilled at all. > When a refill is needed,you should contact miguel stuart 2-3 business days before your prescription runs out. Medications will NOT be refilled by geographic information systems director providers after hours! > Many pain medications contain Tylenol (Acetaminophen). Do not consume more than 4,000 mg of Tylenol per day in total with any combination ofmedications. > Pain medications can cause constipation. Please use an over the counter stool softener as directed, while taking pain medications. Consulty our local pharmacist with questions or recommendations on stool softeners. If constipation persists, contact our office or your primary care provider. > While under our care,you are not to receive pain medications or other controlled substances from any other provider unless our office is notified and approves. Any attempts to do so will result in refusal to prescribe any further pain medications and possible dismissal from our practice. ? Your wound and/or dressing should remain clean and dry for 7 days after surgery. ? Showering is permitted, however we ask that you do not take a bath, sit in a whirlpool / Jacuzzi, or go swimming for 1 month. lt wilt be necessary for you to cover your wound/dressing with plastic and tape to keep it dry. ? Walking is essential for the healing process after surgery. We would like you to slowly advance your walking. This should be done on relatively flat clear ground (inside or out) or can be done on a treadmill. Remember this goal does not have to happen all at once, slowly increase your distance and duration. This can be broken into more more than one walk per day as tolerated. Patients who walk as directed after surgery rarely require Physical Therapy. In the unlikely event this issue arises your provider will direct hospital staff to make the appropriate arrangements. ? No lifting over 5 pounds {a gallon of milk) or bending/twisting until further notice. Each of these activities places an unnecessary amount of stress onto the body and can impede the delicate healing process. > Instead of bending at the waist, keep your back straight and bend at the knees. > Instead of twisting your torso, keep your back straight and turn your entire body with your feet. ? You may sleep in any position which makes you comfortable. Many patients find comfort sleeping in a reclining chair. It is not abnormal to have difficulty sleeping for the first several weeks following your surgery. We recommend trying Benadry! or Tylenol PM as directed to help with your sleeping difficulties. Both medications are over the counter and available withoutprescription. ? NO SMOKING!!! Smoking dramatically increases the probability of developing postoperative wound infections. ? Common complaints after lumbar and/or thoracic spine surgery include, but are not limited to: numbness and/or tingling in the legs, pain around the incision and surrounding tissues, muscle spasms, or stiffness of the middle to low back. Contact our office if these symptoms persist or if an acute change occurs. ? No driving for the first 3-5days, and not while taking narcotics [] until seen at your follow-up appointment and cleared. There are no restrictions for riding on short trips, however if you take a longer trip, arrangements should be made to make regular stops to get out of the vehicle and stretch . ? Swelling is an unfortunate event that will take place with any surgery and is the primary source of your postoperative discomfort. While walking and regular approved activities helps control inflammation, there are additional steps you can take to minimizeswelling. > Place ice over the surgical site and surrounding tissue for twenty minutes, followed by applying a low/medium heat (heating pad) for an additional twenty minutes every 1-2 hours as needed for painrelief. > You may use of over the counter anti-inflammatory medications (Ibuprofen, Motrin, Aleve, Advil, etc) as directed on the package label. These types of medicines wm significantly reduce the amount of discomfort you experience after surgery from swelling. It should be noted that if you have and allergy to any of these medications, or a history of ulcers or kidney disease you should consult you primary care provider prior to starting these medic ations. Discharge Attestations Time Spent in Discharge Care*: less than 30 min Quality Metrics Clinical Quality Measures [ No reported AMI, CVA or VTE this stay] Coding Level of Care Code Acute Code for Chg Sheridan
[2023-08-23] MEDS: cyanocobalamin 1,000 mcg Tablet 1000 MCG PO (08:08)
[2023-08-23] MEDS: oxybutynin 5 mg Tablet PO (08:08)
[2023-08-23] MEDS: lisinopril 2.5 mg Tablet PO (08:08)
[2023-08-23] MEDS: dicyclomine 10 mg Capsule PO (08:08)
[2023-08-23] MEDS: pregabalin 100 mg Capsule PO (08:08)
[2023-08-23] MEDS: topiramate 25 mg Tablet 50 MG PO (08:08)
[2023-08-23] MEDS: pantoprazole DR 40 mg Tablet PO (08:08)
[2023-08-23] MEDS: docusate sodium 100 mg Capsule PO (08:09)
[2023-08-23 08:13] LABS: Glucose Point of Care 231 mg/dL (70-110)
[2023-08-23] MEDS: insulin glargine 100 units/1 mL 80 UNIT SUBCUT (09:21)
[2023-08-23] MEDS: acetaminophen 325 mg Tablet 650 MG PO (09:25)
[2023-08-23 11:35] LABS: Glucose Point of Care 244 mg/dL (70-110)
[2023-08-23 12:01] VITALS: BP 118/54; PULSE 79; RESP 16; TEMP 36.8; O2SAT 93
== END 2023-08-23 11:59 | disposition home or self-care (01) | DRG 454 ==
LOC: MEDSURG 15:15
PROVIDERS: Admitting Provider Orthopaedic Surgery; PCP Nurse Practitioner Family; Visit Provider Orthopaedic Surgery
PROC: 0SG00AJ Fusion of Lumbar Vertebral Joint with Interbody Fusion Device, Posterior Approach, Anterior Column, Open Approach (ICD-10-PCS; CPT 22612; principal; 2023-08-22 10:05)
DX: M43.16 Spondylolisthesis, lumbar region (principal); F33.9 Major depressive disorder, recurrent, unspecified; M48.062 Spinal stenosis, lumbar region with neurogenic claudication; F43.12 Post-traumatic stress disorder, chronic; M51.17 Intervertebral disc disorders with radiculopathy, lumbosacral region; F60.9 Personality disorder, unspecified; E11.9 Type 2 diabetes mellitus without complications; I10 Essential (primary) hypertension; F41.1 Generalized anxiety disorder; G47.33 Obstructive sleep apnea (adult) (pediatric); Z79.4 Long term (current) use of insulin
CPT/HCPCS: 36416; 51702; 72020; 76000; 82962; 96372; 97110; 97161; 97530; C1713; J0690; J1100; J1170; J1644; J1815; J1885; J2405; J2704; J3010; J3370; J3490; J7030; J7120

== ENCOUNTER → 2023-08-28 09:29 | Outpatient (BNVA) | payer MEDICARE, MEDICAID, SELFPAY ==
[2021-09-25 16:05] VITALS: BP 154/81; BMI 45.6
== END ==
PROVIDERS: PCP Nurse Practitioner Family; Visit Provider Physician Assistant
DX: Z98.1 Arthrodesis status (principal); Z47.89 Encounter for other orthopedic aftercare
CPT/HCPCS: 99024

== ENCOUNTER → 2023-09-25 08:30 | Outpatient (BNVA) | payer MEDICARE, MEDICAID, SELFPAY ==
[2021-09-25 16:05] VITALS: BP 154/81; BMI 45.6
== END ==
PROVIDERS: PCP Nurse Practitioner Family; Visit Provider Internal Medicine
DX: E11.9 Type 2 diabetes mellitus without complications (principal); E03.9 Hypothyroidism, unspecified; E78.2 Mixed hyperlipidemia; N91.2 Amenorrhea, unspecified; Z79.890 Hormone replacement therapy; Z79.85 Long-term (current) use of injectable non-insulin antidiabetic drugs; Z79.4 Long term (current) use of insulin; R13.10 Dysphagia, unspecified
CPT/HCPCS: 99214

== ENCOUNTER 2023-09-30 09:56 | Outpatient (CLI) | payer MEDICARE, MEDICAID, SELFPAY ==
[2021-09-25 16:05] VITALS: BP 154/81; BMI 45.6
--- NOTE | 2023-09-30 10:15 | P.DIET_ITS ---
Reason for Visit: 62631, E66.01 Person Interviewed: Patient Medical History, Labs and Background: Tamara listed: dry mouth, trouble swallowing-MBS showed she needs moisture to help swallow, GERD, DM2, SANDRITA, MDD, DEE Height: 5 ft 3 in Weight: 246 lb BMI: 43.7 kg/m2 IBW: 115 lbs Weight History: Tamara doesn't remember how much she weighed as a child. In high school she weighed around 285lbs.Around 1999 she got down to 180lbs, found out she was in 2000 and eventually gained back to around 280. Concerns and Goals: She wants to eat better - we did discuss 10% weight loss. Sleep Hygiene: Sleep is an issue. Tamara said she sleeps for 3-4 hours, then is back up. Physical Activity: Exercise is hare d/t her back issues. After 5 minutes of walking she is in pain. GI Symptoms: Constipation and Diarrhea Feeding Issues: Difficulty Swallowing and Other - Define Below Other Feeding Issues: She struggles with constipation and diarrhea. Dry mouth contributes to her swallowing issues. Food Allergies and Sensitivities: She said NKA to food, but later commented that milk makes her gassy but also drinks 1-2 glasses milk/day? 24 Hour Recall: Breakfast Time: 3:30am Nibbled on cheese Snack Time: 4:00am glass of milk/ glass OJ/ water/ Pepsi Lunch Time: 6:45am sausage patties + eggs + tortilla Snack Time: am and pm nibbled on Smarties and Whoppers Dinner Time: 4:45 fried potatoes, smoked sausage + cheese + onions Snack Time: evening more Whoppers and Smarties Eating Out: Tamara said they ate out a lot and when I asked her to quantify, she said 2x/week. Soda vs Milk vs Water: She likes ice cold drinks and says she can drink 6-8 bottles water/day, as well as 2-3 glasses milk, OJ, and Pepsi. Additional Comments: Tamara has recently started doing shopping and cooking again, but doesn't really plan and tends to eat sandwiches, TV dinners, frozen pizza, Mac n Cheese. She said her daughter is an awesome cook but she lives in [place] and weighs about 100 lbs more than Tamara. Her is a source of help and encouragement to her - he was in the hospital today for a visit. As we were walking out she talked about how she truly wants things to change and asked if she could see me again. I gave my work number and email in the handouts I gave to her so she could reach out to me again. Recommendations: Assessment: Tamara wants better eating habits, but also has many co-morbidities that make it difficult to be active and to plan and prepare meals. We discussed meal plans for 1500 and 1800 kcals that were balanced for (CHO's, protein and fats), and we talked about the Diabetic Plate Method. She is thirsty all the time and struggles w/dry mouth, but it sounds like she drinks more Pepsi and OJ than water. Her back issues limit her movement and ability to be active. It sounds like she is at her desk a lot and tends to have candy and other sweets there. She admitted that her snacking was mindless rather then from hunger. Meals happen maybe 1-2 times a day. Sleep is an issue - she falls asleep late, but inevitable wakes up 3-4 hours later. Diagnosis: Excessive energy intake r/t habits and patterns AEB lifelong struggle with weight. Intervention: We discussed having a water bottle with her at all times and trying that as the first option when she had dry mouth, and also discussed limiting soda and OJ d/t empty calories and potential for spiking blood sugar. Handouts that included 5 days or meal plans for 1500 kcals/day and 1800 kcals/day were printed out and gone over as a template for what and how much and how often to eat. Lastly we discussed exercise from the standpoint that she needs to be protective of her back, but also find something to do like seated chair exercises that do not in any way exacerbate her issues or cause pain/discomfort. After talking about healthy snacks like cheese, eggs, peanut butter and crackers or apples, I suggested keeping snacks in the kitchen so that she would need to get up and walk to have access to them. When she wanted to snack, I recommended first drinking water, then trying 3-5 minutes of chair exercises, and then if she was hungry, she could go to the kitchen where she would hopefully have bought nutrient dense options. Monitoring and Intervention: My name, office number and extension, and email were on the take home sheet I gave her with 3 simple goals: drink more water, chair exercises, and use the handouts as a guide as she plans meals. I told her she could contact me with any questions. Coding Level of Care Code Nutrition/Individ/Init 60 min Time Spent (min) 60
== END 2023-09-30 09:57 | disposition home or self-care (01) ==
LOC: DIET 09:56
PROVIDERS: PCP Nurse Practitioner Family; Visit Provider Physician Assistant
DX: E66.01 Morbid (severe) obesity due to excess calories (principal); Z68.41 Body mass index [BMI] 40.0-44.9, adult; Z47.89 Encounter for other orthopedic aftercare; Z98.1 Arthrodesis status
CPT/HCPCS: 72100; 97802; 99024

== ENCOUNTER → 2023-10-08 08:49 | Outpatient (BNVA) | payer MEDICARE, MEDICAID, SELFPAY ==
[2021-09-25 16:05] VITALS: BP 154/81; BMI 45.6
== END ==
PROVIDERS: PCP Nurse Practitioner Family; Referring Provider Nurse Practitioner Family; Visit Provider Surgery
DX: K21.9 Gastro-esophageal reflux disease without esophagitis (principal)
CPT/HCPCS: 99203; 99213

== ENCOUNTER → 2023-11-05 10:17 | Outpatient (BNVA) | payer MEDICARE, MEDICAID, SELFPAY ==
[2021-09-25 16:05] VITALS: BP 154/81; BMI 45.6
== END ==
PROVIDERS: PCP Nurse Practitioner Family; Visit Provider Podiatrist Foot & Ankle Surgery
DX: M19.071 Primary osteoarthritis, right ankle and foot; M19.072 Primary osteoarthritis, left ankle and foot; L60.3 Nail dystrophy; L84 Corns and callosities; M77.42 Metatarsalgia, left foot; E11.42 Type 2 diabetes mellitus with diabetic polyneuropathy; Z79.4 Long term (current) use of insulin
CPT/HCPCS: 11055; 11721

== ENCOUNTER → 2023-11-06 15:21 | Outpatient (BNVA) | payer MEDICARE, MEDICAID, SELFPAY ==
[2021-09-25 16:05] VITALS: BP 154/81; BMI 45.6
== END ==
PROVIDERS: PCP Nurse Practitioner Family; Visit Provider Orthopaedic Surgery
DX: Z98.1 Arthrodesis status (principal)
CPT/HCPCS: 72100; 99024

== ENCOUNTER → 2023-11-20 13:08 | Outpatient (BNVA) | payer MEDICARE, MEDICAID, SELFPAY ==
[2021-09-25 16:05] VITALS: BP 154/81; BMI 45.6
== END ==
PROVIDERS: Visit Provider Physician Assistant
DX: M19.011 Primary osteoarthritis, right shoulder (principal); M75.41 Impingement syndrome of right shoulder
CPT/HCPCS: 20610; 73030; 99213; J3301

== ENCOUNTER 2023-11-26 12:31 | Outpatient (RCR) | payer MEDICARE, MEDICAID, SELFPAY ==
[2021-09-25 16:05] VITALS: BP 154/81; BMI 45.6
== END 2023-11-30 23:59 | disposition home or self-care (01) ==
LOC: SPT 12:31
PROVIDERS: PCP Nurse Practitioner Family; Visit Provider Orthopaedic Surgery
DX: Z98.1 Arthrodesis status (principal)
CPT/HCPCS: 97161

== ENCOUNTER 2023-12-01 06:00 | Outpatient (RCR) | payer MEDICARE, MEDICAID, SELFPAY ==
[2021-09-25 16:05] VITALS: BP 154/81; BMI 45.6
== END 2023-12-30 23:59 | disposition home or self-care (01) ==
LOC: SPT 06:00
PROVIDERS: PCP Nurse Practitioner Family; Visit Provider Orthopaedic Surgery
DX: Z47.89 Encounter for other orthopedic aftercare (principal)
CPT/HCPCS: 97110

== ENCOUNTER 2023-12-23 05:58 | Day surgery (SDC) | payer MEDICARE, MEDICAID, SELFPAY ==
[2021-09-25 16:05] VITALS: BP 154/81; BMI 45.6
--- NOTE | 2023-12-23 05:52 | W.PM.OPSFHP ---
Same Day Surgery H&P Indication for Procedure/HPI DATE OF PROCEDURE: December 23, 2023 CHIEF COMPLAINT/INDICATIONFOR SURGICAL PROCEDURE: GERD PREOP DIAGNOSIS: GERD PLANNED PROCEDURE: Operation Date: 12/23/23 07:00 Proposed Procedures p EGD(Not Applicable) - Melecio Rodas MD Medications/Allergies* Home Medications Medication Instructions Recorded Confirmed Type mecobalamin (vitamin B12) 1,000 1,000 mcg PO DAILY 02/29/20 12/12/23 History mcg chewable tablet furosemide 20 mg tablet (Lasix) 20 mg PO QAM PRN Edema 08/14/20 12/12/23 History methocarbamol 500 mg tablet 2,000 mg PO QID PRN Spasms 09/21/20 12/12/23 History lisinopril 2.5 mg tablet 2.5 mg PO DAILY 09/13/21 12/12/23 History dicyclomine 10 mg capsule 10 mg PO QID 01/04/22 12/12/23 History oxybutynin chloride 5 mg tablet 5 mg PO BID 01/04/22 12/12/23 History medical marijuana 1 applicator as directed DAILY 04/17/22 12/19/23 History pregabalin 100 mg capsule (Lyrica) 100 mg PO TID 04/17/22 12/12/23 History fenofibrate micronized 200 mg 200 mg PO DAILY 08/29/22 12/19/23 History capsule liraglutide 0.6 mg/0.1 mL (18 mg/3 1.8 mg SUBCUT DAILY 07/01/23 12/12/23 History mL) subcutaneous pen injector (Victoza 3-Kolby) ropinirole 4 mg tablet 4 mg PO TID 08/07/23 12/12/23 History vitamin-ferrous fumarate 1 tab PO BID 09/02/23 12/12/23 History 28 mg iron-folic acid 800 mcg tablet nystatin 100,000 unit/mL oral 5 ml mucous membrane QID PRN Mouth 11/20/23 12/19/23 History suspension Irritation Allergies/Adverse Reactions Allergy/AdvReac Type Severity Reaction Status Date / Time antihistamines AdvReac ADR-Shakine Uncoded 12/12/23 08:50 ss Pertinent History/Comorbid Conditions* Medical History (Updated 11/20/23 @ 14:07 by JULIAN Ibrahim) Metatarsalgia, left foot Essential hypertension Encounter for pre-operative examination Left upper extremity swelling Mass of left upper extremity Post-menopausal bleeding secondary amenorrhea not post menopausal bleeding Psychiatric care Problems related to lack of adequate sleep Problems related to lack of adequate sleep Cluster B personality disorder in adult MDD (major depressive disorder) 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 Chronic post-traumatic stress disorder (PTSD) Obstructive sleep apnea Generalized anxiety disorder Major depressive disorder, recurrent episode with mood-congruent psychotic features GI bleed due to NSAIDs History of gallbladder disease Diabetes mellitus Surgical History (Updated 08/28/23 @ 09:57 by Yasmani Williamson PA-C) S/P insertion of spinal cord stimulator S/P cholecystectomy 2002 Carpal tunnel syndrome on right 2009 Family History (Updated 11/05/19 @ 14:56 by Lillie Andrew RN) Diabetes Mother Brother Heart disease Mother Stroke Mother Grandmother maternal Social History Smoking and tobacco/nicotine status: former use of tobacco/nicotine Alcohol intake: never Substance/Drug Use: never Pertinent Exam Findings alert, oriented x 3 and clear to auscultation bilaterally Recommendations Surgery/Procedure today Coding Level of Care Code Acute Code for Chg Sheridan
[2023-12-23 06:20] VITALS: BP 113/58; PULSE 78; RESP 18; TEMP 36.2; O2SAT 97; BMI 44.4
[2023-12-23] MEDS: sodium chloride 0.9% 1,000 ML 30 ML IV (06:29)
[2023-12-23 06:32] LABS: Glucose Point of Care 141 mg/dL (70-110)
--- NOTE | 2023-12-23 07:01 | ANES.PREANE2 ---
Pre-Anesthetic Assessment Height/Weight: Height 1.6 m Weight 113.852 kg Temp Pulse Resp BP Pulse Ox O2 Del Method 97.1 F L 78 18 113/58 97 Room Air 12/23/23 06:20 12/23/23 06:20 12/23/23 06:20 12/23/23 06:20 12/23/23 06:20 12/23/23 06:20 Preop Diagnosis: GERD Operation Date: 12/23/23 07:00 Proposed Procedures p EGD(Not Applicable) - Melecio Rodas MD Familial anesthetic complications: none Was Beta Sandeep taken within 24 hours: N/A Was Clonidine taken within 24 hours: N/A Last intake: Intake Last Liquid Date 12/22/23 Last Liquid Time 20:30 Last Solid Date 12/22/23 Last Solid Time 20:30 Social No alcohol and No tobacco marijuana last night 2029 Exam alert, oriented x 3, clear to auscultation bilaterally and regular rate & rhythm Airway Submandibular: within normal limits Cervical ROM: within normal limits Mallampati: Class II Dentition: chipped, loose and full Comments: Comments: top left and right have some chipped Pulmonary Sleep Apnea CV/HEM Hypertension and Murmur None reported Hepatic None reported GI Gastroesophageal Reflux Disease Metabolic Diabetes Mellitus, Morbid Obesity and Thyroid Disease Musc/skel Lower Back Pain Neuropsych Anxiety and Depression Anesthetic Plan ASA status: 3 Anesthesia: MAC Risk of > 500 ml blood loss (7ml/kg in children): No Medications/Allergies Home Medications Medication Instructions Recorded Confirmed Last Taken Type mecobalamin (vitamin B12) 1,000 1,000 mcg PO DAILY 02/29/20 12/23/23 12/22/23 History mcg chewable tablet furosemide 20 mg tablet (Lasix) 20 mg PO QAM PRN Edema 08/14/20 12/23/23 12/22/23 History dapagliflozin propanediol 10 mg 10 mg PO DAILY #90 tabs 09/27/20 12/23/23 12/22/23 Rx tablet (Farxiga) lisinopril 2.5 mg tablet 2.5 mg PO DAILY 09/13/21 12/23/23 12/22/23 History dicyclomine 10 mg capsule 10 mg PO QID 01/04/22 12/23/23 12/22/23 History oxybutynin chloride 5 mg tablet 5 mg PO BID 01/04/22 12/23/23 12/22/23 History pantoprazole 40 mg tablet,delayed 40 mg PO BID #180 tabs 01/23/22 12/23/23 12/22/23 Rx release (Protonix) medical marijuana 1 applicator as directed DAILY 04/17/22 12/23/23 12/22/23 History pregabalin 100 mg capsule (Lyrica) 100 mg PO TID 04/17/22 12/23/23 12/22/23 History fenofibrate micronized 200 mg 200 mg PO DAILY 08/29/22 12/23/23 12/22/23 History capsule Diabetic Shoes with 3 pairs of #1 ea 10/15/22 12/12/23 Unknown Rx inserts diclofenac sodium 1 % topical gel 4 g topical QID #100 grams 01/23/23 12/23/23 03/06/23 Rx (Arthritis Pain (diclofenac)) FreeStyle Zain 2 Sensor (flash #6 ea 02/24/23 12/12/23 Unknown Rx glucose sensor) glucagon 1 mg solution for See Rx Instructions .Route 03/20/23 12/23/23 Unknown Rx injection (Glucagon Emergency Kit) .COMPLEX #1 ea liraglutide 0.6 mg/0.1 mL (18 mg/3 1.8 mg SUBCUT DAILY 07/01/23 12/23/23 12/21/23 History mL) subcutaneous pen injector (Victoza 3-Kolby) levothyroxine 25 mcg tablet See Rx Instructions .Route 07/04/23 12/23/23 12/23/23 Rx .COMPLEX #270 tabs front wheeled walker #1 ea 07/23/23 12/12/23 Unknown Rx ropinirole 4 mg tablet 4 mg PO TID 08/07/23 12/23/23 12/23/23 History vitamin-ferrous fumarate 1 tab PO BID 09/02/23 12/23/23 12/22/23 History 28 mg iron-folic acid 800 mcg tablet insulin glargine-yfgn 100 unit/mL See Rx Instructions .Route 10/16/23 12/23/23 12/21/23 Rx (3 mL) subcutaneous pen .COMPLEX #75 mL nystatin 100,000 unit/mL oral 5 ml mucous membrane QID PRN Mouth 11/20/23 12/23/23 12/22/23 History suspension Irritation amitriptyline 100 mg tablet 100 mg PO .HS 30 days #30 tabs 12/01/23 12/23/23 12/22/23 Rx duloxetine 60 mg capsule,delayed 60 mg PO QAM 30 days #30 caps 12/01/23 12/23/23 12/22/23 Rx release paroxetine HCl 30 mg tablet (Paxil) 45 mg (1.5 x 30 mg) PO DAILY #45 12/01/23 12/23/23 12/22/23 Rx tabs topiramate 50 mg tablet 50 mg PO DAILY 30 days #30 tabs 12/01/23 12/23/23 12/22/23 Rx trazodone 100 mg tablet 100 mg PO .qhs 30 days #30 tabs 12/01/23 12/23/23 12/22/23 Rx tizanidine 4 mg tablet 4 mg PO BID PRN Muscle Spasm 12/23/23 12/23/23 12/22/23 History Allergies Allergy/AdvReac Type Severity Reaction Status Date / Time antihistamines AdvReac ADR-Shakine Uncoded 12/23/23 06:14 ss Current Medications Generic Name Dose Route Start Last Admin Trade Name Freq PRN Reason Stop Dose Admin Sodium Chloride 1,000 mls @ 30 mls/hr 12/23/23 06:30 12/23/23 06:29 Sodium Chloride 0.9% IV 30 mls/hr .Q24H MISSY Administration PFSH Anesthesia Medical History Metatarsalgia, left foot Essential hypertension Encounter for pre-operative examination Left upper extremity swelling Mass of left upper extremity Post-menopausal bleeding secondary amenorrhea not post menopausal bleeding Psychiatric care Problems related to lack of adequate sleep Problems related to lack of adequate sleep Cluster B personality disorder in adult MDD (major depressive disorder) 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 Chronic post-traumatic stress disorder (PTSD) Obstructive sleep apnea Generalized anxiety disorder Major depressive disorder, recurrent episode with mood-congruent psychotic features GI bleed due to NSAIDs History of gallbladder disease Diabetes mellitus Surgical History S/P insertion of spinal cord stimulator S/P cholecystectomy 2002 Carpal tunnel syndrome on right 2010 Family History Mother Heart disease Stroke Diabetes Brother Diabetes Grandmother Stroke maternal Social History Smoking and tobacco/nicotine status: former use of tobacco/nicotine Alcohol intake: never Substance/Drug Use: never Data Anesthesia Cardiac Studies: Echocardiogram Ultrasound 02/20/21
[2023-12-23 07:27] VITALS: BP 118/57; PULSE 77; RESP 18; TEMP 36.3; O2SAT 95
[2023-12-23 07:37] VITALS: BP 119/61; PULSE 79; RESP 18; O2SAT 96
[2023-12-23 07:47] VITALS: BP 100/51; PULSE 77; RESP 18; O2SAT 94
--- NOTE | 2023-12-23 08:00 | ANE.PACU2 ---
Inpatient post-anesthesia follow up: Airway intact: Yes Vital signs: Temperature 97.4 F Pulse Rate 77 Respiratory Rate 18 Blood Pressure 100/51 Pulse Oximetry 94 Oxygen Delivery Me thod Room Air Oxygen Flow Rate Fraction of Inspir ed Oxygen Hydration adequate: Yes Nausea and vomiting: No Pain level: 1 Mental status: Baseline
== END 2023-12-23 08:00 | disposition home or self-care (01) ==
PROVIDERS: PCP Nurse Practitioner Family; Visit Provider Surgery
PROC: 0DJ08ZZ Inspection of Upper Intestinal Tract, Via Natural or Artificial Opening Endoscopic (ICD-10-PCS; CPT 43235; principal; 2023-12-23 07:00)
DX: K21.9 Gastro-esophageal reflux disease without esophagitis (principal); K29.50 Unspecified chronic gastritis without bleeding; I10 Essential (primary) hypertension; G47.33 Obstructive sleep apnea (adult) (pediatric); E11.9 Type 2 diabetes mellitus without complications; Z87.891 Personal history of nicotine dependence; E66.01 Morbid (severe) obesity due to excess calories; Z68.41 Body mass index [BMI] 40.0-44.9, adult; K44.9 Diaphragmatic hernia without obstruction or gangrene
CPT/HCPCS: 36416; 43239; 82962; 88305; 88342; J2704; J7030

== ENCOUNTER 2023-12-31 06:00 | Outpatient (RCR) | payer MEDICARE, MEDICAID, SELFPAY ==
[2021-09-25 16:05] VITALS: BP 154/81; BMI 45.6
== END 2024-01-30 23:59 | disposition home or self-care (01) ==
LOC: SPT 06:00
PROVIDERS: PCP Nurse Practitioner Family; Visit Provider Orthopaedic Surgery
DX: Z47.89 Encounter for other orthopedic aftercare (principal)
CPT/HCPCS: 97110

== ENCOUNTER → 2024-01-01 09:09 | Outpatient (BNVA) | payer MEDICARE, OTHER, SELFPAY ==
[2021-09-25 16:05] VITALS: BP 154/81; BMI 45.6
== END ==
PROVIDERS: PCP Nurse Practitioner Family; Visit Provider Internal Medicine
DX: E11.9 Type 2 diabetes mellitus without complications (principal); E03.9 Hypothyroidism, unspecified; E78.2 Mixed hyperlipidemia; N91.1 Secondary amenorrhea; N91.2 Amenorrhea, unspecified; K14.6 Glossodynia; Z79.4 Long term (current) use of insulin; Z79.890 Hormone replacement therapy
CPT/HCPCS: 99214

== ENCOUNTER → 2024-01-06 10:44 | Outpatient (BNVA) | payer MEDICARE, MEDICAID, SELFPAY ==
[2021-09-25 16:05] VITALS: BP 154/81; BMI 45.6
== END ==
PROVIDERS: PCP Nurse Practitioner Family; Visit Provider Surgery
DX: Z09 Encounter for follow-up examination after completed treatment for conditions other than malignant neoplasm
CPT/HCPCS: 99213

== ENCOUNTER → 2024-01-15 10:37 | Outpatient (BNVA) | payer MEDICARE, MEDICAID, SELFPAY ==
[2021-09-25 16:05] VITALS: BP 154/81; BMI 45.6
== END ==
PROVIDERS: PCP Nurse Practitioner Family; Visit Provider Physician Assistant
DX: Z98.1 Arthrodesis status (principal); M75.41 Impingement syndrome of right shoulder
CPT/HCPCS: 72100; 99213

== ENCOUNTER 2024-01-31 06:00 | Outpatient (RCR) | payer MEDICARE, SELFPAY ==
[2021-09-25 16:05] VITALS: BP 154/81; BMI 45.6
== END 2024-02-29 23:59 | disposition home or self-care (01) ==
LOC: SPT 06:00
PROVIDERS: Visit Provider Orthopaedic Surgery
DX: Z47.89 Encounter for other orthopedic aftercare (principal)
CPT/HCPCS: 97110

== ENCOUNTER → 2024-02-17 08:06 | Outpatient (BNVA) | payer MEDICARE, MEDICAID, SELFPAY ==
[2021-09-25 16:05] VITALS: BP 154/81; BMI 45.6
== END ==
PROVIDERS: Visit Provider Orthopaedic Surgery
DX: Z98.1 Arthrodesis status (principal); M54.9 Dorsalgia, unspecified
CPT/HCPCS: 72072; 72100; 99214

== ENCOUNTER → 2024-02-18 11:32 | Outpatient (CLI) | payer MEDICARE, MEDICAID, SELFPAY ==
[2021-09-25 16:05] VITALS: BP 154/81; BMI 45.6
--- NOTE | 2024-02-18 11:45 | MR_ITS ---
WS: [id number] MRI RIGHT SHOULDER NONCONTRAST TECHNIQUE: Sagittal T2, coronal T1, T2 and proton density imaging. Axial gradient PDE imaging. CLINICAL INFORMATION: right shoulder pain COMPARISON: MRI 2022 FINDINGS: Previously described postoperative changes biceps tendon and rotator cuff repair with anchors in the humeral head. Surgical repair of the subscapularis tendon. Susceptibly artifact degrades some images. No evidence of high-grade recurrent rotator cuff tear. Somewhat diminutive joint capsule visually can be seen with adhesive capsulitis as previously described. Moderate arthritis of the AC joint with mild fluid and edema. Subacromial space is preserved. Suprasp inatus is intact. Tendinopathy with a tiny undersurface and insertional tear distal supraspinatus. No rmal infraspinatus. Normal teres minor. Previous repair of the subscapularis tendon which appears unc hanged from previous and appears intact distally. Images in this area degraded due to hardware artifa ct. Glenoid labrum appears grossly intact. No other significant changes compared to previous. MR/MR shoulder RT wo con* [id number] IMPRESSION: 1. Prior postoperative changes repair of the subscapularis and biceps tendon. 2. Tendinopathy with small undersurface and insertional tear distal supraspina tus appears new from previous. 3. Rotator cuff is otherwise intact 4. Repaired subscapularis tendon appears intact distally although images degra ded in this area due to hardware artifact. 5. Suspicion for adhesive capsulitis as previously described. 6. No other new findings.
== END | disposition home or self-care (01) ==
PROVIDERS: PCP Nurse Practitioner Family; Visit Provider Physician Assistant
DX: M75.41 Impingement syndrome of right shoulder (principal); M75.91 Shoulder lesion, unspecified, right shoulder; Z98.890 Other specified postprocedural states; M19.011 Primary osteoarthritis, right shoulder; S46.011A Strain of muscle(s) and tendon(s) of the rotator cuff of right shoulder, initial encounter
CPT/HCPCS: 73221

== ENCOUNTER → 2024-02-27 07:59 | Outpatient (BNVA) | payer MEDICARE, MEDICAID, SELFPAY ==
[2021-09-25 16:05] VITALS: BP 154/81; BMI 45.6
== END ==
PROVIDERS: PCP Nurse Practitioner Family; Visit Provider Physician Assistant
DX: M75.101 Unspecified rotator cuff tear or rupture of right shoulder, not specified as traumatic (principal); M19.011 Primary osteoarthritis, right shoulder
CPT/HCPCS: 20610; 99213; J3301

== ENCOUNTER 2024-03-01 06:00 | Outpatient (RCR) | payer MEDICARE, MEDICAID, SELFPAY ==
[2021-09-25 16:05] VITALS: BP 154/81; BMI 45.6
== END 2024-03-31 23:59 | disposition home or self-care (01) ==
LOC: SPT 06:00
PROVIDERS: PCP Nurse Practitioner Family; Visit Provider Orthopaedic Surgery
DX: E11.8 Type 2 diabetes mellitus with unspecified complications (principal); L60.3 Nail dystrophy; L84 Corns and callosities; M19.071 Primary osteoarthritis, right ankle and foot; M19.072 Primary osteoarthritis, left ankle and foot; M77.42 Metatarsalgia, left foot; E11.42 Type 2 diabetes mellitus with diabetic polyneuropathy; M79.672 Pain in left foot; Z79.4 Long term (current) use of insulin; Z98.1 Arthrodesis status
CPT/HCPCS: 11056; 11721; 97110; 99213

== ENCOUNTER 2024-03-17 09:30 | Outpatient (CLI) | payer MEDICARE, MEDICAID, SELFPAY ==
[2021-09-25 16:05] VITALS: BP 154/81; BMI 45.6
--- NOTE | 2024-03-17 09:30 | MR_ITS ---
WS: [id number] MRI LUMBAR SPINE WITH AND WITHOUT CONTRAST HISTORY: Back Pain, prior surgery. COMPARISON: None available. TECHNIQUE: Sagittal and axial multisequence imaging is submitted. Postcontrast MultiHance 20 mL IV. Localizer image demonstrates a central disc protrusion at C6-7 contacting the cervical cord. There ar e additional disc protrusions at T6-7, T8-9 and T7-8. Prior posterior lumbar fusion at L4-5 with interbody spacer. 3 mm anterolisthesis of L4. No acute fra cture. Small amount of reactive marrow edema along the endplates of L4 and L5. Disc spaces and vertebral body heights are well-preserved. Conus terminates normally at L1-2 disc level. L1-L2: Normal. L2-L3: Mild annular disc bulging with ligamentum flavum and facet arthritis. Shallow RIGHT paracentra l disc protrusion. Mild central stenosis with encroachment upon the subarticular recesses. Slightly g reater narrowing of the RIGHT subarticular recess encroaching upon the RIGHT traversing L3 nerve root . L3-L4: Diffuse annular disc bulging with a broad-based shallow LEFT foraminal disc protrusion. Marked ligamentum flavum and facet arthritis. Moderate to severe central with bilateral subarticular recess and LEFT foraminal stenosis. Mild RIGHT foraminal stenosis. L4-L5: Diffuse annular disc bulging encroaching upon the ventral thecal sac. Mild to moderate central with bilateral subarticular recess encroachment. Mild bilateral foraminal narrowing. Posterior soft tissues are distorted but there does appear to be laminectomy defect on the LEFT. L5-S1: Mild annular disc bulging with mild contact on the S1 nerve roots but no high-grade stenosis. Mild foraminal narrowing. Postcontrast imaging is negative for discitis or osteomyelitis. Scar tissue is noted at the L4-5 leve l at the site of the laminectomy defect. Dorsal column stimulator wires seen on the prior MRI are no longer present. MR/MR lumbar spine wo/w con [id number] IMPRESSION: 1. Status post posterior L4-5 lumbar fusion with interbody spacer, unchanged. 2. Progression of L3 anterolisthesis to 7.3 mm. 3. L3-4: There is now moderate to severe central with bilateral subarticular r ecess and LEFT foraminal stenosis. Mild RIGHT foraminal stenosis. Stenosis at t his level has progressed. 4. L2-3: Mild central with bilateral subarticular recess and foraminal stenosi s. Similar to the prior study. Slightly greater disc contact on the traversing RIGHT L3 nerve root. 5. L4-5: Mild to moderate central with bilateral subarticular recess encroachm ent and foraminal narrowing. Very similar to the prior study. 6. L5-S1: Mild bilateral foraminal stenosis.
[2024-03-17] MEDS: gadobenate dimeglumine 20 mL vial IV (09:59)
== END 2024-03-17 09:31 | disposition home or self-care (01) ==
PROVIDERS: PCP Nurse Practitioner Family; Visit Provider Orthopaedic Surgery
DX: M99.63 Osseous and subluxation stenosis of intervertebral foramina of lumbar region (principal); M43.26 Fusion of spine, lumbar region; M54.9 Dorsalgia, unspecified
CPT/HCPCS: 72158; A9577

== ENCOUNTER → 2024-03-26 08:45 | Outpatient (BNVA) | payer MEDICARE, MEDICAID, SELFPAY ==
[2021-09-25 16:05] VITALS: BP 154/81; BMI 45.6
== END ==
PROVIDERS: PCP Nurse Practitioner Family; Visit Provider Internal Medicine
DX: E11.9 Type 2 diabetes mellitus without complications (principal); E03.9 Hypothyroidism, unspecified; E78.2 Mixed hyperlipidemia; N91.1 Secondary amenorrhea; N91.2 Amenorrhea, unspecified; K14.6 Glossodynia; Z79.4 Long term (current) use of insulin; Z79.890 Hormone replacement therapy
CPT/HCPCS: 36415; 80053; 80061; 82044; 82607; 82746; 83036; 83540; 84207; 84252; 84439; 84443; 84630; 99215

== ENCOUNTER 2024-04-01 06:00 | Outpatient (RCR) | payer MEDICARE, SELFPAY ==
[2021-09-25 16:05] VITALS: BP 154/81; BMI 45.6
== END 2024-05-01 23:59 | disposition home or self-care (01) ==
LOC: SPT 06:00
PROVIDERS: PCP Nurse Practitioner Family; Visit Provider Orthopaedic Surgery
DX: Z98.1 Arthrodesis status
CPT/HCPCS: 97110

== ENCOUNTER 2024-05-02 06:00 | Outpatient (RCR) | payer MEDICARE, SELFPAY ==
[2024-05-06 09:11] VITALS: BP 154/81; BMI 45.6
== END 2024-05-31 23:59 | disposition home or self-care (01) ==
LOC: SPT 06:00
PROVIDERS: PCP Nurse Practitioner Family; Visit Provider Orthopaedic Surgery
DX: Z47.89 Encounter for other orthopedic aftercare (principal)
CPT/HCPCS: 97110

== ENCOUNTER → 2024-05-06 07:58 | Outpatient (BNVA) | payer MEDICARE, MEDICAID, SELFPAY ==
[2024-05-06 09:11] VITALS: BP 154/81; BMI 45.6
== END ==
PROVIDERS: PCP Nurse Practitioner Family; Visit Provider Internal Medicine
DX: E11.9 Type 2 diabetes mellitus without complications (principal); E03.9 Hypothyroidism, unspecified; E78.2 Mixed hyperlipidemia; R68.2 Dry mouth, unspecified; N91.2 Amenorrhea, unspecified; K14.6 Glossodynia; R13.10 Dysphagia, unspecified; Z79.4 Long term (current) use of insulin; Z79.890 Hormone replacement therapy; Z79.85 Long-term (current) use of injectable non-insulin antidiabetic drugs
CPT/HCPCS: 99214

== ENCOUNTER 2024-05-10 11:33 | Outpatient (CLI) | payer MEDICARE, OTHER, SELFPAY ==
[2024-05-10 13:22] LABS: Erythrocyte Sedimentation Rate 32 mm/hr (0-15)
[2024-05-10 13:30] LABS: C Reactive Protein 20.1 mg/L (0.0-4.9)
[2024-05-11 14:40] LABS: Cyclic Citrullinated Peptide <16 UNITS
== END 2024-05-10 11:34 | disposition home or self-care (01) ==
LOC: LAB 11:34
PROVIDERS: PCP Nurse Practitioner Family; Visit Provider Internal Medicine
DX: E11.9 Type 2 diabetes mellitus without complications (principal); E03.9 Hypothyroidism, unspecified; E78.2 Mixed hyperlipidemia; R68.2 Dry mouth, unspecified
CPT/HCPCS: 36415; 85651; 86140; 86160; 86162; 86200; 86235; 86255; 86376; 86431

== ENCOUNTER → 2024-06-04 08:47 | Outpatient (BNVA) | payer SELFPAY ==
[2024-05-06 09:11] VITALS: BP 154/81; BMI 45.6
== END ==
PROVIDERS: PCP Nurse Practitioner Family; Visit Provider Physician Assistant
DX: M25.551 Pain in right hip (principal); M70.61 Trochanteric bursitis, right hip; M54.16 Radiculopathy, lumbar region
CPT/HCPCS: 73502

== ENCOUNTER → 2024-06-08 09:43 | Outpatient (BNVA) | payer MEDICARE, SELFPAY | PROVIDERS: PCP Nurse Practitioner Family; Visit Provider Podiatrist Foot & Ankle Surgery | DX: M19.071 Primary osteoarthritis, right ankle and foot (principal); M19.072 Primary osteoarthritis, left ankle and foot; M77.42 Metatarsalgia, left foot; E11.42 Type 2 diabetes mellitus with diabetic polyneuropathy; E11.8 Type 2 diabetes mellitus with unspecified complications; M79.672 Pain in left foot; Z79.4 Long term (current) use of insulin | CPT/HCPCS: 99213 ==

== ENCOUNTER → 2024-06-15 08:35 | Outpatient (BNVA) | payer MEDICARE, SELFPAY | PROVIDERS: PCP Nurse Practitioner Family; Visit Provider Internal Medicine | DX: E11.9 Type 2 diabetes mellitus without complications (principal); E03.9 Hypothyroidism, unspecified; E78.2 Mixed hyperlipidemia; N91.2 Amenorrhea, unspecified; K14.6 Glossodynia; R68.2 Dry mouth, unspecified; R13.10 Dysphagia, unspecified; R32 Unspecified urinary incontinence; Z79.890 Hormone replacement therapy; Z79.4 Long term (current) use of insulin; Z79.85 Long-term (current) use of injectable non-insulin antidiabetic drugs | CPT/HCPCS: 99214 ==

== ENCOUNTER → 2024-07-13 08:02 | Outpatient (BNVA) | payer OTHER, SELFPAY ==
[2024-07-07 13:39] VITALS: BP 147/68; BMI 41.9
== END ==
PROVIDERS: PCP Nurse Practitioner Family; Visit Provider Orthopaedic Surgery
DX: Z98.1 Arthrodesis status (principal)
CPT/HCPCS: 72100

== ENCOUNTER → 2024-07-16 10:01 | Outpatient (BNVA) | payer MEDICARE, MEDICAID, SELFPAY ==
[2024-07-07 13:39] VITALS: BP 147/68; BMI 41.9
== END ==
PROVIDERS: PCP Nurse Practitioner Family; Visit Provider Student in an Organized Health Care Education/Training Program
DX: M25.511 Pain in right shoulder (principal); M65.911 Unspecified synovitis and tenosynovitis, right shoulder
CPT/HCPCS: 99213

== ENCOUNTER 2024-08-03 09:36 | Outpatient (RCR) | payer MEDICARE, MEDICAID, SELFPAY ==
[2024-07-07 13:39] VITALS: BP 147/68; BMI 41.9
== END 2024-08-31 23:59 | disposition home or self-care (01) ==
LOC: SPT 09:36
PROVIDERS: Visit Provider Student in an Organized Health Care Education/Training Program
DX: M75.41 Impingement syndrome of right shoulder (principal)
CPT/HCPCS: 97110; 97161

== ENCOUNTER 2024-08-03 09:37 | Outpatient (RCR) | payer MEDICARE, MEDICAID, SELFPAY ==
[2024-07-07 13:39] VITALS: BP 147/68; BMI 41.9
== END 2024-08-31 23:59 | disposition home or self-care (01) ==
LOC: SPT 09:37
PROVIDERS: Visit Provider Orthopaedic Surgery
DX: M54.9 Dorsalgia, unspecified (principal); G89.29 Other chronic pain
CPT/HCPCS: 97110; 97161

== ENCOUNTER → 2024-09-17 08:30 | Outpatient (BNVA) | payer MEDICARE, SELFPAY ==
[2024-07-07 13:39] VITALS: BP 147/68; BMI 41.9
== END ==
PROVIDERS: Visit Provider Student in an Organized Health Care Education/Training Program
DX: M65.911 Unspecified synovitis and tenosynovitis, right shoulder; M19.011 Primary osteoarthritis, right shoulder
CPT/HCPCS: 20610; 77002; J3301

== ENCOUNTER → 2024-10-12 10:33 | Outpatient (BNVA) | payer MEDICARE, SELFPAY ==
[2024-07-07 13:39] VITALS: BP 147/68; BMI 41.9
== END ==
PROVIDERS: PCP Nurse Practitioner Family; Visit Provider Orthopaedic Surgery
DX: Z98.1 Arthrodesis status (principal)
CPT/HCPCS: 99213

== ENCOUNTER → 2024-11-10 08:12 | Outpatient (BNVA) | payer MEDICARE, MEDICAID, OTHER, SELFPAY ==
[2024-07-07 13:39] VITALS: BP 147/68; BMI 41.9
== END ==
PROVIDERS: PCP Nurse Practitioner Family; Visit Provider Podiatrist Foot & Ankle Surgery
DX: M19.071 Primary osteoarthritis, right ankle and foot (principal); M19.072 Primary osteoarthritis, left ankle and foot; M77.42 Metatarsalgia, left foot; E11.42 Type 2 diabetes mellitus with diabetic polyneuropathy
CPT/HCPCS: 99213

== ENCOUNTER → 2024-11-16 10:25 | Outpatient (BNVA) | payer MEDICARE, SELFPAY ==
[2024-07-07 13:39] VITALS: BP 147/68; BMI 41.9
== END ==
PROVIDERS: PCP Nurse Practitioner Family; Visit Provider Internal Medicine
DX: R79.89 Other specified abnormal findings of blood chemistry (principal); R13.10 Dysphagia, unspecified; R32 Unspecified urinary incontinence; R68.2 Dry mouth, unspecified; K14.6 Glossodynia; E78.2 Mixed hyperlipidemia; N91.2 Amenorrhea, unspecified; E03.9 Hypothyroidism, unspecified; E11.9 Type 2 diabetes mellitus without complications
CPT/HCPCS: 36415; 80053; 80061; 82044; 83036; 84439; 84443

== ENCOUNTER → 2024-11-30 10:47 | Outpatient (BNVA) | payer MEDICARE, SELFPAY ==
[2024-11-24 14:11] VITALS: BP 122/70; BMI 42.6
== END ==
PROVIDERS: PCP Nurse Practitioner Family; Visit Provider Orthopaedic Surgery
DX: M54.9 Dorsalgia, unspecified (principal); M48.062 Spinal stenosis, lumbar region with neurogenic claudication
CPT/HCPCS: 72110; 99213

== ENCOUNTER → 2025-01-13 08:43 | Outpatient (BNVA) | payer MEDICARE, SELFPAY ==
[2024-11-24 14:11] VITALS: BP 122/70; BMI 42.6
== END ==
PROVIDERS: PCP Nurse Practitioner Family; Visit Provider Orthopaedic Surgery
DX: M54.2 Cervicalgia (principal); M54.9 Dorsalgia, unspecified; Z98.1 Arthrodesis status
CPT/HCPCS: 72050; 72072; 72110; 73523; 99213; 99214

== ENCOUNTER → 2025-02-01 09:44 | Outpatient (BNVA) | payer MEDICARE, SELFPAY ==
[2024-11-24 14:11] VITALS: BP 122/70; BMI 42.6
== END ==
PROVIDERS: PCP Nurse Practitioner Family; Visit Provider Internal Medicine
DX: E11.9 Type 2 diabetes mellitus without complications (principal); E03.9 Hypothyroidism, unspecified; R13.10 Dysphagia, unspecified; K14.6 Glossodynia; E78.2 Mixed hyperlipidemia; R68.2 Dry mouth, unspecified
CPT/HCPCS: 99215

== ENCOUNTER → 2025-02-22 08:46 | Outpatient (BNVA) | payer MEDICARE, MEDICAID, SELFPAY ==
[2024-11-24 14:11] VITALS: BP 122/70; BMI 42.6
== END ==
PROVIDERS: PCP Nurse Practitioner Family; Visit Provider Podiatrist Foot & Ankle Surgery
DX: E11.42 Type 2 diabetes mellitus with diabetic polyneuropathy (principal); L60.3 Nail dystrophy; L84 Corns and callosities; E11.8 Type 2 diabetes mellitus with unspecified complications; M21.619 Bunion of unspecified foot; M20.40 Other hammer toe(s) (acquired), unspecified foot; M21.41 Flat foot [pes planus] (acquired), right foot; M21.42 Flat foot [pes planus] (acquired), left foot; M21.611 Bunion of right foot; M21.612 Bunion of left foot; M20.42 Other hammer toe(s) (acquired), left foot
CPT/HCPCS: 11055; 11721

== ENCOUNTER 2025-02-23 06:15 | Day surgery (SDC) | payer BC, SELFPAY ==
[2024-11-24 14:11] VITALS: BP 122/70; BMI 42.6
[2025-02-23 06:36] VITALS: BP 151/75; PULSE 88; RESP 18; TEMP 36.4; O2SAT 97; BMI 42.3
[2025-02-23 06:43] LABS: OR HCG Qualitative Urine Negative (Negative)
[2025-02-23] MEDS: sodium chloride 0.9% 1,000 ML 15 ML IV (06:45)
[2025-02-23 06:50] LABS: Glucose Point of Care 151 mg/dL (70-110)
--- NOTE | 2025-02-23 06:51 | W.PM.OPSFHP ---
Same Day Surgery H&P Indication for Procedure/HPI DATE OF PROCEDURE: February 23, 2025 CHIEF COMPLAINT/INDICATIONFOR SURGICAL PROCEDURE: need for screening colonoscopy PREOP DIAGNOSIS: need for screening colonoscopy PLANNED PROCEDURE: Operation Date: 02/23/25 07:40 Proposed Procedures p Colonoscopy 19458 G0105 Z12.11(Not Applicable) - Melecio Rodas MD Medications/Allergies* Home Medications ?Medication ?Instructions ?Recorded ?Confirmed ?Type mecobalamin (vitamin B12) 1,000 1,000 mcg PO DAILY 02/29/20 02/22/25 History mcg chewable tablet lisinopril 2.5 mg tablet 2.5 mg PO DAILY 09/13/21 02/22/25 History dicyclomine 10 mg capsule 10 mg PO QID 01/04/22 02/22/25 History oxybutynin chloride 5 mg tablet 5 mg PO BID 01/04/22 02/22/25 History medical marijuana 1 applicator as directed DAILY 04/17/22 02/22/25 History ropinirole 4 mg tablet 4 mg PO TID 08/07/23 02/22/25 History vitamin-ferrous fumarate 1 tab PO BID 09/02/23 02/22/25 History 28 mg iron-folic acid 800 mcg tablet nystatin 100,000 unit/mL oral 5 ml mucous membrane QID PRN Mouth 11/20/23 02/22/25 History suspension Irritation tizanidine 4 mg tablet 4 mg PO BID PRN Muscle Spasm 12/23/23 02/22/25 History atorvastatin 10 mg tablet 10 mg PO DAILY 05/06/24 02/22/25 History furosemide 20 mg tablet (Lasix) 40 mg PO QAM PRN Edema 12/07/24 02/22/25 History insulin glargine 100 unit/mL 60 unit SUBCUT DAILY 12/07/24 02/22/25 History subcutaneous solution (Lantus U-100 Insulin) levothyroxine 50 mcg tablet 50 mcg PO DAILY 02/21/25 02/22/25 History pioglitazone 30 mg tablet (Actos) 30 mg PO DAILY 02/21/25 02/22/25 History Allergies/Adverse Reactions Allergy/AdvReac Type Severity Reaction Status Date / Time Antihistamines - Alkylamine Allergy Unknown ADR-Shakine Verified 02/22/25 08:49 ss Antihistamines - Ethanolamine Allergy Unknown ADR-Shakine Verified 02/22/25 08:49 ss Antihistamines - Allergy Unknown ADR-Shakine Verified 02/22/25 08:49 Ethylenediamine ss Antihistamines - Piperazine Allergy Unknown ADR-Shakine Verified 02/22/25 08:49 ss Antihistamines - Piperidine Allergy Unknown ADR-Shakine Verified 02/22/25 08:49 ss Current Medications: Generic Name Dose Route Start Last Admin Trade Name Freq PRN Reason Stop Dose Admin Sodium Chloride 1,000 mls @ 15 mls/hr 02/23/25 06:20 02/23/25 06:45 Sodium Chloride 0.9% IV 02/24/25 06:19 15 mls/hr .Q24H PRN Administration COLONOSCOPY FLUIDS Pertinent History/Comorbid Conditions* Medical History (Updated 09/16/24 @ 17:04 by Geovani White DO) Metatarsalgia, left foot Essential hypertension Encounter for pre-operative examination Left upper extremity swelling Mass of left upper extremity Post-menopausal bleeding secondary amenorrhea not post menopausal bleeding Psychiatric care Problems related to lack of adequate sleep Problems related to lack of adequate sleep Cluster B personality disorder in adult MDD (major depressive disorder) 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 Chronic post-traumatic stress disorder (PTSD) Obstructive sleep apnea Generalized anxiety disorder Major depressive disorder, recurrent episode with mood-congruent psychotic features GI bleed due to NSAIDs History of gallbladder disease Diabetes mellitus Surgical History (Updated 08/28/23 @ 09:57 by Yasmani Williamson PA-C) S/P insertion of spinal cord stimulator S/P cholecystectomy 2002 Carpal tunnel syndrome on right 2009 Family History (Updated 11/05/19 @ 14:56 by Lillie Andrew RN) Diabetes Mother Brother Heart disease Mother Stroke Mother Grandmother maternal Social History Smoking and tobacco/nicotine status: unknown if used tobacco/nicotine Second hand smoke exposure: No Alcohol intake: never Substance/Drug Use: current Substance/Drug use frequency: daily Household members: spouse Housing: House Marital status: Number of children: 1 Highest education level completed: Associate Degree: Occupational, Technical, Vocational Program service: No Current occupational status: disabled Current occupational exposures/hazards: No Pets and animals: Yes Pets & animals: dog(s) Leisure activites: other Leisure activities details: computer Sexually active: Yes Do you think of yourself as: Straight/Heterosexual Current gender identity: Female Caitlin/Yazdanism: Taoism Agree to transfusion: Yes Pertinent Exam Findings alert, oriented x 3, clear to auscultation bilaterally and regular rate & rhythm Recommendations Surgery/Procedure today Coding Level of Care Code Acute Code for Chg [facility]
--- NOTE | 2025-02-23 06:56 | ANES.PREANE2 ---
Pre-Anesthetic Assessment Height/Weight: Height 1.6 m Weight 108.409 kg Temp Pulse Resp BP Pulse Ox O2 Del Method 97.5 F L 88 18 151/75 97 Room Air 02/23/25 06:36 02/23/25 06:36 02/23/25 06:36 02/23/25 06:36 02/23/25 06:36 02/23/25 06:36 Preop Diagnosis: need for screening colonoscopy Operation Date: 02/23/25 07:40 Proposed Procedures p Colonoscopy 82831 G0105 Z12.11(Not Applicable) - Melecio Rodas MD Was Beta Sandeep taken within 24 hours: N/A Was Clonidine taken within 24 hours: N/A Last intake: Intake Last Liquid Date 02/22/25 Last Liquid Time 23:00 Last Solid Date 02/21/25 Last Solid Time 18:00 Social No alcohol and No tobacco Marijuana daily Exam alert, oriented x 3, clear to auscultation bilaterally and regular rate & rhythm History/ROS No significant history except as noted and No significant complaints Pulmonary Sleep Apnea and Shortness of Breath CV/HEM Hypertension None reported Hepatic None reported GI Gastroesophageal Reflux Disease Metabolic Diabetes Mellitus [facility] None reported Neuropsych Anxiety and Depression Anesthetic Plan ASA status: 3 Anesthesia: MAC Risk of > 500 ml blood loss (7ml/kg in children): No Medications/Allergies Home Medications ?Medication ?Instructions ?Recorded ?Confirmed ?Last Taken ?Type mecobalamin (vitamin B12) 1,000 1,000 mcg PO DAILY 02/29/20 02/22/25 02/22/25 History mcg chewable tablet dapagliflozin propanediol 10 mg 10 mg PO DAILY #90 tabs 09/27/20 02/22/25 02/22/25 Rx tablet (Farxiga) lisinopril 2.5 mg tablet 2.5 mg PO DAILY 09/13/21 02/22/25 02/22/25 History dicyclomine 10 mg capsule 10 mg PO QID 01/04/22 02/22/25 02/22/25 History oxybutynin chloride 5 mg tablet 5 mg PO BID 01/04/22 02/22/25 02/22/25 History pantoprazole 40 mg tablet,delayed 40 mg PO BID #180 tabs 01/23/22 02/22/25 02/22/25 Rx release (Protonix) medical marijuana 1 applicator as directed DAILY 04/17/22 02/22/25 02/22/25 History diclofenac sodium 1 % topical gel 4 g topical QID #100 grams 01/23/23 02/22/25 03/06/23 Rx (Arthritis Pain (diclofenac)) glucagon 1 mg solution for See Rx Instructions .Route 03/20/23 02/22/25 Unknown Rx injection (Glucagon Emergency Kit) .COMPLEX #1 ea front wheeled walker #1 ea 07/23/23 02/22/25 Unknown Rx ropinirole 4 mg tablet 4 mg PO TID 08/07/23 02/22/25 02/23/25 04:30 History vitamin-ferrous fumarate 1 tab PO BID 09/02/23 02/22/25 02/22/25 History 28 mg iron-folic acid 800 mcg tablet nystatin 100,000 unit/mL oral 5 ml mucous membrane QID PRN Mouth 11/20/23 02/22/25 02/22/25 History suspension Irritation tizanidine 4 mg tablet 4 mg PO BID PRN Muscle Spasm 12/23/23 02/22/25 02/22/25 History ondansetron 4 mg disintegrating 4 mg PO DAILY PRN nausea and 04/30/24 02/22/25 Unknown Rx tablet vomiting #10 tabs atorvastatin 10 mg tablet 10 mg PO DAILY 05/06/24 02/22/25 02/22/25 History Diabetic Shoes with 3 pairs of #1 ea 06/08/24 02/22/25 Unknown Rx inserts semaglutide 1 mg/dose (4 mg/3 mL) 1 mg (0.75 mL) SUBCUT Q7D #3 mL 09/29/24 02/22/25 02/17/25 Rx subcutaneous pen injector (Ozempic) FreeStyle Zain 2 Sensor (flash #6 ea 11/08/24 02/22/25 Unknown Rx glucose sensor) hydrocodone 10 mg-acetaminophen 1 tab PO BID PRN pain 15 days #30 11/30/24 02/22/25 Unknown Rx 325 mg tablet tabs amitriptyline 100 mg tablet 100 mg PO .HS 30 days #30 tabs 12/07/24 02/22/25 02/22/25 Rx duloxetine 60 mg capsule,delayed 60 mg PO QAM 30 days #30 caps 12/07/24 02/22/25 02/22/25 Rx release furosemide 20 mg tablet (Lasix) 40 mg PO QAM PRN Edema 12/07/24 02/22/25 02/22/25 History insulin glargine 100 unit/mL 60 unit SUBCUT DAILY 12/07/24 02/22/25 02/22/25 History subcutaneous solution (Lantus U-100 Insulin) paroxetine HCl 30 mg tablet (Paxil) 45 mg (1.5 x 30 mg) PO DAILY #45 12/07/24 02/22/25 02/22/25 Rx tabs topiramate 50 mg tablet 50 mg PO DAILY 30 days #30 tabs 12/23/24 02/22/25 02/22/25 Rx duloxetine 30 mg capsule,delayed 30 mg PO DAILY #90 caps 01/31/25 02/22/25 02/22/25 Rx release (Cymbalta) quetiapine 25 mg tablet (Seroquel) 25 mg PO .HS #30 tabs 01/31/25 02/22/25 02/22/25 Rx acarbose 25 mg tablet 25 mg PO TID 90 days #270 tabs 02/15/25 02/22/25 02/22/25 Rx levothyroxine 50 mcg tablet 50 mcg PO DAILY 02/21/25 02/22/25 02/22/25 History pioglitazone 30 mg tablet (Actos) 30 mg PO DAILY 02/21/25 02/22/25 02/22/25 History Allergies Allergy/AdvReac Type Severity Reaction Status Date / Time Antihistamines - Alkylamine Allergy Unknown ADR-Shakine Verified 02/22/25 08:49 ss Antihistamines - Ethanolamine Allergy Unknown ADR-Shakine Verified 02/22/25 08:49 ss Antihistamines - Allergy Unknown ADR-Shakine Verified 02/22/25 08:49 Ethylenediamine ss Antihistamines - Piperazine Allergy Unknown ADR-Shakine Verified 02/22/25 08:49 ss Antihistamines - Piperidine Allergy Unknown ADR-Shakine Verified 02/22/25 08:49 ss Current Medications Generic Name Dose Route Start Last Admin Trade Name Freq PRN Reason Stop Dose Admin Sodium Chloride 1,000 mls @ 15 mls/hr 02/23/25 06:20 02/23/25 06:45 Sodium Chloride 0.9% IV 02/24/25 06:19 15 mls/hr .Q24H PRN Administration COLONOSCOPY FLUIDS PFSH Anesthesia Medical History Metatarsalgia, left foot Essential hypertension Encounter for pre-operative examination Left upper extremity swelling Mass of left upper extremity Post-menopausal bleeding secondary amenorrhea not post menopausal bleeding Psychiatric care Problems related to lack of adequate sleep Problems related to lack of adequate sleep Cluster B personality disorder in adult MDD (major depressive disorder) 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 Chronic post-traumatic stress disorder (PTSD) Obstructive sleep apnea Generalized anxiety disorder Major depressive disorder, recurrent episode with mood-congruent psychotic features GI bleed due to NSAIDs History of gallbladder disease Diabetes mellitus Surgical History S/P insertion of spinal cord stimulator S/P cholecystectomy 2002 Carpal tunnel syndrome on right 2010 Family History Mother Heart disease Stroke Diabetes Brother Diabetes Grandmother Stroke maternal Social History Smoking and tobacco/nicotine status: unknown if used tobacco/nicotine Second hand smoke exposure: No Alcohol intake: never Substance/Drug Use: current Substance/Drug use frequency: daily Household members: spouse Housing: House Marital status: Number of children: 1 Highest education level completed: Associate Degree: Occupational, Technical, Vocational Program service: No Current occupational status: disabled Current occupational exposures/hazards: No Pets and animals: Yes Pets & animals: dog(s) Leisure activites: other Leisure activities details: computer Sexually active: Yes Do you think of yourself as: Straight/Heterosexual Current gender identity: Female Caitlin/Oriental Orthodox: Sikh Agree to transfusion: Yes Female Reproductive History Para: 1 Spontaneous abortions: No Data Anesthesia Cardiac Studies: Echocardiogram Ultrasound 02/20/21
[2025-02-23 08:07] VITALS: BP 131/41; PULSE 97; RESP 18; TEMP 36.6; O2SAT 99
--- NOTE | 2025-02-23 08:08 | SUR.OPER ---
cecum time [id number] to 0803
[2025-02-23 08:20] VITALS: BP 130/66; PULSE 79; RESP 18; O2SAT 100
[2025-02-23 08:30] VITALS: BP 131/69; PULSE 75; RESP 18; O2SAT 98
--- NOTE | 2025-02-23 08:45 | ANE.PACU2 ---
Inpatient post-anesthesia follow up: Airway intact: Yes Vital signs: Temperature 97.9 F Pulse Rate 75 Respiratory Rate 18 Blood Pressure 131/69 Pulse Oximetry 98 Oxygen Delivery Me thod Room Air Oxygen Flow Rate Fraction of Inspir ed Oxygen Hydration adequate: Yes Nausea and vomiting: No Pain level: 1 Mental status: Baseline
== END 2025-02-23 08:48 | disposition home or self-care (01) ==
PROVIDERS: Anesthesiology; PCP Nurse Practitioner Family; Visit Provider Surgery
PROC: 0DJD8ZZ Inspection of Lower Intestinal Tract, Via Natural or Artificial Opening Endoscopic (ICD-10-PCS; CPT 45378; principal; 2025-02-23 07:40)
DX: Z12.11 Encounter for screening for malignant neoplasm of colon (principal); K52.82 Eosinophilic colitis; I10 Essential (primary) hypertension; G47.33 Obstructive sleep apnea (adult) (pediatric); K21.9 Gastro-esophageal reflux disease without esophagitis; E11.9 Type 2 diabetes mellitus without complications; Z79.899 Other long term (current) drug therapy; Z79.890 Hormone replacement therapy; Z79.4 Long term (current) use of insulin; Z88.8 Allergy status to other drugs, medicaments and biological substances; Z79.85 Long-term (current) use of injectable non-insulin antidiabetic drugs; Z90.49 Acquired absence of other specified parts of digestive tract
CPT/HCPCS: 36416; 45380; 81025; 82962; 88305; J2704; J3490; J7030; J9999

== ENCOUNTER → 2025-03-08 10:58 | Outpatient (BNVA) | payer MEDICARE, SELFPAY ==
[2024-11-24 14:11] VITALS: BP 122/70; BMI 42.6
== END ==
PROVIDERS: PCP Nurse Practitioner Family; Visit Provider Surgery
DX: Z09 Encounter for follow-up examination after completed treatment for conditions other than malignant neoplasm (principal)
CPT/HCPCS: 99214

== ENCOUNTER → 2025-03-16 11:15 | Outpatient (BNVA) | payer MEDICARE, MEDICAID, SELFPAY ==
[2024-11-24 14:11] VITALS: BP 122/70; BMI 42.6
== END ==
PROVIDERS: PCP Nurse Practitioner Family; Visit Provider Physician Assistant
DX: M65.911 Unspecified synovitis and tenosynovitis, right shoulder (principal)
CPT/HCPCS: 99213

== ENCOUNTER 2025-04-27 09:32 | Outpatient (CLI) | payer MEDICARE, SELFPAY ==
[2024-11-24 14:11] VITALS: BP 122/70; BMI 42.6
--- NOTE | 2025-04-27 09:40 | MM_ITS ---
WS: [id number] BILATERAL SCREENING DIGITAL TOMOSYNTHESIS MAMMOGRAM WITH CAD HISTORY: SCREENING COMPARISON: 07/02/2022, 07/25/2020 Bilateral CC and MLO views with tomosynthesis and synthetic mammography submitted. Computer aided detection analyzed. Breast composition: There are scattered areas of fibroglandular density. No suspicious masses, microcalcifications or architectural distortion. Stable asymmetries in the anterior RIGHT breast. MM/MM scr BI tomosynthesis [id number] IMPRESSION: BI-RADS: 2 - Benign. FOLLOW UP: 1 Year Follow-up
== END 2025-04-27 09:33 | disposition home or self-care (01) ==
PROVIDERS: PCP Nurse Practitioner Family; Visit Provider Nurse Practitioner Family
DX: Z12.31 Encounter for screening mammogram for malignant neoplasm of breast (principal); R92.323 Mammographic fibroglandular density, bilateral breasts; N64.89 Other specified disorders of breast
CPT/HCPCS: 77063; 77067

== ENCOUNTER → 2025-05-03 10:07 | Outpatient (BNVA) | payer MEDICARE, SELFPAY ==
[2024-11-24 14:11] VITALS: BP 122/70; BMI 42.6
== END ==
PROVIDERS: PCP Nurse Practitioner Family; Visit Provider Internal Medicine
DX: E11.9 Type 2 diabetes mellitus without complications (principal); E03.9 Hypothyroidism, unspecified; E78.2 Mixed hyperlipidemia
CPT/HCPCS: 99214

== ENCOUNTER → 2025-06-02 08:25 | Outpatient (BNVA) | payer MEDICARE, SELFPAY ==
[2024-11-24 14:11] VITALS: BP 122/70; BMI 42.6
== END ==
PROVIDERS: PCP Nurse Practitioner Family; Visit Provider Podiatrist Foot & Ankle Surgery
DX: E11.42 Type 2 diabetes mellitus with diabetic polyneuropathy (principal); M20.40 Other hammer toe(s) (acquired), unspecified foot; M21.41 Flat foot [pes planus] (acquired), right foot; M21.42 Flat foot [pes planus] (acquired), left foot; L84 Corns and callosities; L60.3 Nail dystrophy; M21.611 Bunion of right foot; M21.612 Bunion of left foot; M20.41 Other hammer toe(s) (acquired), right foot; M20.42 Other hammer toe(s) (acquired), left foot; Z79.4 Long term (current) use of insulin
CPT/HCPCS: 11055; 11721

== ENCOUNTER → 2025-06-17 09:22 | Outpatient (BNVA) | payer MEDICARE, SELFPAY ==
[2024-11-24 14:11] VITALS: BP 122/70; BMI 42.6
== END ==
PROVIDERS: PCP Nurse Practitioner Family; Visit Provider Student in an Organized Health Care Education/Training Program
DX: M77.8 Other enthesopathies, not elsewhere classified (principal); M19.011 Primary osteoarthritis, right shoulder; M65.911 Unspecified synovitis and tenosynovitis, right shoulder; Z71.89 Other specified counseling; M77.11 Lateral epicondylitis, right elbow
CPT/HCPCS: 20610; 77002; 99214; J3301; J9999

== ENCOUNTER 2025-06-30 11:05 | Outpatient (CLI) | payer MEDICARE, SELFPAY ==
[2024-11-24 14:11] VITALS: BP 122/70; BMI 42.6
--- NOTE | 2025-06-30 11:11 | FL_ITS ---
WS: [id number] Exam: FL barium swallow modifd [id number] Date/Time of Exam: 06/30/2025 11:13 AM Reason For Exam: Other dysphagia Fluoroscopy time: 2min [id number] minutes # of spot films: Modified barium swallow test was performed in conjunction with the speech therapy service. Oral pharyngeal phase of swallowing was normal. The patient experienced a single minor episode of penetration when ingesting thin liquid. No sign of aspiration. The patient swallowed a barium tablet without difficulty. FL/FL barium swallow modifd [id number] IMPRESSION: 1. The patient experienced a single minor episode of penetration into the laryn geal inlet when ingesting thin liquid barium. The exam was otherwise unremarkab le. A separate report with detailed recommendations will follow from the speech the rapy service.
== END 2025-06-30 11:06 | disposition home or self-care (01) ==
LOC: RAD 11:06
PROVIDERS: PCP Nurse Practitioner Family; Visit Provider Nurse Practitioner Family
DX: R13.10 Dysphagia, unspecified (principal); R93.3 Abnormal findings on diagnostic imaging of other parts of digestive tract
CPT/HCPCS: 74230; 92611

== ENCOUNTER → 2025-08-10 13:24 | Outpatient (BNVA) | payer MEDICARE, SELFPAY ==
[2024-11-24 14:11] VITALS: BP 122/70; BMI 42.6
== END ==
PROVIDERS: PCP Nurse Practitioner Family; Visit Provider Student in an Organized Health Care Education/Training Program
DX: M65.911 Unspecified synovitis and tenosynovitis, right shoulder (principal)
CPT/HCPCS: 73030; 99213

== ENCOUNTER 2025-08-11 12:27 | Outpatient (CLI) | payer MEDICARE, SELFPAY ==
[2024-11-24 14:11] VITALS: BP 122/70; BMI 42.6
--- NOTE | 2025-08-11 12:36 | USCV_ITS ---
Tamara Hernandez Age: 49 Gender: F : 1975 Exam Date: 08/11/2025 12:42 Ordering Phys: Violetta Dubon Technologist: [place] [facility] [place]: varicose veins, swelling HISTORY: Lower extremity swelling. PROCEDURES: Venous duplex imaging was performed in only the left lower extremity. Serial compression, augmentation maneuvers, and spectral Doppler flow evaluation were performed. FINDINGS: Examination was technically limited due to body habitus. No evidence of DVT seen in any vessel visualized at this time. CONCLUSIONS No evidence of left lower extremity DVT. Sigifredo Paredes MD (Electronically Signed) Final Date: 11 August 2025 13:40 S
== END 2025-08-11 12:28 | disposition home or self-care (01) ==
LOC: RAD 12:28
PROVIDERS: PCP Nurse Practitioner Family; Visit Provider Nurse Practitioner
DX: I83.892 Varicose veins of left lower extremity with other complications (principal); R22.32 Localized swelling, mass and lump, left upper limb
CPT/HCPCS: 93971